=== PATIENT | female | born 1955 | race Caucasian/White ===

== ENCOUNTER 2024-12-19 18:36 | Emergency (ER) | payer MEDICARE, SELFPAY ==
--- NOTE | ~2024-12-19 | XR_ITS ---
CLINICAL HISTORY: pain Right elbow three views Comparison: None Findings: No acute fracture or dislocation noted. No significant joint effusion identified. No soft tissue foreign body. Impression: No acute bony abnormality This document has been electronically signed by: Huan Cano MD on 12/19/2024 20:13:53
--- NOTE | ~2024-12-19 | XR_ITS ---
CLINICAL HISTORY: pain s p fall Right wrist four views Comparison: None Findings: Nondisplaced comminuted distal radius fracture. Nondisplaced ulnar styloid fracture. Diffuse decreased bone density. No radiopaque foreign body. Impression: Nondisplaced distal radial and ulnar styloid fractures This document has been electronically signed by: Huan Cano MD on 12/19/2024 20:15:31
[2024-12-19 19:00] VITALS: BP 156/56; PULSE 78; RESP 20; TEMP 36.9; O2SAT 99; BMI 30.7
--- NOTE | 2024-12-19 19:02 | ED_ITS ---
HPI - Fall General Chief Complaint: Fall Stated Complaint: ?R arm fx/ sent from Time Seen by Provider: 12/20/24 00:17 Source: patient Mode of arrival: ambulatory Limitations: no limitations History of Present Illness ED Provider: kiley maloney NP HPI Narrative: Patient is a 69-year-old female with past medical history of hypertension, hyperlipidemia, CKD stage 3 who presents emergency department with her son for evaluation. Reports a mechanical slip and fall on the ice today landing onto her right arm. Endorsing pain to the right wrist with swelling and deformity, and pain at the elbow as well. Denies numbness tingling or cold sensation to the hand. She denies associated head strike or loss of consciousness. No use of anticoagulants. Related Data Allergies Allergy/AdvReac Type Severity Reaction Status Date / Time No Known Allergies Allergy Verified 12/19/24 19:03 [No Known Allergies*] Review of Systems Review of Systems: Yes all other systems are reviewed and are negative PMFSH Past Medical History Attestation statement: The following information was validated with the patient. Source: old records reviewed Social History Social History Do you have a plan to hurt others: No Plan Physical Exam 2 Vital Signs: Vital Signs: Last Vital Signs Temp 98.4 F 12/19/24 19:00 Pulse 78 12/19/24 19:00 Resp 20 12/19/24 19:00 BP 156/56 H 12/19/24 19:00 Pulse Ox 99 12/19/24 19:00 O2 Del Method Room Air 12/19/24 19:00 BMI result Body Mass Index 30.7 Appearance: Alert.?Oriented to person, place and time. No acute distress.?Normal affect. Head: Normocephalic, atraumatic Eyes: Pupils equal, round and reactive to light.? ENT: Pharynx normal.?? Neck: Normal inspection.? Neck supple.?? CVS: Heart sounds normal. Normal heart rate and rhythm.? Pulses normal.?? Respiratory: No respiratory distress.? Lung sounds clear to auscultation bilaterally?? Abdomen: Soft and non-tender. Normoactive bowel sounds. Skin: Skin warm and dry.? Normal skin color.? Extremities: Bony deformity to the right wrist with localized swelling localized ecchymosis over the dorsal wrist, tenderness upon palpation. 2+ radial pulse. Full range of motion to the digits. Full range of motion to the elbow without ecchymosis or swelling. Mild tenderness along the olecranon Neuro: Moves all extremities spontaneously. Sensation intact bilaterally. CN II- XII intact. No focal neuro deficits. Ambulates with normal steady gait. Course Course Course Narrative: This is an RME: Additional HPI, ROS, PE not included below will be deferred to primary provider. RME assessment and note performed by: Yajaira Betts PA-C This is a 69-year-old female, with a history of hypertension, hyperlipidemia, and CKD stage III, who presents emergency department with concerns for right wrist pain status post mechanical fall which occurred today. Patient with bony deformity noted to the right wrist. He also has tenderness palpation along the olecranon. Plan: X-ray right wrist, right elbow Procedures Orthopedic Splinting/Casting Injury #1: Side: right Upper Extremity Injury Location: wrist Upper Extremity Immobilizer: sugar tong splint Medical Decision Making Medical Decision Making MDM Narrative: Patient is a 69-year-old female with past medical history of hypertension, hyperlipidemia, CKD stage 3 who presents emergency department for evaluation after mechanical slip and fall with a resultant pain to the right wrist and elbow as per HPI. Exam most concerning for osseous deformity to the right wrist, XR of the wrist and elbow was obtained, revealing nondisplaced comminuted distal radius fracture, and ulnar styloid fracture. Extremities neurovascularly intact distally. No acute fracture in the elbow. She was placed in a sugar- tong splint, and remained neurovascularly intact distally after application. Discussed outpatient follow-up with Orthopedics, conservative treatment over the next few days worrisome signs and symptoms that would warrant re-evaluation in the emergency department. She denies any head strike or loss of consciousness no use of anticoagulants she has no focal neurological deficits on evaluation. At this time feel that she is stable for discharge home outpatient follow-up with her primary care doctor/Orthopedics. All questions answered Differential Diagnosis Differential Diagnoses: The differential diagnosis associated with the presentation includes (See narrative above) Independent Interpretation I performed an independent interpretation of an: Plain X-Ray (See narrative above) Radiology Impression Discussion of test interpretation with radiology: I have reviewed the radiologist's reading. Radiologist Impression: Right wrist four views Comparison: None Findings: Nondisplaced comminuted distal radius fracture. Nondisplaced ulnar styloid fracture. Diffuse decreased bone density. No radiopaque foreign body. Impression: Nondisplaced distal radial and ulnar styloid fractures Right elbow three views Comparison: None Findings: No acute fracture or dislocation noted. No significant joint effusion identified. No soft tissue foreign body. Impression: No acute bony abnormality Independent Historian Clinical information obtained from an independent historian. History obtained from or confirmed by: Other (Son) External Record Review External record reviewed: Outpatient record Prescription Management I considered prescription management with: Pain Medication Discharge Plan Discharge Clinical Impression: Distal radius fracture, right, Fracture of right ulnar styloid Patient Disposition: Home, Self-Care Instructions: Wrist Fracture in Adults (ED), R.I.C.E. Treatment (ED) Additional Instructions: Be sure to rest over the next few days, leave the splint in place until seen by Orthopedics. The splint can not get wet. If you feel as though you are having severe increasing pain, sensation of swelling or as if the splint is too tight, numbness or tingling to the fingers or inability to move the fingers, the tips of the fingers turning abnormal color you should seek re-evaluation. You can take Tylenol 500 mg, 2 tablets (1,000mg) every 4-6 hours as needed for pain, but not to exceed 3 doses daily (3,000mg).? You will need to contact the orthopedic office tomorrow to arrange for a follow- up appointment. They will not contact you directly. Referrals: [facility] [Provider Group] Physician,Unknown J [Primary Care Provider] - Print Language: Ukrainian
[2024-12-20] MEDS: Acetaminophen 325 MG TABLET 975 MG PO (01:20)
[2024-12-20 01:57] VITALS: BP 139/75; PULSE 79; RESP 18; TEMP 36.8; O2SAT 97
== END 2024-12-20 01:57 | disposition home or self-care (01) ==
PROVIDERS: Emergency Provider Emergency Medicine; PCP Hospitalist
DX: S52.501A Unspecified fracture of the lower end of right radius, initial encounter for closed fracture (principal); S52.614A Nondisplaced fracture of right ulna styloid process, initial encounter for closed fracture; W00.0XXA Fall on same level due to ice and snow, initial encounter; M79.601 Pain in right arm; Y93.9 Activity, unspecified; Y92.9 Unspecified place or not applicable; Y99.9 Unspecified external cause status
CPT/HCPCS: 29125; 73080; 73110; 99283; 99284

== ENCOUNTER → 2024-12-19 19:05 | Outpatient (BNV) | payer MEDICARE, MEDICAID, SELFPAY | PROVIDERS: Visit Provider Radiology Diagnostic Radiology | DX: S52.351A Displaced comminuted fracture of shaft of radius, right arm, initial encounter for closed fracture (principal); M25.521 Pain in right elbow; W00.0XXA Fall on same level due to ice and snow, initial encounter | CPT/HCPCS: 73080; 73110 ==

== ENCOUNTER 2024-12-26 08:43 | Outpatient (REF) | payer MEDICARE, SELFPAY ==
--- NOTE | ~2024-12-26 | XR_ITS ---
EXAMINATION: XR WRIST 3 OR MORE VIEWS RIGHT HISTORY: M25.531 - Pain in right wrist COMPARISON: Comparison is made with a prior examination dated 12/19/2024. FINDINGS: Three views of the right wrist are submitted. The bones are osteopenic. Again seen is a comminuted intra-articular fracture of the distal radius. The fracture line remains visible. An ulnar styloid fracture is also noted. The joint spaces are preserved. There is diffuse soft tissue swelling. XR/XR wrist RT min 3V IMPRESSION: Osteopenia. Comminuted intra-articular fracture of the distal radius with an associated ulnar styloid fracture, without significant change. Electronically signed by: Carlos Manuel Vega MD 12/27/2024 07:40 AM MARIA ANTONIA
--- OUTSIDE RECORDS SUMMARY | 2024-12-27 09:26 | XMS_ITS ---
Author Organization [facility] Address [address] [place] [id number] Care Team Providers Care Fitness Plan Coordinator Name Role Phone KATHARINA ANGEL Primary Care Provider [phone] REASON FOR VISIT referral to Dr. Moy Encounters Encounter Location Date Provider Diagnosis [facility] [address] [address] 12/22/2024 KATHARINA ANGEL Plan Of Treatment Next Appt Details Provider Name:KATHARINA ANGEL , 06/14/2025 09:45:00 AM, [address] [place] [address] [address], [place], [address], Progress Notes * Ailyn BOSWELL: (69 yo F)Acc No.[id number]:12/22/2024 Patient:?Ben BOSWELL :1955???Age:69 Y???Sex:Female Address:[address], [place] [address] * * Date:?
--- OUTSIDE RECORDS SUMMARY | 2024-12-27 09:26 | XMS_ITS ---
Author Organization [facility] Address [address] [facility] [address] [place] [address] Care Team Providers Care Procurement Engineer Name Role Phone KATHARINA ANGEL Primary Care Provider Allergies No Known Allergies Reason For Referral Reason EUN- Dr Moy Diagnosis 1 Anxiety disorder, un specified (F41.9) Referral Organization [facility] Referring Provider First Name [...] days Active Vitamin D (Ergocalciferol) 1.25 MG (59722 UT) TAKE 1 CAPSULE BY MOUTH ONE [...] Problem Chronic kidney disease stage 3B (disorder) (904783562) Chronic kidney disease, stage 3b (N18.32) Active confirmed Problem Obesity due to excess calories (780038021) Other obesity due to excess calories (E66.09) Active confirmed Vital Signs Temperature 97.3 degrees Fahrenheit 12/13/19 25 Oximetry 98 % 12/13/2024 Heart Rate 80 /min 12/13/2024 Blood pressure systolic 130 mm Hg 12/13/19 25 Blood pressure diastolic 80 mm Hg 025 Weight 175.2 lbs 12/13/2024 BMI 33.1 kg/m2 12/13/2024 Height 61 in 12/13/2024 Encounters Encounter Location Date Provider Diagnosis [facility] [address] [address] 12/13/2024 KATHARINA ANGEL Encounter for genera l [...] (ICD-10 - Z00.00) is 69 years old Armenian speaking lady is accompanied by her daughter [...] lisinopril, atorvastatin and Zetia. 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 Foot care [...] Dr. Camarillo. Multiple joint osteoarthritis. She takes orvc-otu-qzidjfw Tylenol and also takes tizanidine 2 mg [...] (ICD-10 - E11.8) is 69 years old Armenian speaking lady is accompanied by her daughter [...] lisinopril, atorvastatin and Zetia. 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 Foot care [...] Dr. Camarillo. Multiple joint osteoarthritis. She takes krgj-dns-ncsbiea Tylenol and also takes tizanidine 2 mg [...] (ICD-10 - I10) is 69 years old Armenian speaking lady is accompanied by her daughter [...] lisinopril, atorvastatin and Zetia. 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 Foot care [...] Dr. Camarillo. Multiple joint osteoarthritis. She takes guij-mml-znrmath Tylenol and also takes tizanidine 2 mg [...] (ICD-10 - E78.2) is 69 years old Armenian speaking lady is accompanied by her daughter [...] lisinopril, atorvastatin and Zetia. 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 Foot care [...] Dr. Camarillo. Multiple joint osteoarthritis. She takes dnmn-zow-mohnrwe Tylenol and also takes tizanidine 2 mg [...] (ICD-10 - N18.32) is 69 years old Armenian speaking lady is accompanied by her daughter [...] lisinopril, atorvastatin and Zetia. 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 Foot care [...] Dr. Camarillo. Multiple joint osteoarthritis. She takes ywjg-zby-eprljvz Tylenol and also takes tizanidine 2 mg [...] (ICD-10 - M81.0) is 69 years old Armenian speaking lady is accompanied by her daughter [...] lisinopril, atorvastatin and Zetia. 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 Foot care [...] Dr. Camarillo. Multiple joint osteoarthritis. She takes ypve-vot-mfhcwcb Tylenol and also takes tizanidine 2 mg [...] (ICD-10 - E66.09) is 69 years old Armenian speaking lady is accompanied by her daughter [...] lisinopril, atorvastatin and Zetia. 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 Foot care [...] Dr. Camarillo. Multiple joint osteoarthritis. She takes rujt-ugz-yvprmhb Tylenol and also takes tizanidine 2 mg [...] (ICD-10 - Z71.3) is 69 years old Armenian speaking lady is accompanied by her daughter [...] lisinopril, atorvastatin and Zetia. 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 Foot care [...] Dr. Camarillo. Multiple joint osteoarthritis. She takes icoa-jvq-jnrizlr Tylenol and also takes tizanidine 2 mg [...] Future Test Test Name Order Date Hemoglobin [id number] 12/13/2024 Referrals Referral Date Details 12/13/2024 12/13/2024, EUN- Dr Moy Next Appt Details Follow Up: 6 Months, Reason: Provider Name:POSADAS A GUL , 06/14/2025 09:45:00 AM, [address] [address], [place], [address], Progress Notes * Amado BOSWELLaDOB: [birth year] (69 yo F)Acc No.[id number]:12/13/2024 Progress Note Patient:?Ben BOSWELL Provider:?KATHARINA ANGEL MD :1955???Age:69 Y???Sex:Female D ate:12/13/2024 Address:[address] [place], [place] [id number] Subjective: * Chief Complaints: * ???Medicare Wellness [...] a day Vitamin D (Ergocalciferol) 1.25 MG (57772 UT) Capsule TAKE 1 CAPSULE BY MOUTH [...] day Taking Vitamin D (Ergocalciferol) 1.25 MG (62043 UT) Capsule TAKE 1 CAPSULE BY MOUTH [...] Ht: 61 in. * ???Past Orders: ???Lab:Hemoglobin [id number] (Order Date - 06/12/2024) (Collection Date & Time - 12/11/2024 10:57 AM) ? Value Reference Range ?Hemoglobin A1c/ Hemoglobin total 8.0 H 4.8-5.6 - % ???Lab:Albumin/Creatinine Ra oumar,[id number] (Order Date - 06/12/2024) (Collection Date & Time - 12/11/2024 10:57 AM) ? Value Reference Range ?Creatinine, Urine 113.6 No t Estab. - mg/dL ?Albumin, Urine 218.3 Not E stab. - ug/mL ?Alb/Creat Ratio 192 H 0-29 - mg/g creat ???Lab:Comp. Metabolic Panel [id number] (Order Date - 06/12/2024) (Collection Date & [...] 37 L >59 - mL/min/1. 73 ???Lab:Lipid [id number] (O rder Date - 06/12/2024) (Collection Date [...] surveillance - Z71.3??? is 69 years old Armenian speaking lady is accompanied by her daughter [...] lisinopril, atorvastatin and Zetia.? She is seen modular home crew member in the past 1 year.? Foot care [...] Dr. Camarillo. Multiple joint osteoarthritis.? She takes dobm-nnh-mhekgfr Tylenol and also takes tizanidine 2 mg [...] day, 30 days, 5, Refills 6.?LAB: Hemoglobin [id number] (Ordered for 12/13/2024) 3.?Age-related osteoporosis without current pathological fracture?Imaging: Bone Density 4.?Others? Referral To:Psychiatry ?Reason:EUN- Dr Moy * Procedure Codes:?G0439 ANNUA L WELLNESS VST; PPS SUBSQT [id number] ELECTROCARDIOGRAM, [id number] HG A1C LEVEL LT 7.0%1123F ACP DISCUSS/DSCN MKR [id number] Scrn patricia perf rslts [id number] COLORECTAL CA SCREEN DOC REV, Modifiers: 8P G8417 BMI >=30 CALCUATE W/CMRQDPRXU2511 NEG SCR D PT NOT ELIG F/U/PLN [id number] ELDER MALTX SCR DOC NEG NO F/U [id number] Pt scrn tbco id as non [id number] MOST RECENT SYSTOLIC BP < 140MM [id number] MOST RECENT DIASTOLIC BP < 90MM [id number] NORMAL BP READING DOC F/U NOT RQR * Preventive Medicine:?COVID (2) 2020 DECLINES FLU PCV 13 12/2016 TDAP 09/2022 BMD NO COLONOSCOPY DECLINES? EYE EXAM 2024 E[facility] L[facility]IK C[facility]? BUSINESS INTELLIGENCE ARCHITECT [facility]? MAMMOGRAM [facility] 12/2022. * Follow Up:?6 Months * * Sign off status: Completed true * Provider:?KATHARINA ANGEL MD Date:?12/13 Generated for Nelly castro/Abhay/Christen on:?12/27/2024 09:26 AM EST History and Physical Notes * HPI [...] Poor appetite or overeating: More than h halfway the days Feeling bad about yourself o [...] Visit Type of Visit -: Subsequent Annual [facility] Visit Language or Communication barrier addressed -: Y es Health Risk Assessment DEMOGRAPHICS: - - How old are you?: [age] - How would you best describe your [facility] city?: __ - How would you [...]
--- OUTSIDE RECORDS SUMMARY | 2024-12-27 09:26 | XMS_ITS | Clinical Summary ---
Author Organization [facility] Address [address] [place] [address] Care Team Providers Care Director Career Services Name Role Phone Vandana Goode NP Primary Care Provider Source Comments PLEASE NOTE, if this patient [...] complication, without long-term current use of insulin ([facility]) 1 Strip as needed for high blood sugar Dx.: E11.9 Use tid as directed for dm 100 Each 11 09/19/20 18 Active blood-glucose meter (FREESTYLE LITE METER) monitoring kitIndications:T ype 2 diabetes mellitus without complication, without long-term current use of insulin ([facility]) as needed for blood glucose monitoring 1 Each 09/19/20 18 Active lancetsIndicatio ns:Type 2 diabetes mellitus without complication, without long-term current use of insulin ([facility]) Freestyle lite lancets Dx.: E11.9 Use tid [...] complication, without long-term current use of insulin ([facility]),Essent ial hypertension TAKE 1 TABLET BY MOUTH EVERY DAY 30 Tablet 11 12/02/19 21 Active DULoxetine (CYMBALTA) [address] capsuleIndicatio ns:Current severe episode of major depressive disorder without psychotic features without prior episode ([facility]) Take 1 Capsule by mouth once [...] complication, without long-term current use of insulin ([facility]) TAKE 1 TABLET BY MOUTH ONCE [...] complication, without long-term current use of insulin ([facility]) TAKE 1 TABLET BY MOUTH ONCE DAILY WITH BREAKFAST 30 Tablet 2 10/12/20 22 Active Active Problems Problem Noted Date Diagnosed Date Class 1 obesity due to exces s calories with serious comorbidity and body mass index (BMI) of 31.0 to 31.9 in adult 03/25/2021 Current severe episode of ma alis depressive disorder without psychotic features without prior episode ([facility]) 02/27/2021 Endometrial polyp 08/20/2020 Overview (08/20/2020): 07/22/[address] Bolton Post-menopausal bleeding 08/24/2019 Overview (08/24/2019): 08/19/19 - seen at [facility] ED c/o vaginal bleeding. Pelvis U/S: [...] kidney disease) stage 3, GFR 30-59 ml/min ([facility]) 01/16/2018 Overview (11/06/2024): 11/06/24 f/u Dr [...] episode 12/21/17 01/11/2018 Overview (01/11/2018): 12/21-12/22/17 [place] [facility] [place] of syncope/ unreponsivenss following an emotional conversation with son who is in [place]. She had NIH score of 3 initially for being nonverbal but otherwise normal. CT and CTA h/n of head neg, tele monitoring without any cardiac arrthymias. Discharged next day. Outpatient ECHO and Holter monitor recommended Pap smear of cervix declined 12/30/2016 Colonoscopy refused 12/30/2016 Non-Surinamese speaking patient 10/13/2016 Non compliance with medical [...] c3-4 foramen. 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 ([facility]) 09/05/2015 Left shoulder pain 09/04/2015 Overview [...] complication, without long-term current use of insulin ([facility]) 06/01/2013 Resolved Problems Problem Noted Date [...] 06/02/2022, 08/0 12/2021, 12/15/2021, Additional history exists [id number] ( season) 2024 021, 12/28/2020 Imm-Influenza (#1) [...] complication, without long-term current use of insulin ([facility]) LIPID PANEL Routine 01/14/2021 12:00 PM EDT Type 2 diabetes mellitus without complication, without long-term current use of insulin ([facility]) HEMOGLOBIN GLYCOSYLATED A1C Routine 01/14/2021 12:00 PM EDT Type 2 diabetes mellitus without complication, without long-term current use of insulin ([facility]) MICROALBUMIN/CREATININ E RATIO, URINE, RANDOM Routine 01/14/2021 11:54 AM EDT Type 2 diabetes mellitus without complication, without long-term current use of insulin ([facility]) MAMMOGRAM, ABSTRACTED DISCRETE Routine 06/23/2019 8:55 AM EDT DILATED RETINAL EXAM W/EVIDENCE OF RETINOPATHY Routine 07/21/2018 8:36 AM EDT HEPATITIS A,B,C PANEL Routine 01/14/2018 10:53 AM EDT Encounter to establish care from Last 3 Months or Most Recently Relevant to Health Maintenance Results * (ABNORMAL) HEMOGLOBIN, GLYCOSYLATED (A1C) (01/14/2021 12:00 PM EDT) GLYCATED HEMOGLOBIN A1C 8.4(H) <6.5 % [facility] EST[facility]ER[facility] GLUCOSE 194 mg/dL [facility] Blood Blood / Unknown 01/14/2021 1 2:00 PM EDT 01/14/2021 4:23 PM EDT Randy French [facility] - 01/14/2021 8:07 PM EDT [employer], [place] [address] Business Advisor - Leandra Anderson MD PT ID [id number] ORD# [id number] Melissa Reyes [facility] - BLOOD DRAW Final Re sult Performing Organization Address City/[facility]/ZIP Co de Phone Number [address] [address], [place] [phone] * (ABNORMAL) LIPID PANEL (01/14/2021 12:00 PM EDT) CHOLESTEROL 168 0 - 200 mg/dL [facility] TRIGLYCERIDES 198(H) 0 - 150 mg/dL [facility] HDL CHOLESTEROL 62 >40 mg/dL [facility] LDL CALCULATED 67 0 - 100 mg/dL [facility] TC-HDLC RATIO 2.7 0 - 4.4 mg/dL [facility] Blood Blood / Unknown 01/14/2021 1 2:00 PM EDT 01/14/2021 4:23 PM EDT Narrative [facility] - 01/14/2021 5:10 PM EDT [facility] [employer], [place] [address] Business Advisor - Leandra Anderson MD PT ID [id number] ORD# [id number] Melissa Reyes [facility] - BLOOD DRAW Final Re sult Performing Organization Address [facility]/ZIP Co de Phone Number [address] [address], * (ABNORMAL) COMPRE METAB PANEL (01/14/2021 12:00 PM EDT) GLUCOSE 260(H) 70 - 100 mg/dL [facility] Comment:Reference range appl icable to fasting specimens only BUN 54(H) 5 - 25 mg/dL [facility] CREAT 1.49(H) 0.5 - 1.1 mg/dL [facility] GLOMERULAR FILTRATION RATE 35 [facility] Comment: If patient is -[place], multiply result by 1.21 Chronic Kidney Disease: < 60 ml/min/1.73 square meters Kidney Failure: < 15 ml/min/1.73 square meters SODIUM 137 135 - 145 mEq/L [facility] POTASSIUM 4.1 3.5 - 5.5 mmol/L [facility] CHLORIDE 104 96 - 110 mmol/L [facility] CO2 24 21 - 32 mmol/L [facility] ANION GAP 9 3 - 11 [facility] CALCIUM 10.0 8.5 - 10.5 mg/dL [facility] TOTAL PROTEIN 7.6 6.0 - 8.0 G/dL [facility] ALBUMIN 4.0 3.2 - 5.0 G/dL [facility] BILI, TOTAL 0.5 0.0 - 1.4 mg/dL [facility] SGOT 12 10 - 42 U/L [facility] SGPT 28 10 - 60 U/L [facility] ALK PHOS 137(H) 42 - 121 U/L [facility] Blood Blood / Unknown 01/14/2021 1 2:00 PM EDT 01/14/2021 4:23 PM EDT Narrative [facility] - 01/14/2021 5:10 PM EDT [facility], [place] [address] Business Advisor - Leandra Anderson MD PT ID [id number] ORD# [id number] Melissa Reyes [facility] - BLOOD [place]RAW [place] [address], * MICROALBUMIN/CREATININE RATIO, URINE, RANDOM (01/14/2021 11:54 AM EDT) CREATININE, RANDOM URINE 113 mg/dL [facility] MICROALBUMIN, RANDOM 15.7 0.0 - 29.0 mg/L [facility] MICROALB/CRE RATIO RANDOM 13.8 0.0 - 30.0 mg/G [facility] Urine Urine specimen / Unknown 01/14/2021 11:54 AM EDT 01/14/2021 4:23 PM EDT Narrative [facility] - 01/14/2021 5:24 PM EDT [facility] [employer], a member of [address] [address] Business Advisor - Leandra Anderson MD PT ID [id number] ORD# [id number] Melissa Reyes [facility] - NO BLOOD DRAW Edite d Result - Final [address] [address], * MAMMOGRAM, ABSTRACTED (06/23/2019 8:55 AM EDT) MAMMOGRAM NEGATIVE NEGATIVE Anatomical Region Laterality Modality Other Impressions 06/23/2019 8:55 AM EDT No mammogramic evidence of malignancy BIRADS - 1 negative repeat 1 year Provider [facility] Final Result * DILATED RETINAL EYE EXAM WITH INTERPRETATION BY AN COUNTER CUTTER OR SPECIAL PROJECTS MANAGER DOCUMENTED AND REVIEWED (DM)4 (07/21/2018 8:36 AM EDT) Impressions Danielle Neumann MA - 07/21/2018 8:36 AM EDT DM diabetes with mild, non-proliferative diabetic retinopathy noted- both eyes Repeat 1 year Provider [facility] OTHER Final Result * (ABNORMAL) HEPATITIS A,B,C PANEL (01/14/2018 10:53 AM EDT) HEPATITIS B SURFACE ANTIBODY NEGATIVE NEGATIVE [facility] HEPATITIS B SURFACE ANTIGEN NEGATIVE NEGATIVE [facility] Comment: Over the counter supplements containing high doses of biotin may interfere with this assay. ??If interference is suspected, patients shoud be retested after refraining from biotin supplements for 72 hours. HEPATITIS C VIRUS DIAGNOSTIC NEGATIVE NEGATIVE [facility] HEPATITIS A ANTIBODY TOTAL POSITIVE(A) NEGATIVE [facility] Comment: Over the counter supplements containing high doses of biotin may interfere with this assay. ??If interference is suspected, patients shoud be retested after refraining from biotin supplements for 72 hours. HEPATITIS B CORE ANTIBODY NEGATIVE NEGATIVE [facility] Blood specimen (specimen) Blood / Unknown 01/14/2018 10:53 AM EDT 01/14/2018 10:56 AM EDT Narrative [facility] - 01/14/2018 12:46 PM EDT [facility] [employer] [address] [place] [address] PT ID [id number] ORD# [id number] us Sujey Alfaro PA-C LAB - BLOOD DRAW Edited R esult - Final [facility] [address] [place] [address], from Last 3 Months or Most Recently Relevant to Health Maintenance Insurance [facility] MEDICAID MEDICARE - [place] Care Teams Director Career Services Relationship Specialty Start Date End Date Vandana Goode NP [address] [place] [phone] PCP - General Family Medicine, REVENUE AGENT 08/28/24
--- OUTSIDE RECORDS SUMMARY | 2024-12-27 09:26 | XMS_ITS | Encounter Summary ---
Author Organization [facility] Address [address] [place] [address] Care Team Providers Care Operating Engineer Name Role Phone Vandana Goode FENDER MECHANIC APPRENTICE Primary Care Provider [phone] Encounter Details Date Type Department Care Team (Late st Contact Info) Description 10/21/2015 Interim Notes [facility] [address] [place] [phone] Kerrie Wooten, COUNSELOR [address] [place] [address] Social History Tobacco Use Types Packs/Day Years [...] documented as of this encounter Care Teams Operating Engineer Relationship Specialty Start Date End Date Vandana Goode NP [address] [place] [address] PCP - General Family Medicine, FENDER MECHANIC APPRENTICE 08/28/24 documented as of this encounter
--- OUTSIDE RECORDS SUMMARY | 2024-12-27 09:26 | XMS_ITS ---
Author Organization [facility] Address [address] [place] [phone] Care Team Providers Care Civil Design Technician Name Role Phone KATHARINA ANGEL Primary Care Provider REASON FOR VISIT Test Strips Refills Medications Medication SIG (Take, Route, Fr equency, Duration) Notes Start Date End Date Status FreeStyle Lite Test - 1 strip once a day Dx: E11.8 for 90 days Active Encounters Encounter Location Date Provider Diagnosis [facility] [address] [address] 12/13/2024 KATHARINA ANGEL Plan Of Treatment Medication Medication Name Sig Start Date Stop Date Notes FreeStyle Lite Test - 1 strip once a day Dx: E11.8 for 90 days Next Appt Details Provider Name:KATHARINA ANGEL , 06/14/2025 09:45:00 AM, [address] [place] [address], [place], [address], Progress Notes * Amado BOSWELLaDOB: (69 yo F)Acc No.[id number]:12/13/2024 Patient:?ELBERT, Fabianka :1955???Age:69 Y???Sex:Female [facility] [place] [address] * Refills? Refill FreeStyle Lite Test Strip, -, 90, 1 strip once a day Dx: E11.8, 90 days, Refills=11 * true * Date:? Generated for Nelly castro/Abhay/eTransmitting on:?12/27/2024 09:25 AM EST
--- OUTSIDE RECORDS SUMMARY | 2024-12-27 09:27 | XMS_ITS | Clinical Summary ---
Author Organization [facility] Address [address] [place] [phone] Phone Care Team Providers Care Strategy Specialist Name Role Phone Yang Fernando MD Primary Care Provider [phone] Allergies No known active allergies Medications Trulicity [...] MG tablet 2 Active ergocalciferol 1.25 MG (38625 UT) capsule Take 50,000 Units by mouth [...] 08/24/2019 Overview (11/24/2021): 08/19/19 - [facility] ED c/o vaginal bleeding. Pelvis U/S: [...] Near syncope 01/11/2018 Overview (11/24/2021): [place] [facility] [place] of [place]ope/ unreponsivenss following [...] Office Visit [facility] [address] [address] Taqueria Cordero MD Stage 3 chronic kidney disease, not otherwise specified (HCC) (Primary Dx); Hypertensive chronic kidney disease; Type 2 diabetes mellitus with diabetic chronic kidney disease (HCC); Other proteinuria 10/01/2024 Orders Only [facility] [address] [address] Mark Ford MD Stage 3a chronic kidney [...] Office Visit [facility] [address] [address] Taqueria Cordero MD [address] [phone] Health Maintenance Due Date Last Done Comments [...] Creatinine, Ur 113.6 Not Estab. mg/dL [facility] Albumin, Urine 225.2 Not Estab. ug/mL [facility] Albumin/Creatin ine Ratio 198(H) 0 - 29 mg/g creat [facility] Comment: ? Normal: ?0 - ??29 ? Moderately increased: 30 - 300 ? Severely increased: ? >300 Urine (Urine, Clean Catch) 12/11/2024 10:35 AM EST 12/11/2024 Taqueria Cordero MD LAB URINE ORDERABLES Final Resul t Performing Organization Address City/[facility]/ZIP Co de Phone Number [facility] [address] [place] [address] * (ABNORMAL) Vit D 25 hydroxy (12/11/2024 10:35 AM EST) Vitamin D, 25-OH, Total 24.0(L) 30.0 - 100.0 ng/mL [facility] Comment: Vitamin D deficiency has been defined by the [place] of Medicine and an Endocrine Society practice guideline as a level of serum 25-OH vitamin D less than 20 ng/mL (1,2). The Endocrine Society went on to further define vitamin D insufficiency as a level between 21 and 29 ng/mL (2). 1. IOM ([place] of Medicine). 2010. Dietary reference ?? intakes for calcium and D. [place]: The ?? National needmade Press. 2. Shari MF, Lillian NC, Nathan FERRELL, et al. ?? Evaluation, treatment, and prevention of vitamin D ?? deficiency: an Endocrine Society clinical practice ?? guideline. JCEM. 2010; 96(7):1911-30. Blood (Blood, Venous) 12/11/2024 10:35 AM EST 12/11/2024 us Taqueria Cordero MD LAB BLOOD ORDERABLES Final Resul t Performing Organization Address City/[facility]/ZIP Co de Phone Number [facility] [address] [place] [address] * (ABNORMAL) PTH, intact (12/11/2024 10:35 AM EST) PTH 96(H) 15 - 65 pg/mL [facility] Blood (Blood, Venous) 12/11/2024 10:35 AM EST 12/11/2024 us Taqueria Cordero MD LAB BLOOD ORDERABLES Final Resul t LABCOHIGH [facility] [address] [place] [address] * (ABNORMAL) Renal funtion panel (12/11/2024 10:35 AM EST) Glucose 190(H) 70 - 99 mg/dL [facility] BUN 35(H) 8 - 27 mg/dL [facility] Creatinine 1.57(H) 0.57 - 1.00 mg/dL [facility] eGFR CKD-EPI CR 2020 35(L) >59 mL/min/1.7 3 [facility] BUN/Creatinine Ratio 22 12 - 28 [facility] Sodium 139 134 - 144 mmol/L [facility] Potassium 4.8 3.5 - 5.2 mmol/L [facility] Chloride 104 96 - 106 mmol/L [facility] Bicarbonate (CO2) 19(L) 20 - 29 mmol/L [facility] Calcium 9.8 8.7 - 10.3 mg/dL [facility] Albumin 4.4 3.9 - 4.9 g/dL [facility] Phosphorus 3.6 3.0 - 4.3 mg/dL [facility] Blood (Blood, Venous) 12/11/2024 10:35 AM EST 12/11/2024 us Taqueria Cordreo MD LAB BLOOD ORDERABLES Final Resul t [facility] [address] [place] [address] * (ABNORMAL) Hemoglobin A1c (06/02/2022 2:46 PM EDT) Hemoglobin A1C 7.5(H) (4.0-5.6) % [facility] Comment: MONITORING: In known diabetic patients, hemoglobin A1c targets should be discussed with health care provider. DIAGNOSTIC USE: ??The [place] Diabetes Association (ADA) and the World Health [...] Supplement 1 Testing performed or reported by [facility], a Service of [facility], [address] [place] [address] Khanh Lopez MD, Research Manufacturing Operator [facility]# [id number] Blood (Blood, Venous) 06/02/2022 2:46 PM EDT 06/02/2022 2:49 PM EDT us Kartik Ureña MD LAB BLOOD ORDERABLES Final Re sult [facility] from Last 3 Months or Most Recently Relevant to Health Maintenance Insurance [place] Care Teams Strategy Specialist Relationship Specialty Start Date End Date Yang Fernando MD [address] [place] [address] PCP - General Internal Medicine 12/02/21
== END 2024-12-26 08:44 | disposition home or self-care (01) ==
LOC: HO.HOSX 08:43
PROVIDERS: Visit Provider Orthopaedic Surgery
DX: M25.531 Pain in right wrist (principal); S52.571D Other intraarticular fracture of lower end of right radius, subsequent encounter for closed fracture with routine healing; S52.611D Displaced fracture of right ulna styloid process, subsequent encounter for closed fracture with routine healing
CPT/HCPCS: 25600; 73110; 99202

== ENCOUNTER 2024-12-26 10:35 | Outpatient (AMB) | payer MEDICARE, MEDICAID, SELFPAY ==
[2024-12-26 10:51] VITALS: BMI 31.6
--- NOTE | 2024-12-26 10:51 | A.OFFVIS_ITS ---
Vital Signs 12/26/24 10:51 Height 5 ft 2 in Weight 173 lb BMI 31.6 Intake Visit Reasons: FC- RT distal radial and ulnar styloid fx, 12/20/24 Intake Note: Ben is a 69 year old right hand dominant female who presents today with her son for an ER follow up of RT distal and ulnar styloid fracture, DOI 12/20/24. Patient reports that she slipped and fell on ice landing on her right arm. Patient presented to [facility] [place] [facility] ER where x-rays were taken, she was placed in a splint and referred to orthopedic. Currently she has intermittent pain that increases at night time. Finds little relief with Tylenol. She had 1 episode of numbness in her thumb however she believes this was caused from the splint being too tight. Belt Buckle Maker Required: Yes Belt Buckle Maker Services: Belt Buckle Maker Present Belt Buckle Maker Name: Verónica ID#[id number] Allergies No Known Allergies [No Known Allergies*] Allergy (Verified 12/26/24 10:57) HPI HPI FC- RT distal radial and ulnar styloid fx, 12/20/24: Details: Ben is a 69 year old right hand dominant Malay speaking woman who presents for a right wrist fracture, S/P fall, DOI: 12/19/24. She was seen in the ED and placed in a Sugar-tong splint. She is seen today with her son who is getting on . She complains of pain in her wrist, worse at night. She is managing this with Tylenol. She reports occasional numbness in her fingers, that has improved since after her fall. She denies any elbow pain. She complains that her elbow is very itchy under her splint. [facility] Surgical History (Updated 12/26/24 @ 11:01 by ROMIE Valle) Hx of removal of cyst Social History (Updated 12/26/24 @ 11:01 by ROMIE Valle) Alcohol intake: never Review of Systems Const All systems reviewed & are unremarkable except as noted in HPI and below Physical Exam Vital Signs: BMI result Body Mass Index 31.6 Const General: cooperative, healthy appearing and no acute distress Orientation/consciousness: patient oriented x3 HEENT Head: Yes normocephalic and Yes atraumatic Eyes EOM: EOMs intact bilaterally Resp Effort & Inspection: normal respiratory effort and able to speak in complete sentences Cardio Jugular venous distension: no JVD Skin General skin exam: turgor normal Rashes: no rashes Neuro General: patient oriented x3 Extrem Other: Evaluation of Right Upper Extremity: The patient is alert, oriented, and in no acute distress Neuro: Median, Ulnar, Radial nerves motor and sensory intact and sensation is normal to the tips of all digits Vascular: Cap refill brisk ROM: With encouragement She can bring her fingers closed to a weak fist and back into full extension She could actively fully extend and flex her elbow Skin: No lacerations or abrasions or evidence of open fracture General: No Erythema or evidence of infection. Resolving swelling & ecchymosis Not particularly tender about the elbow, she had some soreness in the soft tissues and a little redness in the skin from scratching today in clinic Radiographs: 3 views of the right wrist were taken and viewed by me today in clinic. They show a distal radius fracture, comminuted, intra-articular, minimally displaced. There is a transverse component to the fracture, and an intra-articular split at the scapholunate interval, with ~5 degrees apex volar angulation. and an ulnar styloid base fracture. Psych Appearance: grossly normal Affect: normal affect Attitude: cooperative Office Procedures AMB Fracture Care Details: Fracture care [id number] distal radius fracture Fracture Billing Code: Fracture Billing Code Assessment & Plan Assessment & Plan (1) Distal radius fracture, right: Code(s): S52.501A - Unspecified fracture of the lower end of right radius, initial encounter for closed fracture Category: Medical (2) Fracture of right ulnar styloid: Code(s): S52.611A - Displaced fracture of right ulna styloid process, initial encounter for closed fracture Category: Medical Plan Assessment & Plan: 1. Right distal radius fracture, comminuted, intra-articular, minimally displaced From a fall, DOI: 12/19/24 2. Right ulnar styloid base fracture From a fall, DOI: 12/19/24 I educated her and her son about this condition I discussed operative and non-operative treatment options I recommend we manage this conservatively, and she is in agreement She was placed in a short arm cast, to be worn for the next 3 weeks I discussed activity modifications, she is to lift nothing heavier than a cellphone for the next 4 weeks She will perform gentle finger ROM exercises at home She will follow up in 3 weeks, with X-rays, 3V R wrist, OOP Scribed for Addie Riley MD by Cliff Ryan, medical officer psychiatry, on 12/26/24 at 11:00 AM, EST. Orders: Orders XR wrist RT min 3V Today M25.531 - Pain in right wrist Coding Level of Care Code New Pt Level 4 (81144) Diagnoses Distal radius fracture, right S52.501A Fracture of right ulnar styloid S52.611A CPT Codes Fracture Care - Fracture Billing Code: Fracture Billing Code ([id number])
--- OUTSIDE RECORDS SUMMARY | 2024-12-26 12:37 | XMS_ITS ---
Author Organization [facility] Address [address] [place] [id number] Care Team Providers Care Railway Signal Electrician Name Role Phone KATHARINA ANGEL Primary Care Provider REASON FOR VISIT Test Strips Refills Medications Medication SIG (Take, Route, Fr equency, Duration) Notes Start Date End Date Status FreeStyle Lite Test - 1 strip once a day Dx: E11.8 for 90 days Active Encounters Encounter Location Date Provider Diagnosis [facility] [address] [phone] 12/13/2024 KATHARINA ANGEL Plan Of Treatment Medication Medication Name Sig Start Date Stop Date Notes FreeStyle Lite Test - 1 strip once a day Dx: E11.8 for 90 days Next Appt Details Provider Name:KATHARINA ANGEL , 06/14/2025 09:45:00 AM, [address] [place] [address], [place], [phone], Progress Notes * Aamdo BOSWELLaDOB: (69 yo F)Acc No.[id number]:12/13/2024 Patient:?ELBERT, Fabianka :1955???Age:69 Y???Sex:Female Address:[facility] [place] [address] * Refills? Refill FreeStyle Lite Test Strip, -, 90, 1 strip once a day Dx: E11.8, 90 days, Refills=11 * true * Date:? Generated for Nelly castro/Abhay/eTransmitting on:?12/26/2024 12:36 PM EST
--- OUTSIDE RECORDS SUMMARY | 2024-12-26 12:37 | XMS_ITS | Encounter Summary ---
Author Organization [facility] Address [address] [place] [address] Care Team Providers Care Supervisor Brake Repair Name Role Phone Vandana Goode SOLAR PHOTOVOLTAIC SYSTEMS ENGINEER Primary Care Provider [phone] Encounter Details Date Type Department Care Team (Late st Contact Info) Description 10/21/2015 Interim Notes [facility] [address] [place] [phone] Kerrie Wooten, COUNSELOR [address] [place] [address] Social History Tobacco Use Types Packs/Day Years Used Date Smoking Tobacco: Never Smokeless Tobacco: Never Alcohol Use Standard Drinks/Week Comments No 0 (1 standard drink = 0.6 oz pur e alcohol) Comments No Sex and Gender Information Value Date Recorded Sex Assigned at Female 08/26/2017 12:11 PM PDT Legal Sex Female 10:04 AM PDT Gender Identity Female 08/26/2017 12:11 PM PDT Sexual Orientation Straight 08/26/2017 12 :11 PM PDT documented as of this encounter Plan of Treatment Not on file documented as of this encounter Visit Diagnoses Not on filedocumented in this encounter Additional Health Concerns Assessment Noted Time PHQ-9 Depression Total Score: 20 015 9:00 AM PST documented as of this encounter Care Teams Supervisor Brake Repair Relationship Specialty Start Date End Date Vandana Goode NP [address] [place] [address] PCP - General Family Medicine, SOLAR PHOTOVOLTAIC SYSTEMS ENGINEER 08/28/24 documented as of this encounter
--- OUTSIDE RECORDS SUMMARY | 2024-12-26 12:37 | XMS_ITS | Clinical Summary ---
Author Organization [facility] Address [address] [place] [address] Care Team Providers Care Fast Food Shift Supervisor Name Role Phone Vandana Goode NP Primary Care Provider [phone] Source Comments PLEASE NOTE, if this patient is a minor, it may be UNLAWFUL to discuss sensitive information that is contained in these records (such as FAMILY PLANNING, MENTAL HEALTH or SUBSTANCE ABUSE) with the minor patient's parent or other person without the patient's specific authorization.[facility] Allergies Active Allergy Reactions Criticality Noted Date Comments Perfumes Cough 09/04/2015 Medications blood pressure monitorIndicatio ns:Essential hypertension Uncontrolled blood pressure - 1 Kit 1 07/22/20 15 Active compression stockingIndicati ons:Lower leg edema Use daily. Dx: lower leg edema. 15-20 mm hg, 2 pairs 2 Each 0 02/17/20 17 Active Miscellaneous Medical Supply miscIndications: Lower leg edema by miscellaneous route once daily Knee high compression stockings Large, 2 pairs. 15-20 mm hg 2 Each 0 02/17/20 17 Active alcohol swabs Blood sugar check daily and prn 100 Each 11 04/29/20 17 Active diclofenac sodium (VOLTAREN) 1 % gelIndications:C hronic bilateral low back pain with right-sided sciatica Apply 4 g right lower back tid 100 g 2 01/25/20 18 Active blood sugar diagnostic (FREESTYLE LITE STRIPS) stripsIndication s:Type 2 diabetes mellitus without complication, without long-term current use of insulin ([facility]) 1 Strip as needed for high blood sugar Dx.: E11.9 Use tid as directed for dm 100 Each 11 09/19/20 18 Active blood-glucose meter (FREESTYLE LITE METER) monitoring kitIndications:T ype 2 diabetes mellitus without complication, without long-term current use of insulin ([facility]) as needed for blood glucose monitoring 1 Each 09/19/20 18 Active lancetsIndicatio ns:Type 2 diabetes mellitus without complication, without long-term current use of insulin ([facility]) Freestyle lite lancets Dx.: E11.9 Use tid as directed for dm 100 Each 11 09/19/20 18 Active melatonin 3 mg tabletIndication s:Transient insomnia Take 1 Tab by mouth nightly at bedtime as needed for sleep 30 Tab 5 12/07/19 Active acetaminophen (TYLENOL 8 HOUR) 650 mg CR tabletIndication s:Chronic bilateral low back pain with right-sided sciatica Take 1 Tab by mouth 2 (two) times daily 60 Tab 1 08/01/20 Active miscellaneous medical supply miscIndications: Dizziness,Limite d mobility,At risk for falls,Chronic bilateral low back pain with right-sided sciatica by miscellaneous route once daily TRANSFER BENCH. Dx: M54.41, Z91.81, Z74.09, R42. 1 Each 11/02/19 Active miscellaneous medical supply miscIndications: Urinary incontinence, unspecified type,Dizziness,L imited mobility,At risk for falls,Chronic bilateral low back pain with right-sided sciatica by miscellaneous route once daily COMMODE. Dx: M54.41, Z91.81, Z74.09, R42, R32. 1 Each 11/02/19 Active norethindrone acetate (AYGESTIN) 5 mg tablet TAKE 2 TABLETS BY MOUTH ONCE PER DAY UNTIL BLEEDING STOPS THEN ONE TABLET DAILY. 04/12/20 Active omeprazole (PRILOSEC) [address] capsule Take 1 Cap by mouth every morning before breakfast Do not crush or chew. 90 Cap 04/25/20 Active compress.stockin g,knee,reg,medIn dications:Bilate ral leg edema 2 PAIRS COMPRESSION STOCKINGS. 25-30 mmHg Wear daily. Dx: R60.0 Wt: 192 lb, height: 5' 4 2 Each 04/25/20 Active clotrimazole (LOTRIMIN) 1 % creamIndications :Tinea cruris APPLY TO AFFECTED AREA TWICE A DAY 45 g 2 12/02/19 [address] tabletIndication s:Type 2 diabetes mellitus without complication, without long-term current use of insulin ([facility]),Essent ial hypertension TAKE 1 TABLET BY MOUTH EVERY DAY 30 Tablet 11 12/02/19 21 Active DULoxetine (CYMBALTA) [address] capsuleIndicatio ns:Current severe episode of major depressive disorder without psychotic features without prior episode ([facility]) Take 1 Capsule by mouth once daily 90 Capsule 02/28/20 21 Active metoprolol tartrate (LOPRESSOR) 50 mg tabletIndication s:Essential hypertension TAKE 1 TABLET BY MOUTH 2 (TWO) TIMES DAILY 180 Tablet 07/14/20 21 Active hydroCHLOROthiaz lona (HYDRODIURIL) 25 mg tabletIndication s:Essential hypertension TAKE 1 TABLET BY MOUTH EVERY DAY 90 Tablet 10/13/20 21 Active TRADJENTA 5 mg tabIndications:T ype 2 diabetes mellitus without complication, without long-term current use of insulin ([facility]) TAKE 1 TABLET BY MOUTH ONCE DAILY APPT WITH PCP REQUIRED FOR FURTHER REFILLS. 30 Tablet 1 03/02/20 22 Active atorvastatin (LIPITOR) 20 mg tabletIndication s:Essential hypertension,Mix ed dyslipidemia TAKE 1 TABLET BY MOUTH ONCE DAILY FURTHER REFILLS REQUIRES APPT WITH PCP 90 Tablet 05/15/20 22 Active lisinopriL 40 mg tabletIndication s:Essential hypertension TAKE 1 TABLET BY MOUTH ONCE DAILY FURTHER REFILLS REQUIRES APPT WITH PCP 90 Tablet 05/15/20 22 Active amLODIPine (NORVASC) 10 mg tabletIndication s:Essential hypertension TAKE 1 TABLET BY MOUTH ONCE DAILY FURTHER REFILLS REQUIRES APPT WITH PCP 90 Tablet 08/14/20 22 Active glimepiride (AMARYL) 4 mg tabletIndication s:Type 2 diabetes mellitus without complication, without long-term current use of insulin ([facility]) TAKE 1 TABLET BY MOUTH ONCE DAILY WITH BREAKFAST 30 Tablet 2 10/12/20 22 Active Active Problems Problem Noted Date Diagnosed Date Class 1 obesity due to exces s calories with serious comorbidity and body mass index (BMI) of 31.0 to 31.9 in adult 03/25/2021 Current severe episode of ma alis depressive disorder without psychotic features without prior episode ([facility]) 02/27/2021 Endometrial polyp 08/20/2020 Overview (08/20/2020): 07/22/[address] Bolton Post-menopausal bleeding 08/24/2019 Overview (08/24/2019): 08/19/19 - seen at [facility] ED c/o vaginal bleeding. Pelvis U/S: IMPRESSION: 1. Thickened endometrial lining with the differential including polyps, hyperplasia, or carcinoma. Biopsy is recommended.2. Complex solid and cystic mass within the uterine fundus that somewhat displaces the adjacent endometrium, which may represent a degenerating fibroid or an extension of the endometrial process. Further management should be determined by endometrial biopsy, however MRI with and without contrast may provide additional information.3. Heterogeneous appearance of the uterine myometrium, with the differential including adenomyosis or small fibroids. CKD (chronic kidney disease) stage 3, GFR 30-59 ml/min ([facility]) 01/16/2018 Overview (11/06/2024): 11/06/24 f/u Dr Taqueria Mi: RAASi Follow kidney function and electrolytes UPCR iPTH and vitamin d Low sodium diet Avoid NSAID Return in 6 months (on 05/06/2025). 12/02/21 F/u Dr Ureña. PLAN: Will benefit from SGLT2i Can stop glimepiride F/u 6 months 11/22/18 - Seen NEPHRO Dr. Ureña: Ca+ phosphorus, and intact PTH all at goal, c/w Lisinopril F/U 6 mos 10/18/18 - Renal U/S: IMPRESSION: 1. Unremarkable appearance of the right kidney. 2. Left upper pole mild to moderate caliectasis with no evidence of obstructing stone or mass. No dilatation of the renal pelvis is demonstrated. Clinical correlation is recommended and further assessment with abdominal CT if deemed necessary. Component Latest Ref Rng & Units 01/14/2018 07/26/2017 12/30/2016 BUN 5 - 25 mg/dL 25 41 (H) 24 CREATININE 0.5 - 1.1 mg/dL 1.06 1.51 (H) 0.90 EGFR 53 35 > 60 Component Latest Ref Rng & Units 2016 05/06/2016 09/05/2015 BUN 5 - 25 mg/dL 23 27 (H) 17 CREATININE 0.5 - 1.1 mg/dL 0.97 1.06 0.72 EGFR 58 53 > 60 Component Latest Ref Rng & Units 05/01/2015 BUN 5 - 25 mg/dL 14 CREATININE 0.5 - 1.1 mg/dL 0.76 EGFR > 60 Near syncope episode 12/21/17 01/11/2018 Overview (01/11/2018): 12/21-12/22/17 - [facility] for episode of syncope/ unreponsivenss following an emotional conversation with son who is in [place]. She had NIH score of 3 initially for being nonverbal but otherwise normal. CT and CTA h/n of head neg, tele monitoring without any cardiac arrthymias. Discharged next day. Outpatient ECHO and Holter monitor recommended Pap smear of cervix declined 12/30/2016 Colonoscopy refused 12/30/2016 Non-Indian speaking patient 10/13/2016 Non compliance with medical treatment 10/13/2016 Overview (10/13/2016): Poor medication compliance due to depression Obesity (BMI 30.0-34.9) 05/06/2016 Umbilical hernia without obstruction and without gangrene 12/19/2015 Overview (05/06/2016): Small fat containing periumbilical hernia 2.3 x 1.8 cm - retroperitoneal lipoma On the left involving left renal pelvis ,left upper lobe caliectasis . Chronic bilateral low back pain with right-sided sciatica 09/10/2015 Overview (12/14/2015): Seen by [facility] for lumbar degenerative disease.vinnie robles/rosey -xray- mild lumbar spine degenerative disease-11/30/15, 11/21/15- no acute findings - degenerative disc disease at L4/5 and L5/s1 level. Left elbow pain 09/10/2015 Bilateral neck pain 09/10/2015 Overview (11/24/2015): Degenerative disc disease at c4/5, c5/6,c6/7 levels. Moderate bone narrowing at rt c3-4 foramen. 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 On meloxicam,tramadol. Transient insomnia 09/04/2015 Gastritis 09/04/2015 Mixed dyslipidemia 05/06/2015 Overview (11/07/2015): ldl-84 Post traumatic stress disorder (PTSD) 05/06/2015 Anxiety and depression 05/06/2015 Overview (12/19/2015): Severe- . HTN (hypertension) 06/01/2013 Vision decreased 06/01/2013 Type 2 diabetes mellitus wit hout complication, without long-term current use of insulin ([facility]) 06/01/2013 Resolved Problems Problem Noted Date Diagnosed Date Resolved Date Intractable vomiting with nausea 10/15/2015 03/07/2016 Overview (12/07/2015): 11/30/15- u/s of gall bladder- fatty liver. - no cholelithiasis or Cholecystitis. Neck pain 09/04/2015 10/22/2015 Musculoskeletal chest pain 09/04/2015 0 07/07/2018 Immunizations Name Administration Dates Next Due Flu, Multi Dose 0.5 ML 07/09/2015 Flu, Preservative Free 08/26/2017 INFLUENZA, SEASONAL, INJECTABLE 12/19/2015 Moderna COVID-19 Vaccine, re d cap blue label, 12+ Primary Series 01/25/2021,12/28/2020 PNEUMOCOCCAL CONJUGATE PCV 13 12/30/2016 PNEUMOCOCCAL POLYSACCHARIDE PPV23 06/01/2013 PPD 12/30/2016,08/23/2015 TDAP 06/01/2013 Td (adult), 5 Lf tetanus toxoid, preservative fr ee 12/19/2015 Family History Medical History Relation Name Comments Heart Problems Brother 2 heart attack Stroke Brother 3 of stroke Cancer Brother 4 Diabetes Father Hypertension Mother Diabetes Sister 2 2 sisters with diabetes Relation Name Status Comments Brother 1 Brother 2 Brother 3 Brother 4 Father Mother Sister 1 Sister 2 Social History Tobacco Use Types Packs/Day Years Used Date Smoking Tobacco: Never Smokeless Tobacco: Never Tobacco Cessation:Counseling Given: Not Answered Alcohol Use Standard Drinks/Week Comments No 0 (1 standard drink = 0.6 oz pur e alcohol) Social Connections Answer Date Recorded Connectedness 0 07/28/2024 Financial Resource Strain Answer Date R ecorded Financial Resource Strain 0 2018 Stress Answer Date Recorded Stress 0 06/20/2019 Physical Activity Answer Date Recorded Physical Activity 0 06/20/2019 Food Insecurity Answer Date Recorded Food 0 07/27/2024 Transportation Needs Answer Date Record ed Transportation 0 06/20/2019 Housing Stability Answer Date Recorded Housing 0 06/20/2019 Safety and Environment Answer Date Spike rded Safety 0 06/20/2019 Utilities Answer Date Recorded Utilities 0 06/20/2019 Employment Answer Date Recorded Stress 0 07/28/2024 Comments No Sex and Gender Information Value Date Recorded Sex Assigned at Female 08/26/2017 12:11 PM PDT Legal Sex Female 10:04 AM PDT Gender Identity Female 08/26/2017 12:11 PM PDT Sexual Orientation Straight 08/26/2017 12 :11 PM PDT Occupation Industry Job Start Date Job End Date unemployed Not on file Not on file Not on file Last Filed Vital Signs Vital Sign Reading Time Taken Comments Blood Pressure 113/76 06/17/2024 10:28 AM EDT Pulse 65 06/17/2024 10:28 AM EDT Temperature 36.3 ??C (97.3 ??F) 06/17/2024 10:28 AM E DT Respiratory Rate 16 06/17/2024 10:28 AM EDT Oxygen Saturation 99% 02/27/2021 9:01 AM EDT Inhaled Oxygen Concentration - - Weight 77.1 kg (170 lb) 06/17/2024 10:28 AM EDT Height 162.6 cm (5' 4 ) 02/27/2021 9:01 AM EDT Body Mass Index 29.18 02/27/2021 9:01 AM EDT Plan of Treatment Health Maintenance Due Date Last Done Comments Dental Examination 1955 Diabetes Foot Exam 1955 CT Colonography 2000 Colonoscopy 2000 Colorectal Cancer Screening 2000 FIT/gFOBT 2000 Fecal DNA 2000 Flexible Sigmoidoscopy 2000 Imm-Zoster, Recombinant (1 of 2) 2005 Retinopathy Screening 07/21/2019 07/21/2018 Breast Cancer Screening (Mammogram) 06/23/2020 06/23/2019, 06/19/2019, 08/16/2017 (Managed by Outside Provider), Additional history exists Bone Density Screening 2020 Falls Prevention 2020 Depression Monitoring 05/29/2021 02/27/2021 , 01/17/2018, 12/19/2015, Additional history exists Imm-Pneumococcal 65+ (3 of 3 - PCV20 or PCV21) 12/30/2021 12/30/2016, 06/01/2013 Diabetes Microalbumin (w/Creatinine) 01/14/2022 01/14/2021, 12/07/2018, 05/01/2015 Lipid Screening 01/14/2022 01/14/2021, 12/30, 12/30/2016, Additional history exists Serum Creatinine 01/14/2022 01/14/2021, , 08/01/2019, Additional history exists Medicare Annual Wellness Visit 02/27/2022 0 02/27/2021, 12/07/2018, 12/30/2016, Additional history exists Diabetes HbA1c 12/03/2022 06/02/2022, 08/0 12/2021, 12/15/2021, Additional history exists [id number] ( season) 2024 021, 12/28/2020 Imm-Influenza (#1) 2024 08/26/2017, 0 12/19/2015, 07/09/2015 Alcohol and Drug Screen 11/01/2024 02/28/20 21, 12/07/2018, 07/07/2018, Additional history exists Tobacco Screening 06/17/2025 06/17/2024 Imm-DTaP/Tdap/Td (4 - Td or Tdap) 09/17/2032 09/17/2022, 12/19/2015, 06/01/2013 Hepatitis B Screening Completed 01/14/2018 Hepatitis C Screening Completed 01/14/2018 Procedures Procedure Name Priority Date/Time Associated Diagnosis Comments COMPREHENSIVE METABOLIC PANEL Routine 01/14/2021 12:00 PM EDT Type 2 diabetes mellitus without complication, without long-term current use of insulin ([facility]) LIPID PANEL Routine 01/14/2021 12:00 PM EDT Type 2 diabetes mellitus without complication, without long-term current use of insulin ([facility]) HEMOGLOBIN GLYCOSYLATED A1C Routine 01/14/2021 12:00 PM EDT Type 2 diabetes mellitus without complication, without long-term current use of insulin ([facility]) MICROALBUMIN/CREATININ E RATIO, URINE, RANDOM Routine 01/14/2021 11:54 AM EDT Type 2 diabetes mellitus without complication, without long-term current use of insulin ([facility]) MAMMOGRAM, ABSTRACTED DISCRETE Routine 06/23/2019 8:55 AM EDT DILATED RETINAL EXAM W/EVIDENCE OF RETINOPATHY Routine 07/21/2018 8:36 AM EDT HEPATITIS A,B,C PANEL Routine 01/14/2018 10:53 AM EDT Encounter to establish care from Last 3 Months or Most Recently Relevant to Health Maintenance Results * (ABNORMAL) HEMOGLOBIN, GLYCOSYLATED (A1C) (01/14/2021 12:00 PM EDT) GLYCATED HEMOGLOBIN A1C 8.4(H) <6.5 % [facility] ESTIM[facility] AVERAGE GLUCOSE 194 mg/dL [facility] Blood Blood / Unknown 01/14/2021 1 2:00 PM EDT 01/14/2021 4:23 PM EDT [facility] - 01/14/2021 8:07 PM EDT [employer], [place] [address] Driver Wheelchair - Leandra Anderson MD PT ID [id number] ORD# [id number] Melissa Reyes [facility] - BLOOD DRAW Final Re sult Performing Organization Address City/[facility]/ZIP Co de Phone Number [address] [address], [place] [phone] * (ABNORMAL) LIPID PANEL (01/14/2021 12:00 PM EDT) CHOLESTEROL 168 0 - 200 mg/dL [facility] TRIGLYCERIDES 198(H) 0 - 150 mg/dL [facility] HDL CHOLESTEROL 62 >40 mg/dL [facility] LDL CALCULATED 67 0 - 100 mg/dL [facility] TC-HDLC RATIO 2.7 0 - 4.4 mg/dL [facility] Blood Blood / Unknown 01/14/2021 1 2:00 PM EDT 01/14/2021 4:23 PM EDT Narrative [facility] - 01/14/2021 5:10 PM EDT [facility] [employer], [place] [address] Driver Wheelchair - Leandra Anderson MD PT ID [id number] ORD# [id number] Melissa Reyes [facility] - BLOOD DRAW Final Re sult Performing Organization Address [facility]/ZIP Co de Phone Number [address] [address], * (ABNORMAL) COMPRE METAB PANEL (01/14/2021 12:00 PM EDT) GLUCOSE 260(H) 70 - 100 mg/dL [facility] Comment:Reference range appl icable to fasting specimens only BUN 54(H) 5 - 25 mg/dL [facility] CREAT 1.49(H) 0.5 - 1.1 mg/dL [facility] GLOMERULAR FILTRATION RATE 35 [facility] Comment: If patient is -Malian, multiply result by 1.21 Chronic Kidney Disease: < 60 ml/min/1.73 square meters Kidney Failure: < 15 ml/min/1.73 square meters SODIUM 137 135 - 145 mEq/L [facility] POTASSIUM 4.1 3.5 - 5.5 mmol/L [facility] CHLORIDE 104 96 - 110 mmol/L [facility] CO2 24 21 - 32 mmol/L [facility] ANION GAP 9 3 - 11 [facility] CALCIUM 10.0 8.5 - 10.5 mg/dL [facility] TOTAL PROTEIN 7.6 6.0 - 8.0 G/dL [facility] ALBUMIN 4.0 3.2 - 5.0 G/dL [facility] BILI, TOTAL 0.5 0.0 - 1.4 mg/dL [facility] SGOT 12 10 - 42 U/L [facility] SGPT 28 10 - 60 U/L [facility] ALK PHOS 137(H) 42 - 121 U/L [facility] Blood Blood / Unknown 01/14/2021 1 2:00 PM EDT 01/14/2021 4:23 PM EDT Narrative [facility] - 01/14/2021 5:10 PM EDT [facility], [place] [address] Driver Wheelchair - Leandra Anderson MD PT ID [id number] ORD# [id number] Melissa Reyes EDUCATION COORDINATOR LAB - BLOOD DRAW [place] [address], * MICROALBUMIN/CREATININE RATIO, URINE, RANDOM (01/14/2021 11:54 AM EDT) CREATININE, RANDOM URINE 113 mg/dL [facility] MICROALBUMIN, RANDOM 15.7 0.0 - 29.0 mg/L [facility] MICROALB/CRE RATIO RANDOM 13.8 0.0 - 30.0 mg/G [facility] Urine Urine specimen / Unknown 01/14/2021 11:54 AM EDT 01/14/2021 4:23 PM EDT Narrative [facility] - 01/14/2021 5:24 PM EDT [facility] [employer], a member of [address] [address] Driver Wheelchair - Leandra Anderson MD PT ID [id number] ORD# [id number] Melissa Reyes EDUCATION COORDINATOR LAB - NO BLOOD DRAW Edite d Result - Final [address] [address], * MAMMOGRAM, ABSTRACTED (06/23/2019 8:55 AM EDT) MAMMOGRAM NEGATIVE NEGATIVE Anatomical Region Laterality Modality Other Impressions 06/23/2019 8:55 AM EDT No mammogramic evidence of malignancy BIRADS - 1 negative repeat 1 year Provider [facility] Final Result * DILATED RETINAL EYE EXAM WITH INTERPRETATION BY AN MEDICAL EDITOR OR CEMETERY MANAGER DOCUMENTED AND REVIEWED (DM)4 (07/21/2018 8:36 AM EDT) Impressions Danielle Neumann MA - 07/21/2018 8:36 AM EDT DM diabetes with mild, non-proliferative diabetic retinopathy noted- both eyes Repeat 1 year Provider [facility] OTHER Final Result * (ABNORMAL) HEPATITIS A,B,C PANEL (01/14/2018 10:53 AM EDT) HEPATITIS B SURFACE ANTIBODY NEGATIVE NEGATIVE [facility] HEPATITIS B SURFACE ANTIGEN NEGATIVE NEGATIVE [facility] Comment: Over the counter supplements containing high doses of biotin may interfere with this assay. ??If interference is suspected, patients shoud be retested after refraining from biotin supplements for 72 hours. HEPATITIS C VIRUS DIAGNOSTIC NEGATIVE NEGATIVE [facility] HEPATITIS A ANTIBODY TOTAL POSITIVE(A) NEGATIVE [facility] Comment: Over the counter supplements containing high doses of biotin may interfere with this assay. ??If interference is suspected, patients shoud be retested after refraining from biotin supplements for 72 hours. HEPATITIS B CORE ANTIBODY NEGATIVE NEGATIVE [facility] Blood specimen (specimen) Blood / Unknown 01/14/2018 10:53 AM EDT 01/14/2018 10:56 AM EDT Narrative [facility] - 01/14/2018 12:46 PM EDT [facility] [employer] [address] [place] [address] PT ID [id number] ORD# [id number] us Sujey Alfaro PA-C LAB - BLOOD DRAW Edited R esult - Final [facility] [address] [place] [address], from Last 3 Months or Most Recently Relevant to Health Maintenance Insurance [facility] MEDICAID MEDICARE - [place] Care Teams Fast Food Shift Supervisor Relationship Specialty Start Date End Date Vandana Goode NP [address] [place] [id number] PCP - General Family Medicine, SET UP OPERATOR TOOL 08/28/24
--- OUTSIDE RECORDS SUMMARY | 2024-12-26 12:37 | XMS_ITS ---
Author Organization [facility] Address [address] [place] [id number] Care Team Providers Care Gluer Name Role Phone KATHARINA ANGEL Primary Care Provider REASON FOR VISIT referral to Dr. Moy Encounters Encounter Location Date Provider Diagnosis [facility] [address] [address] 12/22/2024 KATHARINA ANGEL Plan Of Treatment Next Appt Details Provider Name:KATHARINA ANGEL , 06/14/2025 09:45:00 AM, [address] [place] [address] [address], [place], [id number], Progress Notes * Ailyn BOSWELL: (69 yo F)Acc No.[id number]:12/22/2024 Patient:?Ben BOSWELL :1955???Age:69 Y???Sex:Female Address:[address], [place] [address] * * Date:?
--- OUTSIDE RECORDS SUMMARY | 2024-12-26 12:37 | XMS_ITS | Patient Health Record ---
Author Organization [facility] Address [address] [place] [address] Care Team Providers Care Ski Base Trimmer Name Role Phone KATHARINA ANGEL Primary Care Provider [phone] Allergies No Known Allergies Results Component Value Reference Range Notes Lipid Panel-[id number] Reviewed date:12/13/2024 07:45:56 AM Interpretation: Performing Lab:[facility], [address] [facility], Phone - [phone], Director - MDJodry Notes/Report: Cholesterol, Total 157 100-199 mg/dL Triglycerides 165 0-149 mg/dL HDL Cholesterol 57 >39 mg/dL VLDL Cholesterol Deric 28 5-40 mg/dL LDL Chol Calc (NIH) 72 0-99 mg/dL Comp. Metabolic Panel ([id number] Reviewed date:12/13/2024 07:46:01 AM Interpretation: Performing Lab:[facility], [address] [facility], Phone - [phone], Director - MDJodry Notes/Report: Glucose 189 70-99 mg/dL BUN 35 8-27 mg/dL Creatinine 1.52 0.57-1.00 mg/dL eGFR 37 >59 mL/min/1.73 BUN/Creatinine Ratio 23 12-28 Sodium 140 134-144 mmol/L Potassium 5.1 3.5-5.2 mmol/L Chloride 104 96-106 mmol/L Carbon Dioxide, Total 21 20-29 mmol/L Calcium 9.9 8.7-10.3 mg/dL Protein, Total 7.1 6.0-8.5 g/dL Albumin 4.3 3.9-4.9 g/dL Globulin, Total 2.8 1.5-4.5 g/dL Bilirubin, Total 0.4 0.0-1.2 mg/dL Alkaline Phosphatase 128 44-121 IU/L AST (SGOT) 17 0-40 IU/L ALT (SGPT) 19 0-32 IU/L Albumin/Creatinine Ratio,Uri [id number] Reviewed date:12/13/2024 07:46:09 AM Interpretation: Performing Lab:[facility] [place], [address] [facility], [place], Phone - [phone], Director - MDJodry Notes/Report: Creatinine, Urine 113.6 Not Estab. mg/dL Albumin, Urine 218.3 Not Estab. ug/mL Alb/Creat Ratio 192 0-29 mg/g creat Normal: 0 - 29 Moderately increased: 30 - 300 Severely increased: >300 Hemoglobin [id number] Reviewed date:12/13/2024 07:46:17 AM Interpretation: Performing Lab:[facility] [place], [address] [facility], [place], Phone - [phone], Director - MDJodry Notes/Report: Hemoglobin A1c 8.0 4.8-5.6 % . Prediabetes: 5.7 - 6.4 Diabetes: >6.4 Glycemic control for adults with diabetes: <7.0 Reason For Referral Reason bleeding issues Diagnosis 1 Abnormal uterine and vaginal bleeding, unspecified (N93.9) Referral Organization [facility] Referring Provider First Name [facility] Referring Provider Last Name [facility] Referring Provider [facility] Referred Provider Specialty OB - Gynecol ogy General Notes Please contact the p atient for scheduling Referral Priority Routine Reason EUN- Dr Moy Diagnosis 1 Anxiety disorder, un specified (F41.9) Referral Organization [facility] Referring Provider First Name [facility] Referring Provider Last Name [facility] Referring Provider Speciality Internal [facility] Referred Provider Specialty Psychiatry General Notes Referral faxed to Dr Moy Psychiatry . Please call patient to schedule.Pedro Christy 12/22/2024 03:08:17 PM > Referral Priority Routine Medications Medication SIG (Take, Route, Frequency, Duration) Notes Start Date End Date Status Lantus SoloStar 100 UNIT/ML 10 units Subcutaneous once a day for 30 days 12/13/2024 Active FreeStyle Lite Test - 1 strip once a day Dx: E11.8 for 90 days Active Clotrimazole 1 % 1 application Externally Twice a day for 14 days 12/13/2023 Not-Taking Trulicity 3 MG/0.5ML as directed pre filled suryng Subcutaneous once a week for 90 days 07/18/2021 Active amLODIPine Besylate 5 MG 1 tablet Orally Once a day for 90 days Active Aspirin 81 MG 1 tablet Orally Once a day Active Ezetimibe 10 MG 1 tablet Orally Once a day for 90 days Active Metoprolol Tartrate 50 MG 1 tablet with food Orally Twice a day for 30 days Active Diclofenac Sodium 1 % as directed Externally daily for 30 days Active hydroCHLOROthiazide 25 MG 1 tablet in th e morning Orally Once a day for 30 days Active Tradjenta 5 MG TAKE 1 TABLET BY MOUTH EVERY DAY for 90 Active Vitamin D (Ergocalciferol) 1.25 MG (03653 UT) TAKE 1 CAPSULE BY MOUTH ONE TIME PER WEEK for 28 Active Sertraline HCl 100 MG TAKE 1 TABLET BY MOUTH EVERY DAY FOR 30 DAYS for 30 Active tiZANidine HCl 2 MG 1 tablet as needed Orally Three times a day for 10 days 12/10/2022 Active Vitamin D3 25 MCG (1000 UT) TAKE 1 TABLE T BY MOUTH EVERY DAY FOR 90 DAYS for 90 Active Fluticasone Propionate 50 MCG/ACT USE 1 SPRAY INTO EACH NOSTRIL EVERY DAY FOR 30 DAYS for 60 Active Atorvastatin Calcium 20 MG TAKE 1 TABLET BY MOUTH EVERY DAY FOR 30 DAYS for 90 Active Lisinopril 40 MG TAKE 1 TABLET BY MOUTH EVERY DAY FOR 30 DAYS for 90 Active Sertraline HCl 25 MG TAKE 1 TABLET BY MOUTH EVERY DAY for 30 Active Immunizations Vaccine Route Administration Date Status Comme nts COVID Moderna Unknown 12/28/2020 Administered COVID Moderna Unknown 01/25/2021 Administered Pneumococcal conjugate PCV 13 Unknown 12/30/2016 Admini stered Pneumococcal polysaccharide PPV23 Unknown 06/01/2013 Ad ministered Td (adult) preservative free Unknown 12/19/2015 Adminis tered Tdap Unknown 09/17/2022 Administered TDAP Unknown 06/01/2013 Administered Social History Tobacco Use: Social History Observation Description Date Details (start date - stop date) Never Smoker NA - NA Tobacco Use/Smoking Question Answer Notes Are you a nonsmoker Alcohol Screen (Audit-C) Question Answer Notes Did you have a drink containing alcohol in the p ast year? No Points 0 Interpretation Negative Section Notes: non-smoker Not drink alcohol Problems Problem Type SNOMED Code ICD Code Onset Dates Problem Status W/U Status Risk Notes Problem Disorder due to type 2 diabetes mellitus (506807148) Type 2 diabetes mellitus with unspecified complications (E11.8) Active confirmed Problem Vitamin D deficiency (92308636) Vitamin D deficiency, unspecified (E55.9) Active confirmed Problem Obesity due to excess calories (828480424) Other obesity due to excess calories (E66.09) Active confirmed Problem Mixed hyperlipidemia (705254057) Mixed hyperlipidemia (E78.2) Active confirmed Problem Mild recurrent major depression (45535861) Major depressive disorder, recurrent, mild (F33.0) Active confirmed Problem Anxiety disorder (526642215) Anxiety disorder, unspecified (F41.9) Active confirmed Problem Essential hypertension (53221029) Essential (primary) hypertension (I10) Active confirmed Problem Constipation (44973853) Constipation, unspecified (K59.00) Active confirmed Problem Polyarthritis (016169914) 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) Active confirmed Problem Degeneration of thoracolumbar intervertebral disc (84613736) Other intervertebral disc degeneration, 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) Active confirmed Problem Age-related osteoporosis (266143533) Age-related osteoporosis without current pathological fracture (M81.0) Active confirmed Problem Chronic kidney disease stage 3 (disorder) (536268980) Chronic kidney disease, stage 3 (moderate) (N18.3) Active confirmed Problem Abnormal uterine bleeding (75719173710812) Abnormal uterine and vaginal bleeding, unspecified (N93.9) Active confirmed Problem Abnormal gait (45204587) Other abnormalities of gait and mobility (R26.89) Active confirmed Problem Chronic kidney disease stage 3B (disorder) (465338954) Chronic kidney disease, stage 3b (N18.32) Active confirmed Problem History of disease caused by Severe acute respiratory syndrome coronavirus 2 (situation) (5426829161485034 05) Personal history of COVID-19 (Z86.16) Active confirmed Problem Anxiety state (863671341) Anxiety state, unspecified (F41.1) Active confirmed Problem Abnormal gait (16409072) Gait instability (R26.81) Active confirmed Vital Signs Heart Rate 80 /min 12/13/2024 Temperature 97.3 degrees Fahrenheit 12/13/2024 Oximetry 98 % 12/13/2024 Blood pressure diastolic 80 mm Hg 12/13/2024 Height 61 in 12/13/2024 Blood pressure systolic 130 mm Hg 12/13/2024 Weight 175.2 lbs 12/13/2024 BMI 33.1 kg/m2 12/13/2024 Encounters Encounter Location Date Provider Diagnosis [address] [place] [address] 02/23/2024 KATHARINA ANGEL Type 2 diabetes bo itus with unspecified complications E11.8 ; Abnormal uterine and vaginal bleeding, unspecified N93.9 ; Essential (primary) hypertension I10 and Chronic kidney disease, stage 3 (moderate) N18.[address] [place] [address] 06/12/2024 KATHARINA ANGEL Type 2 diabetes bo itus with unspecified complications E11.8 ; Essential (primary) hypertension I10 ; Mixed hyperlipidemia E78.2 and Chronic kidney disease, stage 3 (moderate) N18.[address] [place] [address] 12/13/2024 KATHARINA ANGEL Encounter for genera l adult medical examination without abnormal findings Z00.00 ; Type 2 diabetes mellitus with unspecified complications E11.8 ; Essential (primary) hypertension I10 ; Mixed hyperlipidemia E78.2 ; Chronic kidney disease, stage 3b N18.32 ; Age-related osteoporosis without current pathological fracture M81.0 ; Other obesity due to excess calories E66.09 and Dietary counseling and surveillance Z71.[address] [place] [address] 12/22/[address] [place] [address] 04/25/[address] [place] [address] 06/13/[address] [place] [address] 12/13/2024 KATHARINA ANGEL Assessments Encounter Date Diagnosis (ICD Code) Assessment Notes Treatment Notes Treatment Clinical Notes Section Notes 02/23/2024 Type 2 diabetes mellitus with unspecified complications (ICD-10 - E11.8) Mrs. Boswell is a 68-year-old lady with hypertension, hyperlipidemia, CKD stage 3, diabetes mellitus type 2, anxiety/depression and polyosteoarthritis and she follows up with [facility] here complaining of heavy bleeding which has been going on for a week now and it is painful. Plan is as follows: AUB. Discussed she may need to have transvaginal ultrasound done. Referred to OBGYN. Blood work ordered to check for CBC. Type II diabetes mellitus. She checks his blood sugar at home and denies hypoglycemic and hyperglycemic episodes. She is on right medications. She has seen her glueline worker in the past 1 year. Foot care discussed. Check A1c. Hypertension with kidney disease. Blood pressure well controlled on current regimen. Advised appropriate hydration. Check basic panel. Chronic kidney disease stage 3. She does not appear to be in volume overload. Advised appropriate hydration. Avoid NSAIDs.She follows up with base ply hand General health concerns discussed with patient. Scribe services used to formulate this note under HIPAA compliance and under [place] law mandated for scribe services. Patient aware of service. Verbal consent and written consent taken from the patient. Patient understands and verbalizes understanding of the scribes services and all questions answered regarding scribes services. Patient agrees to use of scribes services. 02/23/2024 Abnormal uterine and vaginal bleeding, unspecified (ICD-10 - N93.9) Mrs. Boswell is a 68-year-old lady with hypertension, hyperlipidemia, CKD stage 3, diabetes mellitus type 2, anxiety/depression and polyosteoarthritis and she follows up with [facility] here complaining of heavy bleeding which has been going on for a week now and it is painful. Plan is as follows: AUB. Discussed she may need to have transvaginal ultrasound done. Referred to OBGYN. Blood work ordered to check for CBC. Type II diabetes mellitus. She checks his blood sugar at home and denies hypoglycemic and hyperglycemic episodes. She is on right medications. She has seen her glueline worker in the past 1 year. Foot care discussed. Check A1c. Hypertension with kidney disease. Blood pressure well controlled on current regimen. Advised appropriate hydration. Check basic panel. Chronic kidney disease stage 3. She does not appear to be in volume overload. Advised appropriate hydration. Avoid NSAIDs.She follows up with base ply hand General health concerns discussed with patient. Scribe services used to formulate this note under HIPAA compliance and under [place] law mandated for scribe services. Patient aware of service. Verbal consent and written consent taken from the patient. Patient understands and verbalizes understanding of the scribes services and all questions answered regarding scribes services. Patient agrees to use of scribes services. 06/12/2024 Type 2 diabetes mellitus with unspecified complications (ICD-10 - E11.8) Mrs. Boswell is a 68-year-old lady with hypertension, hyperlipidemia, CKD stage 3, diabetes mellitus type 2, anxiety/depression and polyosteoarthritis and she follows up with [facility] here for follow up. Plan is as follows: Type II diabetes mellitus. Last A1c 6.6. She checks his blood sugar at home and denies hypoglycemic and hyperglycemic episodes. She is on right medications. She has seen her glueline worker in the past 1 year. Foot care discussed. Check A1c. Hypertension with kidney disease. Blood pressure well controlled on current regimen. Advised appropriate hydration. Check basic panel. Hyperlipidemia. Last lipid panel within reasonable limits. Continue current regimen. Major depressive disorder. Continue Sertraline to 100 MG daily. She may benefit from therapy. DDD. She uses a cane to walk all the time. She will benefit from physical therapy. She has seen Dr. Hanna in the past. Chronic kidney disease stage 3. She does not appear to be in volume overload. Advised appropriate hydration. Avoid NSAIDs.She follows up with base ply hand Class 1 obesity. Advised dietary restrictions and regimental exercise. Goal is to lose 5-6 lbs a month. Generalized weakness and deconditioning. Patient encouraged to walk as much as possible. She is given prescription for a walker and referral for physical therapy She needs help with activities of daily living. She needs help with transferring, toileting, dressing, transportation Screening blood work before next appointment. General health concerns discussed with patient. Scribe services used to formulate this note under HIPAA compliance and under [place] law mandated for scribe services. Patient aware of service. Verbal consent and written consent taken from the patient. Patient understands and verbalizes understanding of the scribes services and all questions answered regarding scribes services. Patient agrees to use of scribes services. 12/13/2024 Type 2 diabetes mellitus with unspecified complications (ICD-10 - E11.8) is 69 years old [place] speaking lady is accompanied by her daughter who is interpreting for her. She has DM type II, hypertension, hyperlipidemia, chronic kidney disease stage IIIb, generalized anxiety disorder/depression is here for annual physical. She also have significant arthritis in multiple joints. Plan is as follows DM type II. Last A1c is 8 and her goal hemoglobin A1c is preferably under 7. She is currently on Trulicity 3 mg every weekly and Tradjenta 5 mg daily. Because of chronic kidney disease she cannot be on any other medications. We started her on Lantus 10 units daily at bedtime and increase by 2 units every 3 days for a goal blood sugars of 130 in the morning and postprandial less than 180. She is on lisinopril, atorvastatin and Zetia. She is seen glueline worker in the past 1 year. Foot care discussed with the patient. EKG is normal sinus rhythm at [address] with [address] acute [address] or T wave changes, no bundle-branch blocks, normal intervals. Hyperlipidemia/hyper tension. Blood pressure well controlled and last lipid panel was within reasonable limits on current regimen of lisinopril 40 mg daily,hydrochlorothi azide 25 mg daily amlodipine 5 mg daily,metoprolol tartrate 50 mg along with atorvastatin 20 and Zetia 10 mg. Generalized anxiety disorder/major depression. Continue on Zoloft 100 mg daily and she is given referral to Dr. Camarillo. Multiple joint osteoarthritis. She takes [id number] Tylenol and also takes tizanidine 2 mg 1 tablet as needed. She uses a cane to walk. She needs help with activities of daily living as mentioned above. Chronic kidney disease stage IIIb. She is stable at this point. Avoid NSAIDs and she does not appear to be in volume overload. Obesity. Complications of obesity discussed with the patient and advised to decrease high calorie foods and try to lose a pound and a half week. Unfortunately she cannot do much exercise. Consider physical therapy. We will do referral for mammogram and bone density study. We will do Cologuard for her. She declines vaccination. She is full code and her daughter Chas is her healthcare proxy and MOLST form discussed with the patient. 12/13/2024 Encounter for general adult medical examination without abnormal findings (ICD-10 - Z00.00) is 69 years old [place] speaking lady is accompanied by her daughter who is interpreting for her. She has DM type II, hypertension, hyperlipidemia, chronic kidney disease stage IIIb, generalized anxiety disorder/depression is here for annual physical. She also have significant arthritis in multiple joints. Plan is as follows DM type II. Last A1c is 8 and her goal hemoglobin A1c is preferably under 7. She is currently on Trulicity 3 mg every weekly and Tradjenta 5 mg daily. Because of chronic kidney disease she cannot be on any other medications. We started her on Lantus 10 units daily at bedtime and increase by 2 units every 3 days for a goal blood sugars of 130 in the morning and postprandial less than 180. She is on lisinopril, atorvastatin and Zetia. She is seen glueline worker in the past 1 year. Foot care discussed with the patient. EKG is normal sinus rhythm at 71 bpm with no acute ST or T wave changes, no bundle-branch blocks, normal intervals. Hyperlipidemia/hyper tension. Blood pressure well controlled and last lipid panel was within reasonable limits on current regimen of lisinopril 40 mg daily,hydrochlorothi azide 25 mg daily amlodipine 5 mg daily,metoprolol tartrate 50 mg along with atorvastatin 20 and Zetia 10 mg. Generalized anxiety disorder/major depression. Continue on Zoloft 100 mg daily and she is given referral to Dr. Camarillo. Multiple joint osteoarthritis. She takes [id number] Tylenol and also takes tizanidine 2 mg 1 tablet as needed. She uses a cane to walk. She needs help with activities of daily living as mentioned above. Chronic kidney disease stage IIIb. She is stable at this point. Avoid NSAIDs and she does not appear to be in volume overload. Obesity. Complications of obesity discussed with the patient and advised to decrease high calorie foods and try to lose a pound and a half week. Unfortunately she cannot do much exercise. Consider physical therapy. We will do referral for mammogram and bone density study. We will do Cologuard for her. She declines vaccination. She is full code and her daughter Chas is her healthcare proxy and MOLST form discussed with the patient. 12/13/2024 Essential (primary) hypertension (ICD-10 - I10) is 69 years old [place] speaking lady is accompanied by her daughter who is interpreting for her. She has DM type II, hypertension, hyperlipidemia, chronic kidney disease stage IIIb, generalized anxiety disorder/depression is here for annual physical. She also have significant arthritis in multiple joints. Plan is as follows DM type II. Last A1c is 8 and her goal hemoglobin A1c is preferably under 7. She is currently on Trulicity 3 mg every weekly and Tradjenta 5 mg daily. Because of chronic kidney disease she cannot be on any other medications. We started her on Lantus 10 units daily at bedtime and increase by 2 units every 3 days for a goal blood sugars of 130 in the morning and postprandial less than 180. She is on lisinopril, atorvastatin and Zetia. She is seen glueline worker in the past 1 year. Foot care discussed with the patient. EKG is normal sinus rhythm at 71 bpm with no acute ST or T wave changes, no bundle-branch blocks, normal intervals. Hyperlipidemia/hyper tension. Blood pressure well controlled and last lipid panel was within reasonable limits on current regimen of lisinopril 40 mg daily,hydrochlorothi azide 25 mg daily amlodipine 5 mg daily,metoprolol tartrate 50 mg along with atorvastatin 20 and Zetia 10 mg. Generalized anxiety disorder/major depression. Continue on Zoloft 100 mg daily and she is given referral to Dr. Camarillo. Multiple joint osteoarthritis. She takes [id number] Tylenol and also takes tizanidine 2 mg 1 tablet as needed. She uses a cane to walk. She needs help with activities of daily living as mentioned above. Chronic kidney disease stage IIIb. She is stable at this point. Avoid NSAIDs and she does not appear to be in volume overload. Obesity. Complications of obesity discussed with the patient and advised to decrease high calorie foods and try to lose a pound and a half week. Unfortunately she cannot do much exercise. Consider physical therapy. We will do referral for mammogram and bone density study. We will do Cologuard for her. She declines vaccination. She is full code and her daughter Chas is her healthcare proxy and MOLST form discussed with the patient. 06/12/2024 Essential (primary) hypertension (ICD-10 - I10) Mrs. Boswell is a 68-year-old lady with hypertension, hyperlipidemia, CKD stage 3, diabetes mellitus type 2, anxiety/depression and polyosteoarthritis and she follows up with [facility] here for follow up. Plan is as follows: Type II diabetes mellitus. Last A1c 6.6. She checks his blood sugar at home and denies hypoglycemic and hyperglycemic episodes. She is on right medications. She has seen her glueline worker in the past 1 year. Foot care discussed. Check A1c. Hypertension with kidney disease. Blood pressure well controlled on current regimen. Advised appropriate hydration. Check basic panel. Hyperlipidemia. Last lipid panel within reasonable limits. Continue current regimen. Major depressive disorder. Continue Sertraline to 100 MG daily. She may benefit from therapy. DDD. She uses a cane to walk all the time. She will benefit from physical therapy. She has seen Dr. Hanna in the past. Chronic kidney disease stage 3. She does not appear to be in volume overload. Advised appropriate hydration. Avoid NSAIDs.She follows up with base ply hand Class 1 obesity. Advised dietary restrictions and regimental exercise. Goal is to lose 5-6 lbs a month. Generalized weakness and deconditioning. Patient encouraged to walk as much as possible. She is given prescription for a walker and referral for physical therapy She needs help with activities of daily living. She needs help with transferring, toileting, dressing, transportation Screening blood work before next appointment. General health concerns discussed with patient. Scribe services used to formulate this note under HIPAA compliance and under [place] law mandated for scribe services. Patient aware of service. Verbal consent and written consent taken from the patient. Patient understands and verbalizes understanding of the scribes services and all questions answered regarding scribes services. Patient agrees to use of scribes services. 02/23/2024 Essential (primary) hypertension (ICD-10 - I10) Mrs. Boswell is a 68-year-old lady with hypertension, hyperlipidemia, CKD stage 3, diabetes mellitus type 2, anxiety/depression and polyosteoarthritis and she follows up with [facility] here complaining of heavy bleeding which has been going on for a week now and it is painful. Plan is as follows: AUB. Discussed she may need to have transvaginal ultrasound done. Referred to OBGYN. Blood work ordered to check for CBC. Type II diabetes mellitus. She checks his blood sugar at home and denies hypoglycemic and hyperglycemic episodes. She is on right medications. She has seen her glueline worker in the past 1 year. Foot care discussed. Check A1c. Hypertension with kidney disease. Blood pressure well controlled on current regimen. Advised appropriate hydration. Check basic panel. Chronic kidney disease stage 3. She does not appear to be in volume overload. Advised appropriate hydration. Avoid NSAIDs.She follows up with base ply hand General health concerns discussed with patient. Scribe services used to formulate this note under HIPAA compliance and under [place] law mandated for scribe services. Patient aware of service. Verbal consent and written consent taken from the patient. Patient understands and verbalizes understanding of the scribes services and all questions answered regarding scribes services. Patient agrees to use of scribes services. 02/23/2024 Chronic kidney disease, stage 3 (moderate) (ICD-10 - N18.3) Mrs. Boswell is a 68-year-old lady with hypertension, hyperlipidemia, CKD stage 3, diabetes mellitus type 2, anxiety/depression and polyosteoarthritis and she follows up with [facility] here complaining of heavy bleeding which has been going on for a week now and it is painful. Plan is as follows: AUB. Discussed she may need to have transvaginal ultrasound done. Referred to OBGYN. Blood work ordered to check for CBC. Type II diabetes mellitus. She checks his blood sugar at home and denies hypoglycemic and hyperglycemic episodes. She is on right medications. She has seen her glueline worker in the past 1 year. Foot care discussed. Check A1c. Hypertension with kidney disease. Blood pressure well controlled on current regimen. Advised appropriate hydration. Check basic panel. Chronic kidney disease stage 3. She does not appear to be in volume overload. Advised appropriate hydration. Avoid NSAIDs.She follows up with [facility] General health concerns discussed with patient. Scribe services used to formulate this note under HIPAA compliance and under [place] law mandated for scribe services. Patient aware of service. Verbal consent and written consent taken from the patient. Patient understands and verbalizes understanding of the scribes services and all questions answered regarding scribes services. Patient agrees to use of scribes services. 06/12/2024 Mixed hyperlipidemia (ICD-10 - E78.2) Mrs. Boswell is a 68-year-old lady with hypertension, hyperlipidemia, CKD stage 3, diabetes mellitus type 2, anxiety/depression and polyosteoarthritis and she follows up with [facility] here for follow up. Plan is as follows: Type II diabetes mellitus. Last A1c 6.6. She checks his blood sugar at home and denies hypoglycemic and hyperglycemic episodes. She is on right medications. She has seen her glueline worker in the past 1 year. Foot care discussed. Check A1c. Hypertension with kidney disease. Blood pressure well controlled on current regimen. Advised appropriate hydration. Check basic panel. Hyperlipidemia. Last lipid panel within reasonable limits. Continue current regimen. Major depressive disorder. Continue Sertraline to 100 MG daily. She may benefit from therapy. DDD. She uses a cane to walk all the time. She will benefit from physical therapy. She has seen Dr. Hanna in the past. Chronic kidney disease stage 3. She does not appear to be in volume overload. Advised appropriate hydration. Avoid NSAIDs.She follows up with [facility] Class 1 obesity. Advised dietary restrictions and regimental exercise. Goal is to lose 5-6 lbs a month. Generalized weakness and deconditioning. Patient encouraged to walk as much as possible. She is given prescription for a walker and referral for physical therapy She needs help with activities of daily living. She needs help with transferring, toileting, dressing, transportation Screening blood work before next appointment. General health concerns discussed with patient. Scribe services used to formulate this note under HIPAA compliance and under [place] law mandated for scribe services. Patient aware of service. Verbal consent and written consent taken from the patient. Patient understands and verbalizes understanding of the scribes services and all questions answered regarding scribes services. Patient agrees to use of scribes services. 12/13/2024 Mixed hyperlipidemia (ICD-10 - E78.2) is 69 years old [place] speaking lady is accompanied by her daughter who is interpreting for her. She has DM type II, hypertension, hyperlipidemia, chronic kidney disease stage IIIb, generalized anxiety disorder/depression is here for annual physical. She also have significant arthritis in multiple joints. Plan is as follows DM type II. Last A1c is 8 and her goal hemoglobin A1c is preferably under 7. She is currently on Trulicity 3 mg every weekly and Tradjenta 5 mg daily. Because of chronic kidney disease she cannot be on any other medications. We started her on Lantus 10 units daily at bedtime and increase by 2 units every 3 days for a goal blood sugars of 130 in the morning and postprandial less than 180. She is on lisinopril, atorvastatin and Zetia. She is seen glueline worker in the past 1 year. Foot care discussed with the patient. EKG is normal sinus rhythm at 71 [address]pm with no acute ST or T wave changes, no bundle-branch blocks, normal intervals. Hyperlipidemia/hyper tension. Blood pressure well controlled and last lipid panel was within reasonable limits on current regimen of lisinopril 40 mg daily,hydrochlorothi azide 25 mg daily amlodipine 5 mg daily,metoprolol tartrate 50 mg along with atorvastatin 20 and Zetia 10 mg. Generalized anxiety disorder/major depression. Continue on Zoloft 100 mg daily and she is given referral to Dr. Camarillo. Multiple joint osteoarthritis. She takes [id number] Tylenol and also takes tizanidine 2 mg 1 tablet as needed. She uses a cane to walk. She needs help with activities of daily living as mentioned above. Chronic kidney disease stage IIIb. She is stable at this point. Avoid NSAIDs and she does not appear to be in volume overload. Obesity. Complications of obesity discussed with the patient and advised to decrease high calorie foods and try to lose a pound and a half week. Unfortunately she cannot do much exercise. Consider physical therapy. We will do referral for mammogram and bone density study. We will do Cologuard for her. She declines vaccination. She is full code and her daughter Chas is her healthcare proxy and MOLST form discussed with the patient. 12/13/2024 Chronic kidney disease, stage 3b (ICD-10 - N18.32) is 69 years old [place] speaking lady is accompanied by her daughter who is interpreting for her. She has DM type II, hypertension, hyperlipidemia, chronic kidney disease stage IIIb, generalized anxiety disorder/depression is here for annual physical. She also have significant arthritis in multiple joints. Plan is as follows DM type II. Last A1c is 8 and her goal hemoglobin A1c is preferably under 7. She is currently on Trulicity 3 mg every weekly and Tradjenta 5 mg daily. Because of chronic kidney disease she cannot be on any other medications. We started her on Lantus 10 units daily at bedtime and increase by 2 units every 3 days for a goal blood sugars of 130 in the morning and postprandial less than 180. She is on lisinopril, atorvastatin and Zetia. She is seen glueline worker in the past 1 year. Foot care discussed with the patient. EKG is normal sinus rhythm at 71 bpm with no acute ST or T wave changes, no bundle-branch blocks, normal intervals. Hyperlipidemia/hyper tension. Blood pressure well controlled and last lipid panel was within reasonable limits on current regimen of lisinopril 40 mg daily,hydrochlorothi azide 25 mg daily amlodipine 5 mg daily,metoprolol tartrate 50 mg along with atorvastatin 20 and Zetia 10 mg. Generalized anxiety disorder/major depression. Continue on Zoloft 100 mg daily and she is given referral to Dr. Camarillo. Multiple joint osteoarthritis. She takes [id number]-[id number] Tylenol and also takes tizanidine 2 mg 1 tablet as needed. She uses a cane to walk. She needs help with activities of daily living as mentioned above. Chronic kidney disease stage IIIb. She is stable at this point. Avoid NSAIDs and she does not appear to be in volume overload. Obesity. Complications of obesity discussed with the patient and advised to decrease high calorie foods and try to lose a pound and a half week. Unfortunately she cannot do much exercise. Consider physical therapy. We will do referral for mammogram and bone density study. We will do Cologuard for her. She declines vaccination. She is full code and her daughter Chas is her healthcare proxy and MOLST form discussed with the patient. 06/12/2024 Chronic kidney disease, stage 3 (moderate) (ICD-10 - N18.3) Mrs. Boswell is a 68-year-old lady with hypertension, hyperlipidemia, CKD stage 3, diabetes mellitus type 2, anxiety/depression and polyosteoarthritis and she follows up with [facility] here for follow up. Plan is as follows: Type II diabetes mellitus. Last A1c 6.6. She checks his blood sugar at home and denies hypoglycemic and hyperglycemic episodes. She is on right medications. She has seen her glueline worker in the past 1 year. Foot care discussed. Check A1c. Hypertension with kidney disease. Blood pressure well controlled on current regimen. Advised appropriate hydration. Check basic panel. Hyperlipidemia. Last lipid panel within reasonable limits. Continue current regimen. Major depressive disorder. Continue Sertraline to 100 MG daily. She may benefit from therapy. DDD. She uses a cane to walk all the time. She will benefit from physical therapy. She has seen Dr. Hanna in the past. Chronic kidney disease stage 3. She does not appear to be in volume overload. Advised appropriate hydration. Avoid NSAIDs.She follows up with [facility] hand Class 1 obesity. Advised dietary restrictions and regimental exercise. Goal is to lose 5-6 lbs a month. Generalized weakness and deconditioning. Patient encouraged to walk as much as possible. She is given prescription for a walker and referral for physical therapy She needs help with activities of daily living. She needs help with transferring, toileting, dressing, transportation Screening blood work before next appointment. General health concerns discussed with patient. Scribe services used to formulate this note under HIPAA compliance and under [place] law mandated for scribe services. Patient aware of service. Verbal consent and written consent taken from the patient. Patient understands and verbalizes understanding of the scribes services and all questions answered regarding scribes services. Patient agrees to use of scribes services. 12/13/2024 Age-related osteoporosis without current pathological fracture (ICD-10 - M81.0) is 69 years old [place] speaking lady is accompanied by her daughter who is interpreting for her. She has DM type II, hypertension, hyperlipidemia, chronic kidney disease stage IIIb, generalized anxiety disorder/depression is here for annual physical. She also have significant arthritis in multiple joints. Plan is as follows DM type II. Last A1c is 8 and her goal hemoglobin A1c is preferably under 7. She is currently on Trulicity 3 mg every weekly and Tradjenta 5 mg daily. Because of chronic kidney disease she cannot be on any other medications. We started her on Lantus 10 units daily at bedtime and increase by 2 units every 3 days for a goal blood sugars of 130 in the morning and postprandial less than 180. She is on lisinopril, atorvastatin and Zetia. She is seen glueline worker in the past 1 year. Foot care discussed with the patient. EKG is normal sinus rhythm at 71 bpm with no acute ST or T wave changes, no bundle-branch blocks, normal intervals. Hyperlipidemia/hyper tension. Blood pressure well controlled and last lipid panel was within reasonable limits on current regimen of lisinopril 40 mg daily,hydrochlorothi azide 25 mg daily amlodipine 5 mg daily,metoprolol tartrate 50 mg along with atorvastatin 20 and Zetia 10 mg. Generalized anxiety disorder/major depression. Continue on Zoloft 100 mg daily and she is given referral to Dr. Camarillo. Multiple joint osteoarthritis. She takes bpfd-iur-bxelyxq Tylenol and also takes tizanidine 2 mg 1 tablet as needed. She uses a cane to walk. She needs help with activities of daily living as mentioned above. Chronic kidney disease stage IIIb. She is stable at this point. Avoid NSAIDs and she does not appear to be in volume overload. Obesity. Complications of obesity discussed with the patient and advised to decrease high calorie foods and try to lose a pound and a half week. Unfortunately she cannot do much exercise. Consider physical therapy. We will do referral for mammogram and bone density study. We will do Cologuard for her. She declines vaccination. She is full code and her daughter Chas is her healthcare proxy and MOLST form discussed with the patient. 12/13/2024 Other obesity due to excess calories (ICD-10 - E66.09) is 69 years old [place] speaking lady is accompanied by her daughter who is interpreting for her. She has DM type II, hypertension, hyperlipidemia, chronic kidney disease stage IIIb, generalized anxiety disorder/depression is here for annual physical. She also have significant arthritis in multiple joints. Plan is as follows DM type II. Last A1c is 8 and her goal hemoglobin A1c is preferably under 7. She is currently on Trulicity 3 mg every weekly and Tradjenta 5 mg daily. Because of chronic kidney disease she cannot be on any other medications. We started her on Lantus 10 units daily at bedtime and increase by 2 units every 3 days for a goal blood sugars of 130 in the morning and postprandial less than 180. She is on lisinopril, atorvastatin and Zetia. She is seen glueline worker in the past 1 year. Foot care discussed with the patient. EKG is normal sinus rhythm at 71 bpm with no acute ST or T wave changes, no bundle-branch blocks, normal intervals. Hyperlipidemia/hyper tension. Blood pressure well controlled and last lipid panel was within reasonable limits on current regimen of lisinopril 40 mg daily,hydrochlorothi azide 25 mg daily amlodipine 5 mg daily,metoprolol tartrate 50 mg along with atorvastatin 20 and Zetia 10 mg. Generalized anxiety disorder/major depression. Continue on Zoloft 100 mg daily and she is given referral to Dr. Camarillo. Multiple joint osteoarthritis. She takes wibb-vrp-ulhuhzj Tylenol and also takes tizanidine 2 mg 1 tablet as needed. She uses a cane to walk. She needs help with activities of daily living as mentioned above. Chronic kidney disease stage IIIb. She is stable at this point. Avoid NSAIDs and she does not appear to be in volume overload. Obesity. Complications of obesity discussed with the patient and advised to decrease high calorie foods and try to lose a pound and a half week. Unfortunately she cannot do much exercise. Consider physical therapy. We will do referral for mammogram and bone density study. We will do Cologuard for her. She declines vaccination. She is full code and her daughter Chas is her healthcare proxy and MOLST form discussed with the patient. 12/13/2024 Dietary counseling and surveillance (ICD-10 - Z71.3) is 69 years old [place] speaking lady is accompanied by her daughter who is interpreting for her. She has DM type II, hypertension, hyperlipidemia, chronic kidney disease stage IIIb, generalized anxiety disorder/depression is here for annual physical. She also have significant arthritis in multiple joints. Plan is as follows DM type II. Last A1c is 8 and her goal hemoglobin A1c is preferably under 7. She is currently on Trulicity 3 mg every weekly and Tradjenta 5 mg daily. Because of chronic kidney disease she cannot be on any other medications. We started her on Lantus 10 units daily at bedtime and increase by 2 units every 3 days for a goal blood sugars of 130 in the morning and postprandial less than 180. She is on lisinopril, atorvastatin and Zetia. She is seen glueline worker in the past 1 year. Foot care discussed with the patient. EKG is normal sinus rhythm at 71 bpm with no acute ST or T wave changes, no bundle-branch blocks, normal intervals. Hyperlipidemia/hyper tension. Blood pressure well controlled and last lipid panel was within reasonable limits on current regimen of lisinopril 40 mg daily,hydrochlorothi azide 25 mg daily amlodipine 5 mg daily,metoprolol tartrate 50 mg along with atorvastatin 20 and Zetia 10 mg. Generalized anxiety disorder/major depression. Continue on Zoloft 100 mg daily and she is given referral to Dr. Camarillo. Multiple joint osteoarthritis. She takes sixj-hua-uafrjgh Tylenol and also takes tizanidine 2 mg 1 tablet as needed. She uses a cane to walk. She needs help with activities of daily living as mentioned above. Chronic kidney disease stage IIIb. She is stable at this point. Avoid NSAIDs and she does not appear to be in volume overload. Obesity. Complications of obesity discussed with the patient and advised to decrease high calorie foods and try to lose a pound and a half week. Unfortunately she cannot do much exercise. Consider physical therapy. We will do referral for mammogram and bone density study. We will do Cologuard for her. She declines vaccination. She is full code and her daughter Chas is her healthcare proxy and MOLST form discussed with the patient. Plan Of Treatment Pending Test Test Name Order Date MAMMOGRAM, SCREENING 12/13/2024 Bone Density 12/13/2024 LIPID PANEL 08/12/2022 RESPIRATORY PATHOGEN PANEL, PCR 09/29/20 US Transvaginal 02/23/2024 Future Test Test Name Order Date Hemoglobin [id number] 12/13/2024 Next Appt Details Provider Name:KATHARINA ANGEL , 06/14/2025 09:45:00 AM, [address] [place] [address], [id number], Insurance Providers Payer Name Payer Address Payer Phone Subscriber Number Group Number Insured Name Patient Relationship to Insured Coverage Start Date Coverage End Date Medicare [address] [place] [id number] Ben Boswell Self - patient is the insured 1 [place] [employer] [address] [place] [address] [id number] Ben Boswell Self - patient is the insured [employer] Supplement [address] [place] [address] [id number] Ben Boswell Self - patient is the insured Medical (General) History Medical History History ICD Code hypertension hyperlipidemia CKD stage 3 see Renal diabetes mellitus type 2 anxiety/depression and see Therapist Personal history of COVID-19 10/[address] Hanna Surgical History Surgery Date(Month/Year) hysterectomy
--- OUTSIDE RECORDS SUMMARY | 2024-12-26 12:37 | XMS_ITS | Clinical Summary ---
Author Organization [facility] Address [address] [place] [phone] Phone Care Team Providers Care Glueline Worker Name Role Phone Yang Fernando MD Primary Care Provider [phone] Allergies No known active allergies Medications Trulicity 3 MG/0.5ML solution pen-injector 1 Active Tradjenta 5 MG tablet 2 Active metoprolol tartrate (LOPRESSOR) 50 MG tablet 1 Active sertraline (ZOLOFT) 25 MG tablet 1 Active glimepiride (AMARYL) 4 MG tablet Take 1 tablet by mouth 1 (one) time each day 2 Active amLODIPine (NORVASC) 5 MG tablet 5 mg 2 Active atorvastatin (LIPITOR) 20 MG tablet 2 Active lisinopril 40 MG tablet 2 Active ergocalciferol 1.25 MG (27052 UT) capsule Take 50,000 Units by mouth 1 (one) time per week Active Meclizine HCl 25 MG chewable tablet Chew Active Diclofenac Sodium 1 % cream Apply topically Active hydroCHLOROthia zide 25 MG tablet Take 25 mg by mouth 1 (one) time each day Active Active Problems Problem Noted Date Diagnosed Date Hypertensive chronic kidney disease 07/10/2024 Polyarthritis 06/02/2022 Vitamin D deficiency 06/02/2022 Mixed hyperlipidemia 06/02/2022 Disorder due to type 2 diabetes mellitus 022 Essential hypertension 11/24/2021 Severe major depression, sin gle episode, without psychotic features 02/27/2021 Polyp of corpus uteri 08/20/2020 Overview (11/24/2021): 07/22/[address] Bolton Postmenopausal bleeding 08/24/2019 Overview (11/24/2021): 08/19/19 - seen at [facility] ED c/o vaginal bleeding. Pelvis U/S: [...] the differential including adenomyosis or small fibroids. Stage 3a chronic kidney disease 01/16/2018 Overview (11/24/2021): Component Latest Ref Rng & Units 01/14/2018 [...] - 1.1 mg/dL 0.76 EGFR > 60 10/18/18 - Renal U/S: IMPRESSION: 1. Unremarkable appearance of the right kidney. 2. Left upper pole mild to moderate caliectasis with no evidence of obstructing stone or mass. No dilatation of the renal pelvis is demonstrated. Clinical correlation is recommended and further assessment with abdominal CT if deemed necessary. 11/22/18 - Seen NEPHRO Dr. Ureña: Ca+ phosphorus, and intact PTH all at goal, c/w Lisinopril F/U 6 mos Near syncope 01/11/2018 Overview (11/24/2021): 12/21-12/22/17 - [facility] [place] [facility] [place] episode of syncope/ unreponsivenss following an emotional conversation with son who is in [place]. She had NIH score of 3 initially for being nonverbal but otherwise normal. CT and CTA h/n of head neg, tele monitoring without any cardiac arrthymias. Discharged next day. Outpatient ECHO and Holter monitor recommended Colonoscopy declined 12/30/2016 Procedure not carried out because of patient's d ecision 12/30/2016 Language spoken - finding 10/13/2016 Noncompliance with treatment 10/13/2016 Overview (11/24/2021): Poor medication compliance due to depression Obese class I 05/06/2016 Umbilical hernia 12/19/2015 Overview (11/24/2021): Small fat containing periumbilical hernia 2.3 x 1.8 cm - retroperitoneal lipoma On the left involving left renal pelvis ,left upper lobe caliectasis . Chronic low back pain 09/10/2015 Overview (11/24/2021): Seen by [facility] for lumbar degenerative disease.vinnie robles/rosey -xray- mild lumbar spine degenerative disease-11/30/15, 11/21/15- no acute findings - degenerative disc disease at L4/5 and L5/s1 level. Neck pain 09/10/2015 Overview (11/24/2021): Degenerative disc disease at c4/5, c5/6,c6/7 levels. Moderate bone narrowing at rt c3-4 foramen. Pain in elbow 09/10/2015 Coronary arteriosclerosis 09/05/2015 Gastritis 09/04/2015 Shoulder pain 09/04/2015 Overview (11/24/2021): Left shoulder pain x 3 years On shoulder sling -seen by [facility]- adhesive capsulitis In diabetic left shoulder. On meloxicam,tramadol. Transient insomnia 09/04/2015 Dyslipidemia 05/06/2015 Overview (11/24/2021): ldl-84 Mixed anxiety and depressive disorder 05/06/2015 Overview (11/24/2021): Severe- . Posttraumatic stress disorder 05/06/2015 Hypertensive disorder 06/01/2013 Type 2 diabetes mellitus without complication Visual impairment 06/01/2013 Encounters Date Type Department Care Team Description 11/06/2024 2:45 PM EST Office Visit [facility] [address] [phone] Taqueria Cordero MD Stage 3 chronic kidney disease, not otherwise specified (HCC) (Primary Dx); Hypertensive chronic kidney disease; Type 2 diabetes mellitus with diabetic chronic kidney disease (HCC); Other proteinuria 10/01/2024 Orders Only [facility] [address] [phone] Mark Ford MD Stage 3a chronic kidney disease (HCC); Hypertensive chronic kidney disease; Type 2 diabetes mellitus with diabetic chronic kidney disease (HCC); Mixed hyperlipidemia; Transient insomnia from Last 3 Months Immunizations Name Administration Dates Next Due Influenza TIV (IM) 12/19/2015 Influenza, Quadrivalent, Preservative Free 08/26 Influenza, Quadrivalent, With Preservative 07/09 Moderna SARS-COV-2 01/25/2021,12/28/2020 PPD Test 12/30/2016,08/23/2015 Pneumococcal Conjugate 13-Valent 12/30/2016 Pneumococcal Polysaccharide 06/01/2013 TD Preservative Free 12/19/2015 Tdap 06/01/2013 Social History Tobacco Use Types Packs/Day Years Used Date Smoking Tobacco: Never Smokeless Tobacco: Never Tobacco Cessation:Counseling Given: Not Answered Alcohol Use Standard Drinks/Week Comments No 0 (1 standard drink = 0.6 oz pur e alcohol) Comments Unknown Sex and Gender Information Value Date Recorded Sex Assigned at Not on file Legal Sex Female 4:53 PM EDT Gender Identity Not on file Sexual Orientation Not on file Last Filed Vital Signs Vital Sign Reading Time Taken Comments Blood Pressure 120/60 11/06/2024 3:02 PM EST Pulse 75 11/06/2024 3:02 PM EST Temperature - - Respiratory Rate - - Oxygen Saturation 98% 07/14/2023 1:03 PM EDT Inhaled Oxygen Concentration - - Weight 78.9 kg (174 lb) 11/06/2024 3:02 PM EST Height 160 cm (5' 3 ) 06/02/2022 2:21 PM EDT Body Mass Index 30.82 06/02/2022 2:21 PM EDT Plan of Treatment Upcoming Encounters Date Type Department Care Team (Late st Contact Info) Description 05/14/2025 2:45 PM EDT Office Visit [facility] [address] [phone] Taqueria Cordero MD [address] [phone] Health Maintenance Due Date Last Done Comments Breast Cancer Screening 1955 Colorectal Cancer Screening: Annual FOBT 2004 Colorectal Cancer Screening: Colonoscopy 2004 Colorectal Cancer Screening: Sigmoidoscopy 2004 Pneumococcal Vaccine: 65+ Years (3 of 3 - PPSV23 or PCV20) 06/01/2018 12/30/2016, 06/01/2013 Diabetes: Ophthalmology Exam 03/21/2021 Diabetes: Pedal Pulse Checked 03/21/2021 Diabetes: Sensory Foot Exam 03/21/2021 Diabetes: Visual Foot Exam 03/21/2021 Diabetes: Hemoglobin A1C 09/02/2022 022, 12/15/2021, 01/14/2021 Influenza Vaccine (#1) 2024 7, 12/19/2015, 07/09/2015 Hepatitis B Vaccine Aged Out No longe r eligible based on patient's age to complete this topic Procedures Procedure Name Priority Date/Time Associated Diagnosis Comments VITAMIN D 25 HYDROXY Routine 12/11/2024 10:35 AM EST Stage 3 chronic kidney disease, not otherwise specified (HCC) URINE ALBUMIN / CREATININE RATIO Routine 12/11/2024 10:35 AM EST Stage 3 chronic kidney disease, not otherwise specified (HCC) PTH, INTACT Routine 12/11/2024 10:35 AM EST Stage 3 chronic kidney disease, not otherwise specified (HCC) RENAL FUNCTION PANEL Routine 12/11/2024 10:35 AM EST Stage 3 chronic kidney disease, not otherwise specified (HCC) HEMOGLOBIN A1C Routine 06/02/2022 2:46 PM EDT Chronic kidney disease stage 3 (HCC) Type 2 diabetes mellitus without complication (HCC) from Last 3 Months or Most Recently Relevant to Health Maintenance Results * (ABNORMAL) urine albumin / creatinine ratio (12/11/2024 10:35 AM EST) Creatinine, Ur 113.6 Not Estab. mg/dL [facility] Albumin, Urine 225.2 Not Estab. ug/mL [facility] Albumin/Creatin ine Ratio 198(H) 0 - 29 mg/g creat [facility] Comment: ? Normal: ?0 - ??29 ? Moderately increased: 30 - 300 ? Severely increased: ? >300 Urine (Urine, Clean Catch) 12/11/2024 10:35 AM EST 12/11/2024 Taqueria Cordero MD LAB URINE ORDERABLES Final Resul t Performing Organization Address City/[facility]/ZIP Co de Phone Number [facility] [address] [place] [phone] * (ABNORMAL) Vit D 25 hydroxy (12/11/2024 10:35 AM EST) Vitamin D, 25-OH, Total 24.0(L) 30.0 - 100.0 ng/mL [facility] Comment: Vitamin D deficiency has been defined by the [place] of Medicine and an Endocrine Society practice guideline as a level of serum 25-OH vitamin D less than 20 ng/mL (1,2). The Endocrine Society went on to further define vitamin D insufficiency as a level between 21 and 29 ng/mL (2). 1. IOM ([place] of Medicine). 2010. Dietary reference ?? intakes for calcium and D. [place]: The ?? National [employer]. 2. Shari MF, Lillian NC, Nathan FERRELL, et al. ?? Evaluation, treatment, and prevention of vitamin D ?? deficiency: an Endocrine Society clinical practice ?? guideline. JCEM. 2010; 96(7):1911-30. Blood (Blood, Venous) 12/11/2024 10:35 AM EST 12/11/2024 us Taqueria Cordero MD LAB BLOOD ORDERABLES Final Resul t Performing Organization Address City/[facility]/ZIP Co de Phone Number [facility] [address] [place] [address] * (ABNORMAL) PTH, intact (12/11/2024 10:35 AM EST) PTH 96(H) 15 - 65 pg/mL [facility] Blood (Blood, Venous) 12/11/2024 10:35 AM EST 12/11/2024 us Taqueria Cordero MD LAB BLOOD ORDERABLES Final Resul t [email or web address] [address] [place] [phone] * (ABNORMAL) Renal funtion panel (12/11/2024 10:35 AM EST) Glucose 190(H) 70 - 99 mg/dL [facility] BUN 35(H) 8 - 27 mg/dL [facility] Creatinine 1.57(H) 0.57 - 1.00 mg/dL [facility] eGFR CKD-EPI CR 2020 35(L) >59 mL/min/1.7 3 [facility] BUN/Creatinine Ratio 22 12 - 28 [facility] Sodium 139 134 - 144 mmol/L [facility] Potassium 4.8 3.5 - 5.2 mmol/L [facility] Chloride 104 96 - 106 mmol/L [facility] Bicarbonate (CO2) 19(L) 20 - 29 mmol/L [facility] Calcium 9.8 8.7 - 10.3 mg/dL [facility] Albumin 4.4 3.9 - 4.9 g/dL [facility] Phosphorus 3.6 3.0 - 4.3 mg/dL [facility] Blood (Blood, Venous) 12/11/2024 10:35 AM EST 12/11/2024 us Taqueria Cordero MD LAB BLOOD ORDERABLES Final Resul t [facility] [address] [place] [phone] * (ABNORMAL) Hemoglobin A1c (06/02/2022 2:46 PM EDT) Hemoglobin A1C 7.5(H) (4.0-5.6) % [facility] Comment: MONITORING: In known diabetic patients, hemoglobin A1c targets should be discussed with health care provider. DIAGNOSTIC USE: ??The [place] Diabetes Association (ADA) and the World Health Organization (WHO) recommend the use of HbA1c to diagnose diabetes using a threshold of 6.5%. Patients who have an HbA1c between 5.7% and 6.4% are considered at increased risk for developing diabetes in the future. CAUTION: Falsely low HbA1c results may be observed in patients with hemolytic anemia, homozygous forms of abnormal hemoglobin (e.g. SS, CC, SC), , recent blood loss or hemoglobin F greater than 7%. Fructosamine may be used as an alternate test in these cases. REFERENCE: ADA: Standards of Medical Care in Diabetes 2020, The Journal of Clinical and Applied Research and Education Volume 43, Supplement 1 Testing performed or reported by [facility], a Service of [facility], [address] [place] [address] Khanh Lopez MD, Sanitary Inspector [facility]# [id number] Blood (Blood, Venous) 06/02/2022 2:46 PM EDT 06/02/2022 2:49 PM EDT us Kartik Ureña MD LAB BLOOD ORDERABLES Final Re sult [facility] from Last 3 Months or Most Recently Relevant to Health Maintenance Insurance [place] Care Teams Glueline Worker Relationship Specialty Start Date End Date Yang Fernando MD [address] [place] [address] PCP - General Internal Medicine 12/02/21
--- OUTSIDE RECORDS SUMMARY | 2024-12-26 12:37 | XMS_ITS ---
Author Organization [facility] Address [address] [place] [address] Care Team Providers Care Head Of Loss Prevention Name Role Phone KATHARINA ANGEL Primary Care Provider Allergies No Known Allergies Reason For Referral Reason EUN- Dr Moy Diagnosis 1 Anxiety disorder, un specified (F41.9) Referral Organization [facility] Referring Provider First Name KATHARINA Referring Provider Last Name STANLEY Referring Provider Speciality Internal M edicine Referred Provider Specialty Psychiatry General Notes Referral faxed to Dr Moy Psychiatry . Please call patient to schedule.Pedro Christy 12/22/2024 03:08:17 PM > Referral Priority Routine REASON FOR VISIT Medicare Wellness Medications Medication SIG (Take, Route, Frequency, Duration) Notes Start Date End Date Status Lisinopril 40 MG TAKE 1 TABLET BY MOUTH EVERY DAY FOR 30 DAYS for 90 Active Clotrimazole 1 % 1 application Externally Twice a day for 14 days 12/13/2023 Not-Taking Sertraline HCl 100 MG TAKE 1 TABLET BY MOUTH EVERY DAY FOR 30 DAYS for 30 Active Vitamin D3 25 MCG (1000 UT) TAKE 1 TABLE T BY MOUTH EVERY DAY FOR 90 DAYS for 90 Active Atorvastatin Calcium 20 MG TAKE 1 TABLET BY MOUTH EVERY DAY FOR 30 DAYS for 90 Active Trulicity 3 MG/0.5ML as directed pre filled suryng Subcutaneous once a week for 90 days 07/18/2021 Active amLODIPine Besylate 5 MG 1 tablet Orally Once a day for 90 days Active Ezetimibe 10 MG 1 tablet Orally Once a day for 90 days Active Diclofenac Sodium 1 % as directed Externally daily for 30 days Active Tradjenta 5 MG TAKE 1 TABLET BY MOUTH EVERY DAY for 90 Active Lantus SoloStar 100 UNIT/ML 10 units Subcutaneous once a day for 30 days 12/13/2024 Active FreeStyle Lite Test - 1 strip once a day Dx: E11.8 for 90 days Active Sertraline HCl 25 MG TAKE 1 TABLET BY MOUTH EVERY DAY for 30 Active Fluticasone Propionate 50 MCG/ACT USE 1 SPRAY INTO EACH NOSTRIL EVERY DAY FOR 30 DAYS for 60 Active Aspirin 81 MG 1 tablet Orally Once a day Active Metoprolol Tartrate 50 MG 1 tablet with food Orally Twice a day for 30 days Active hydroCHLOROthiazide 25 MG 1 tablet in th e morning Orally Once a day for 30 days Active Vitamin D (Ergocalciferol) 1.25 MG (28328 UT) TAKE 1 CAPSULE BY MOUTH ONE TIME PER WEEK for 28 Active tiZANidine HCl 2 MG 1 tablet as needed Orally Three times a day for 10 days 12/10/2022 Active Social History Tobacco Use: Social History Observation [...] Problem Status W/U Status Risk Notes Problem Chronic kidney disease stage 3B (disorder) (984904580) Chronic kidney disease, stage 3b (N18.32) Active confirmed Problem Obesity due to excess calories (635798986) Other obesity due to excess calories (E66.09) Active confirmed Vital Signs Temperature 97.3 degrees Fahrenheit 12/13/19 25 Oximetry 98 % 12/13/2024 Heart Rate 80 /min 12/13/2024 Blood pressure systolic 130 mm Hg 12/13/19 25 Blood pressure diastolic 80 mm Hg 025 Weight 175.2 lbs 12/13/2024 BMI 33.1 kg/m2 12/13/2024 Height 61 in 12/13/2024 Encounters Encounter Location Date Provider Diagnosis [facility] [address] [address] 12/13/2024 KATHARINA ANGEL Encounter for genera l adult medical examination without abnormal findings Z00.00 ; Type 2 diabetes mellitus with unspecified complications E11.8 ; Essential (primary) hypertension I10 ; Mixed hyperlipidemia E78.2 ; Chronic kidney disease, stage 3b N18.32 ; Age-related osteoporosis without current pathological fracture M81.0 ; Other obesity due to excess calories E66.09 and Dietary counseling and surveillance Z71.3 Assessments Encounter Date Diagnosis (ICD Code) Assessment Notes Treatment Notes Treatment Clinical Notes Section Notes 12/13/2024 Encounter for general adult medical examination without abnormal findings (ICD-10 - Z00.00) is 69 years old Turkish speaking lady is accompanied by her daughter who is interpreting for her. She has DM type II, hypertension, hyperlipidemia, chronic kidney disease stage IIIb, generalized anxiety disorder/depressio n is here for annual physical. She also [...] lisinopril, atorvastatin and Zetia. 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 Foot care discussed with the patient. EKG is normal sinus rhythm at 71 bpm with no acute ST or T wave changes, no bundle-branch blocks, normal intervals. Hyperlipidemia/hyp ertension. Blood pressure well controlled and last lipid panel was within reasonable limits on current regimen of lisinopril 40 mg daily,hydrochlorot hiazide 25 mg daily amlodipine 5 mg daily,metoprolol tartrate 50 mg along with atorvastatin 20 and Zetia 10 mg. Generalized anxiety disorder/major depression. Continue on Zoloft 100 mg daily and she is given referral to Dr. Camarillo. Multiple joint osteoarthritis. She takes mwpx-nyd-bdommbd Tylenol and also takes tizanidine 2 mg [...] MOLST form discussed with the patient. 12/13/2024 Type 2 diabetes mellitus with unspecified complications (ICD-10 - E11.8) is 69 years old Turkish speaking lady is accompanied by her daughter who is interpreting for her. She has DM type II, hypertension, hyperlipidemia, chronic kidney disease stage IIIb, generalized anxiety disorder/depressio n is here for annual physical. She also [...] lisinopril, atorvastatin and Zetia. 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 Foot care discussed with the patient. EKG is normal sinus rhythm at 71 bpm with no acute ST or T wave changes, no bundle-branch blocks, normal intervals. Hyperlipidemia/hyp ertension. Blood pressure well controlled and last lipid panel was within reasonable limits on current regimen of lisinopril 40 mg daily,hydrochlorot hiazide 25 mg daily amlodipine 5 mg daily,metoprolol tartrate 50 mg along with atorvastatin 20 and Zetia 10 mg. Generalized anxiety disorder/major depression. Continue on Zoloft 100 mg daily and she is given referral to Dr. Camarillo. Multiple joint osteoarthritis. She takes rvtp-dhb-sebvanh Tylenol and also takes tizanidine 2 mg [...] (ICD-10 - I10) is 69 years old Turkish speaking lady is accompanied by her daughter who is interpreting for her. She has DM type II, hypertension, hyperlipidemia, chronic kidney disease stage IIIb, generalized anxiety disorder/depressio n is here for annual physical. She also [...] lisinopril, atorvastatin and Zetia. 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 Foot care discussed with the patient. EKG is normal sinus rhythm at 71 bpm with no acute ST or T wave changes, no bundle-branch blocks, normal intervals. Hyperlipidemia/hyp ertension. Blood pressure well controlled and last lipid panel was within reasonable limits on current regimen of lisinopril 40 mg daily,hydrochlorot hiazide 25 mg daily amlodipine 5 mg daily,metoprolol tartrate 50 mg along with atorvastatin 20 and Zetia 10 mg. Generalized anxiety disorder/major depression. Continue on Zoloft 100 mg daily and she is given referral to Dr. Camarillo. Multiple joint osteoarthritis. She takes krjg-igr-psvdndo Tylenol and also takes tizanidine 2 mg [...] MOLST form discussed with the patient. 12/13/2024 Mixed hyperlipidemia (ICD-10 - E78.2) is 69 years old Turkish speaking lady is accompanied by her daughter who is interpreting for her. She has DM type II, hypertension, hyperlipidemia, chronic kidney disease stage IIIb, generalized anxiety disorder/depressio n is here for annual physical. She also [...] lisinopril, atorvastatin and Zetia. 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 Foot care discussed with the patient. EKG is normal sinus rhythm at 71 bpm with no acute ST or T wave changes, no bundle-branch blocks, normal intervals. Hyperlipidemia/hyp ertension. Blood pressure well controlled and last lipid panel was within reasonable limits on current regimen of lisinopril 40 mg daily,hydrochlorot hiazide 25 mg daily amlodipine 5 mg daily,metoprolol tartrate 50 mg along with atorvastatin 20 and Zetia 10 mg. Generalized anxiety disorder/major depression. Continue on Zoloft 100 mg daily and she is given referral to Dr. Camarillo. Multiple joint osteoarthritis. She takes fkhk-czw-plcmnio Tylenol and also takes tizanidine 2 mg [...] (ICD-10 - N18.32) is 69 years old Turkish speaking lady is accompanied by her daughter who is interpreting for her. She has DM type II, hypertension, hyperlipidemia, chronic kidney disease stage IIIb, generalized anxiety disorder/depressio n is here for annual physical. She also [...] lisinopril, atorvastatin and Zetia. 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 Foot care discussed with the patient. EKG is normal sinus rhythm at 71 bpm with no acute ST or T wave changes, no bundle-branch blocks, normal intervals. Hyperlipidemia/hyp ertension. Blood pressure well controlled and last lipid panel was within reasonable limits on current regimen of lisinopril 40 mg daily,hydrochlorot hiazide 25 mg daily amlodipine 5 mg daily,metoprolol tartrate 50 mg along with atorvastatin 20 and Zetia 10 mg. Generalized anxiety disorder/major depression. Continue on Zoloft 100 mg daily and she is given referral to Dr. Camarillo. Multiple joint osteoarthritis. She takes otvx-uis-tmaqlxl Tylenol and also takes tizanidine 2 mg [...] MOLST form discussed with the patient. 12/13/2024 Age-related osteoporosis without current pathological fracture (ICD-10 - M81.0) is 69 years old Turkish speaking lady is accompanied by her daughter who is interpreting for her. She has DM type II, hypertension, hyperlipidemia, chronic kidney disease stage IIIb, generalized anxiety disorder/depressio n is here for annual physical. She also [...] lisinopril, atorvastatin and Zetia. 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 Foot care discussed with the patient. EKG is normal sinus rhythm at 71 bpm with no acute ST or T wave changes, no bundle-branch blocks, normal intervals. Hyperlipidemia/hyp ertension. Blood pressure well controlled and last lipid panel was within reasonable limits on current regimen of lisinopril 40 mg daily,hydrochlorot hiazide 25 mg daily amlodipine 5 mg daily,metoprolol tartrate 50 mg along with atorvastatin 20 and Zetia 10 mg. Generalized anxiety disorder/major depression. Continue on Zoloft 100 mg daily and she is given referral to Dr. Camarillo. Multiple joint osteoarthritis. She takes knlz-oxe-yzikqpa Tylenol and also takes tizanidine 2 mg [...] (ICD-10 - E66.09) is 69 years old Turkish speaking lady is accompanied by her daughter who is interpreting for her. She has DM type II, hypertension, hyperlipidemia, chronic kidney disease stage IIIb, generalized anxiety disorder/depressio n is here for annual physical. She also [...] lisinopril, atorvastatin and Zetia. 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 Foot care discussed with the patient. EKG is normal sinus rhythm at 71 bpm with no acute ST or T wave changes, no bundle-branch blocks, normal intervals. Hyperlipidemia/hyp ertension. Blood pressure well controlled and last lipid panel was within reasonable limits on current regimen of lisinopril 40 mg daily,hydrochlorot hiazide 25 mg daily amlodipine 5 mg daily,metoprolol tartrate 50 mg along with atorvastatin 20 and Zetia 10 mg. Generalized anxiety disorder/major depression. Continue on Zoloft 100 mg daily and she is given referral to Dr. Camarillo. Multiple joint osteoarthritis. She takes sgpb-xpk-igclhio Tylenol and also takes tizanidine 2 mg [...] (ICD-10 - Z71.3) is 69 years old Turkish speaking lady is accompanied by her daughter who is interpreting for her. She has DM type II, hypertension, hyperlipidemia, chronic kidney disease stage IIIb, generalized anxiety disorder/depressio n is here for annual physical. She also [...] lisinopril, atorvastatin and Zetia. 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 Foot care discussed with the patient. EKG is normal sinus rhythm at 71 bpm with no acute ST or T wave changes, no bundle-branch blocks, normal intervals. Hyperlipidemia/hyp ertension. Blood pressure well controlled and last lipid panel was within reasonable limits on current regimen of lisinopril 40 mg daily,hydrochlorot hiazide 25 mg daily amlodipine 5 mg daily,metoprolol tartrate 50 mg along with atorvastatin 20 and Zetia 10 mg. Generalized anxiety disorder/major depression. Continue on Zoloft 100 mg daily and she is given referral to Dr. Camarillo. Multiple joint osteoarthritis. She takes nhra-ymp-bizjysk Tylenol and also takes tizanidine 2 mg [...] discussed with the patient. Plan Of Treatment Medication Medication Name Sig Start Date Stop Date Notes Lantus SoloStar 100 UNIT/ML 10 units Sub cutaneous once a day for 30 days 12/13/2024 Pending Test Test Name Order Date MAMMOGRAM, SCREENING 12/13/2024 Bone Density 12/13/2024 Future Test Test Name Order Date Hemoglobin [id number] 12/13/2024 Referrals Referral Date Details 12/13/2024 12/13/2024, EUN- Dr Moy Next Appt Details Follow Up: 6 Months, Reason: Provider Name:POSADAS A GUL , 06/14/2025 09:45:00 AM, [address] [address], [place], [address], Progress Notes * Amado BOSWELLaDOB: [birth year] (69 yo F)Acc No.[id number]:12/13/2024 Progress Note Patient:?Ben BOSWELL Provider:?KATHARINA ANGEL MD :[id number]???Age:69 Y???Sex:Female D ate:12/13/2024 Address:[address] [place], [place] [id number] Subjective: * Chief Complaints: * ???Medicare Wellness * HPI: ???Internal Medicine:?Mrs. Boswell is a 68-year-old lady with hypertension, hyperlipidemia, CKD stage 3, diabetes mellitus type 2, anxiety/depression and polyosteoarthritis and she follows up with [facility] here for [facility]. She checks her blood sugar at home and they are usually running high.? She tries to be compliant with low calorie diet.? Her A1c is 8. She has reported difficulties on walking and she uses a cane to walk all the time. She does not prepare her meals and she needs help on dressing, showering and going to the toilet. She is depressed mostly everyday. She has difficulty sleeping, appetite is good. No symptoms. She has constipation off and on. She denies any other active issues or concerns. ???Depression Screening:?PHQ-9?Little interest or pleasure in doing things?More than half the days ?Feeling down, depressed, or hopeless?More than half the days ?Trouble falling or staying asleep, or sleeping too much?More than half the days ?Feeling tired or having little energy?More than half the days ?Poor appetite or overeating?More than half the days ?Feeling bad about yourself or that you are a failure, or have let yourself or your family down?More than half the days ?Trouble concentrating on things, such as reading the newspaper or watching television?More than half the days ?Moving or speaking so slowly that other people could have noticed; or the opposite, being so fidgety or restless that you have been moving around a lot more than usual?More than half the days ?Thoughts that you would be better off or of hurting yourself in some way?Not at all ?Total Score?16 ?Interpretation?Moderately Severe Depression ???Patient Care Team:?-?No Providers on Record.?Medicare Annual Visit:?Type of Visit?-?Subsequent Annual Wellness Visit ?Language or Communication barrier addressed?-?Yes ?Health Risk Assessment?DEMOGRAPHICS?- ?- How old are [age]??[age] ?- How would you best describe your ethnicity??__ ?- How would you describe your marital status?- How would you describe your employment status??Retired ?- How many children do you have??five ?RISK ASSESSMENT?- ?- Do you currently use tobacco products??No ?- Have you ever used tobacco products??No ?- What type of tobacco do you use or have you used??__ ?- (If cigarette smoker) How long have you smoked??__ ?- (If cigarette smoker) How many cigarettes do you smoke per day??__ ?- How many alcoholic beverages (i.e. 1oz hard liquor, one glass of wine, one bottle of beer) do you drink daily, on average??None ?- Have you ever felt the need to cut down on drinking??No ?- Have people annoyed you with criticism of your drinking??No ?- Do you or have you felt guilty for drinking??No ?- Have you ever felt the need to drink first thing in the morning to steady your nerves or to get rid of a hangover??No ?- How often do you exercise??Never ?- How vigorously can you exercise??Not at all ?- How often do you use seatbelts??Always ?- In the past month, how often have you had sex??__ ?- Do you have any significant difficulties or dysfunction during sex??No, never ?- How many partners do you have??__ ?- How often do you experience pain with sex??Never ?- How often do you use condoms during sex??Always ?MENTAL HEALTH ASSESSMENT?- ?- In the past two weeks, how often have you felt depressed, down or hopeless??Never ?- In the past month, how often have you felt anxious or stressed??Never ?- What is your average level of daily stress??None ?- In the past two weeks, how often have you felt a lack of pleasure or interest in doing things??Never ?- In the past two weeks, how often have you had difficulty falling asleep or episodes of sleeping too long??Never ?- In the past two weeks, how often have you had a lack of energy??Never ?- In the past two weeks, how often have you had feelings of being better off or thoughts of harming yourself??Never ?- Have you ever attempted to harm yourself??No ?GENERAL HEALTH/PAIN ASSESSMENT?- ?- In the past month, how often did you experience pain??Daily ?- In the past month, how much has pain affected your ability to work??A little ?- In the past month, how much has pain affected your ability to walk??to a moderate degree ?- In the past month, how much has pain affected your relationship with other people??Not at all ?- On a scale of 1-10, how bad would you rate your average daily pain??5 ?- How would you describe the ease with which you can prepare your own food??Very difficult ?- How would you describe the ease with which you can bathe or clean yourself??Very difficult ?- How would you describe the ease with which you can dress yourself??Very difficult ?- How hard is it to use the toilet by yourself??Somewhat hard ?- How would you describe the ease with which you can do your own shopping??I can't do my own shopping ?- How would you describe the ease with which you can get around your house??A little difficult ?- How would you describe your ability to pay your bills??Very poor ?- How would you describe your ability to plan your daily and monthly budgets??Very poor ?- How would you describe your ability to do routine housework??Poor ?HOME SAFETY/ASSISTANCE?- ?- Do you feel like you are safe in your current home??Yes ?- How many times have you fallen in your home??Never ?- How much would you need to change your living circumstances to feel safe??A significant amount ?- Do you feel that living somewhere else would be good for you??No ?- How much help do you feel you need at home??Daily assistance ?- How much does your family help with daily or routine chores??A significant amount ?Immunization Status addressed?-?Yes ?Depression Screening?-?PHQ9 done ?Vision Screening?-?Not done ?Hearing Screening?-?Not done ?Fall Risk and Home Safety?-?Negative, no falls in the past year, no difficulty walking, or getting out of bed or chair ?Medication evaluation and reconcilliation performed?Yes ?Vision screening recommended?Yes ?Literature offered to the patient?Yes ?Referrals?physical therapy offered for gait balance and mobility evaluation, fall prevention home evauation offered, DEXA screening offered ?Get Up and Go Evaluation?under 20 seconds ?Psychosocial Risks?-?No overt psychosocial risks shown, observed, or mentioned ?Behavioral Risks?-?Patient seems very well adjusted and no behavorial issues noted ?Activities of daily living?-?Not impaired ?Cognitive Screening?-?No overt cognitive deficiency is apparent by direct observation * ROS:?General/Constitutional:?Overall health?Good.?Change in appetite?denies.?Chills?denies.?Fever?denies.?Night sweats?denies.?Sleep disturbance?denies.?Weight gain?denies.?Weight loss?denies.?Neurologic:?Difficulty speaking?denies.?Dizziness?denies.?Gait abnormality?denies.?Headache?denies.?Loss of strength?denies.?Memory loss?denies.?Seizures?denies.?Tingling/Numbness?denies .?Ophthalmologic:?Blurred vision?denies.?Discharge?denies.?Dry eye?denies.?Red eye?denies.?ENT:?Change in Voice?Denies.?Cold Symptoms?Denies.?Cough?Denies.?Dizziness?Denies.?Nasal Congestion?Denies.?Otalgia?Denies.?postnasal drip?Denies.?Blocked ear?denies.?Nosebleed?denies.?Snoring?denies.?Cardiovascular:?Diaphoresis?Denies.?Pedal Edema?Denies.?PND (Paroxsymal nocturnal dyspnea)?Denies.?Chest pain?denies.?Difficulty laying flat?denies.?Dyspnea on exertion?denies.?Heart murmur?denies.?Orthopnea?denies.?Respiratory:?Snoring?denies.?Asthma?denies.?Cough?denies.?Shortness of breath with exertion?denies.?Sputum production?denies.?Wheezing?denies.?Gastrointestinal:?Change in bowel habits?denies.?Constipation?denies.?Decreased appetite?denies.?Diarrhea?denies.?Heartburn?denies.?Nausea?denies.?Vomiting?tan es.?Musculoskeletal:?tingling/numbness?Denies.?myalgias?Denies.?Joint Swelling?Denies.?extremeties?normal.?Arthritis?,admits.?Back problems?,admits.?Carpal tunnel?denies.?Joint stiffness?denies.?Muscle aches?denies.?Endocrine:?Bowel Changes?Denies.?Breast Discharge?Denies.?poor libido?Denies.?Cold intolerance?denies.?Excessive sweating?denies.?Excessive thirst?denies.?Frequent urination?denies.?Thyroid problems?denies.?Skin:?Bruising?Denies.?Eczema?denies.?Hair changes?denies.?Rash?denies.?Skin lesion(s)?denies.?Psychiatric:?Anxiety?denies.?Depressed mood?denies.?Difficulty sleeping?denies.?Nervous breakdown?denies.?Substance abuse?denies.?Urology:?abnormal menstrual bleeding?denies.?blood in urine?denies.?burning on urination?denies.?difficulty urinating?denies.?discharge?denies.?dysuria?denies.? * Medical History:? * Surgical History:?hysterecto my * Hospitalization/Major Diagno stic Procedure:? * Family History:?Father: diag nosed with Diabetes.?Mother: diagnosed with Hypertension, Heart Disease.?Siblings: diagnosed with Diabetes, Hypertension.? father - CKD, brothers - DM2, hypertension. * Social History:?Tobacco Use:?Tobacco Use/Smoking?Are you a?nonsmoker ???Drugs/Alcohol:?Alcohol Screen (Audit-C)?Did you have a drink containing alcohol in the past year??No ?Points?0 ?Interpretation?Negative ???Miscellaneous:?Living with: family. ?Occupation: Retired, Teacher. ???non-smoker Not drink alcohol. * Medications:?TakingAspirin 8 1 MG Tablet Chewable 1 tablet Orally Once a day Metoprolol Tartrate 50 MG Tablet 1 tablet with food Orally Twice a day hydroCHLOROthiazide 25 MG Tablet 1 tablet in the morning Orally Once a day Vitamin D (Ergocalciferol) 1.25 MG (12079 UT) Capsule TAKE 1 CAPSULE BY MOUTH ONE TIME PER WEEK tiZANidine HCl 2 MG Tablet 1 tablet as needed Orally Three times a day Fluticasone Propionate 50 MCG/ACT Suspension USE 1 SPRAY INTO EACH NOSTRIL EVERY DAY FOR 30 DAYS FreeStyle Lite Test - Strip 1 strip once a day Dx: E11.8 Sertraline HCl 25 MG Tablet TAKE 1 TABLET BY MOUTH EVERY DAY Trulicity 3 MG/0.5ML Solution Pen-injector as directed pre filled suryng Subcutaneous once a week amLODIPine Besylate 5 MG Tablet 1 tablet Orally Once a day Ezetimibe 10 MG Tablet 1 tablet Orally Once a day Diclofenac Sodium 1 % Gel as directed Externally daily Tradjenta 5 MG Tablet TAKE 1 TABLET BY MOUTH EVERY DAY Sertraline HCl 100 MG Tablet TAKE 1 TABLET BY MOUTH EVERY DAY FOR 30 DAYS Vitamin D3 25 MCG (1000 UT) Tablet TAKE 1 TABLET BY MOUTH EVERY DAY FOR 90 DAYS Atorvastatin Calcium 20 MG Tablet TAKE 1 TABLET BY MOUTH EVERY DAY FOR 30 DAYS Lisinopril 40 MG Tablet TAKE 1 TABLET BY MOUTH EVERY DAY FOR 30 DAYS Taking Aspirin 81 MG Tablet Chewable 1 tablet Orally Once a day Taking Metoprolol Tartrate 50 MG Tablet 1 tablet with food Orally Twice a day Taking hydroCHLOROthiazide 25 MG Tablet 1 tablet in the morning Orally Once a day Taking Vitamin D (Ergocalciferol) 1.25 MG (28433 UT) Capsule TAKE 1 CAPSULE BY MOUTH ONE TIME PER WEEK Taking tiZANidine HCl 2 MG Tablet 1 tablet as needed Orally Three times a day Taking Fluticasone Propionate 50 MCG/ACT Suspension USE 1 SPRAY INTO EACH NOSTRIL EVERY DAY FOR 30 DAYS Taking FreeStyle Lite Test - Strip 1 strip once a day Dx: E11.8 Taking Sertraline HCl 25 MG Tablet TAKE 1 TABLET BY MOUTH EVERY DAY Taking Trulicity 3 MG/0.5ML Solution Pen-injector as directed pre filled suryng Subcutaneous once a week Taking amLODIPine Besylate 5 MG Tablet 1 tablet Orally Once a day Taking Ezetimibe 10 MG Tablet 1 tablet Orally Once a day Taking Diclofenac Sodium 1 % Gel as directed Externally daily Taking Tradjenta 5 MG Tablet TAKE 1 TABLET BY MOUTH EVERY DAY Taking Sertraline HCl 100 MG Tablet TAKE 1 TABLET BY MOUTH EVERY DAY FOR 30 DAYS Taking Vitamin D3 25 MCG (1000 UT) Tablet TAKE 1 TABLET BY MOUTH EVERY DAY FOR 90 DAYS Taking Atorvastatin Calcium 20 MG Tablet TAKE 1 TABLET BY MOUTH EVERY DAY FOR 30 DAYS Taking Lisinopril 40 MG Tablet TAKE 1 TABLET BY MOUTH EVERY DAY FOR 30 DAYS Not-TakingClotrimazole 1 % Cream 1 application Externally Twice a day Not-Taking Clotrimazole 1 % Cream 1 application Externally Twice a day DiscontinuedBydureon BCise 2 MG/0.85ML Auto-injector INJECT 2 MG SUBCUTANEOUS ONCE A WEEK 90 DAYS Medication List reviewed and reconciled with the patientDiscontinued Bydureon BCise 2 MG/0.85ML Auto- injector INJECT 2 MG SUBCUTANEOUS ONCE A WEEK 90 DAYS Medication List reviewed and reconciled with the patient * Allergies:?N.K.D.A.no[Allerg ies Verified] Objective: * Vitals:?Temp:97.3F, Oxygen s at %:98%, HR:80/min, BP:130/80mm Hg, Wt:175.2lbs, BMI:33.1Index, Ht: 61 in. * ???Past Orders: ???Lab:Hemoglobin [id number] (Order Date - 06/12/2024) (Collection Date & Time - 12/11/2024 10:57 AM) ? Value Reference Range ?Hemoglobin A1c/ Hemoglobin total 8.0 H 4.8-5.6 - % ???Lab:Albumin/Creatinine Ra oumar,[id number] (Order Date - 06/12/2024) (Collection Date & Time - 12/11/2024 10:57 AM) ? Value Reference Range ?Creatinine, Urine 113.6 No t Estab. - mg/dL ?Albumin, Urine 218.3 Not E stab. - ug/mL ?Alb/Creat Ratio 192 H 0-29 - mg/g creat ???Lab:Comp. Metabolic Panel [id number] (Order Date - 06/12/2024) (Collection Date & Time - 12/11/2024 10:57 AM) ? Value Reference Range ?Glucose 189 H 70-99 - mg/d L ?BUN 35 H 8-27 - mg/dL ?Creatinine 1.52 H 0.57-1.00 - mg/dL ?BUN/Creatinine Ratio 23 12-28 - ?Sodium 140 134-144 - mmo l/L ?Potassium 5.1 3.5-5.2 - mmol/L ?Chloride 104 96-106 - mm ol/L ?Carbon Dioxide, Total 21 20-29 - mmol/L ?Calcium 9.9 8.7-10.3 - m g/dL ?Protein, Total 7.1 6.0-8 .5 - g/dL ?Albumin 4.3 3.9-4.9 - g/ dL ?Globulin, Total 2.8 1.5- 4.5 - g/dL ?Bilirubin, Total 0.4 0.0 -1.2 - mg/dL ?Alkaline Phosphatase 128 H 44-121 - IU/L ?AST (SGOT) 17 0-40 - IU /L ?ALT (SGPT) 19 0-32 - IU /L ?eGFR 37 L >59 - mL/min/1. 73 ???Lab:Lipid [id number] (O rder Date - 06/12/2024) (Collection Date & Time - 12/11/2024 10:57 AM) ? Value Reference Range ?Cholesterol, Total 157 1 00-199 - mg/dL ?Triglycerides 165 H 0-149 - mg/dL ?HDL Cholesterol 57 >39 - mg/dL ?VLDL Cholesterol Deric 28 5-40 - mg/dL ?LDL Chol Calc (NIH) 72 0-99 - mg/dL ???Lab:MICROALBUMIN, URINE ( Order Date - 02/10/2023) (Collection Date & Time - 02/10/2023 09:06 AM) ? Value Reference Range ?MICRO-ALBUMIN 146.6 H (<20) - MG/L ?MALB/CREAT RATIO 245.2 H (0- 20) - MG/GM ?URINE CREAT FOR MICRO ALBUMIN 59.8 - MG/DL * Examination: ???Diabetic Foot Exam: ?Appearance?normal.?Light Touch Sensation?normal.?Sense of Vibration?normal.?Pulse: Posterior Tibial?normal.?Pulse: Dorsal Pedis?2+.?Hammer Toe?negative.?Tinea Pedis?negative.?Skin Changes?normal.? Assessment: * Assessment: 1.?Encounter for general rachel lt medical examination without abnormal findings - Z00.00 (Primary)???2.?Type 2 diabetes mellitus with unspecified complications - E11.8???3.?Essential (primary) hypertension - I10???4.?Mixed hyperlipidemia - E78.2???5.?Chronic kidney disease, stage 3b - N18.32???6.?Age-related osteoporosis without current pathological fracture - M81.0???7.?Other obesity due to excess calories - E66.09???8.?Dietary counseling and surveillance - Z71.3??? is 69 years old Turkish speaking lady is accompanied by her daughter who is interpreting for her.? She has DM type II, hypertension, hyperlipidemia, chronic kidney disease stage IIIb, generalized anxiety disorder/depression is here for annual physical.? She also have significant arthritis in multiple joints.? Plan is as follows DM type II.? Last A1c is 8 and her goal hemoglobin A1c is preferably under 7.? She is currently on Trulicity 3 mg every weekly and Tradjenta 5 mg daily.? Because of chronic kidney disease she cannot be on any other medications.? We started her on Lantus 10 units daily at bedtime and increase by 2 units every 3 days for a goal blood sugars of 130 in the morning and postprandial less than 180.? She is on lisinopril, atorvastatin and Zetia.? She is seen planer mill grader in the past 1 year.? Foot care discussed with the patient. EKG is normal sinus rhythm at 71 bpm with no acute ST or T wave changes, no bundle-branch blocks, normal intervals. Hyperlipidemia/hypertension.? Blood pressure well controlled and last lipid panel was within reasonable limits on current regimen of lisinopril 40 mg daily,hydrochlorothiazide 25 mg daily amlodipine 5 mg daily,metoprolol tartrate 50 mg along with atorvastatin 20 and Zetia 10 mg. Generalized anxiety disorder/major depression.? Continue on Zoloft 100 mg daily and she is given referral to Dr. Camarillo. Multiple joint osteoarthritis.? She takes mfrl-hdl-wzsdczx Tylenol and also takes tizanidine 2 mg 1 tablet as needed.? She uses a cane to walk.? She needs help with activities of daily living as mentioned above. Chronic kidney disease stage IIIb.? She is stable at this point.? Avoid NSAIDs and she does not appear to be in volume overload. Obesity.? Complications of obesity discussed with the patient and advised to decrease high calorie foods and try to lose a pound and a half week.? Unfortunately she cannot do much exercise.? Consider physical therapy. We will do referral for mammogram and bone density study.? We will do Cologuard for her. She declines vaccination. She is full code and her daughter Chas is her healthcare proxy and MOLST form discussed with the patient. Plan: * Treatment: 2.?Type 2 diabetes mellitus with unspecified complications? Start Lantus SoloStar Solution Pen-injector, 100 UNIT/ML, 10 units, Subcutaneous, once a day, 30 days, 5, Refills 6.?LAB: Hemoglobin [id number] (Ordered for 12/13/2024) 3.?Age-related osteoporosis without current pathological fracture?Imaging: Bone Density 4.?Others? Referral To:Psychiatry ?Reason:EUN- Dr Moy * Procedure Codes:?G0439 ANNUA L WELLNESS VST; PPS SUBSQT [id number] ELECTROCARDIOGRAM, [id number] HG A1C LEVEL LT 7.0%1123F ACP DISCUSS/DSCN MKR [id number] Scrn patricia perf rslts [id number] COLORECTAL CA SCREEN DOC REV, Modifiers: 8P G8417 BMI >=30 CALCUATE [id number] NEG SCR D PT NOT ELIG F/U/PLN [id number] ELDER MALTX SCR DOC NEG NO F/U [id number] Pt scrn tbco id as non [id number] MOST RECENT SYSTOLIC BP < 140MM [id number] MOST RECENT DIASTOLIC BP < 90MM [id number] NORMAL BP READING DOC F/U NOT RQR * Preventive Medicine:?COVID (2) 2020 DECLINES FLU PCV 13 12/2016 TDAP 09/2022 BMD NO COLONOSCOPY DECLINES? EYE EXAM [facility]? BAKERY TECHNICIAN [facility]? MAMMOGRAM [facility] 12/2022. * Follow Up:?6 Months * * Sign off status: Completed true * Provider:?KATHARINA ANGEL MD Date:?12/13 Generated for Nelly castro/Abhay/Ibethitting on:?12/26/2024 12:37 PM EST History and Physical Notes * HPI (History of Present Illness) Category Sub-Category Detail Notes Category Not es Depression Screening PHQ-9 Little inte rest or pleasure in doing things: More than half the days Feeling down, depressed, or hopeless: Mo re than half the days Trouble falling or staying a sleep, or sleeping too much: More than half the days Feeling tired or having little energy: M ore than half the days Poor appetite or overeating: More than h group home the days Feeling bad about yourself o r that you are a failure, or have let yourself or your family down: More than half the days Trouble concentrating on thi ngs, such as reading the newspaper or watching television: More than half the days Moving or speaking so slowly that other people could have noticed; or the opposite, being so fidgety or restless that you have been moving around a lot more than usual: More than half the days Thoughts that you would be b katie off or of hurting yourself in some way: Not at all Total Score: 16 Interpretation: Moderately Severe Depres donal Medicare Annual Visit Type of Visit -: Subsequent Annual [facility] Visit Language or Communication barrier addressed -: Y es Health Risk Assessment DEMOGRAPHICS: - - How old are [age]?: [age] - How would you best describe your [facility]?: __ - How would you describe your marital st atus?: - How would you describe your employment status?: Retired - How many children do you have?: five RISK ASSESSMENT: - - Do you currently use tobacco products? : No - Have you ever used tobacco products?: No - What type of tobacco do you use or hav e you used?: __ - (If cigarette smoker) How long have yo u smoked?: __ - (If cigarette smoker) How many cigaret padmini do you smoke per day?: __ - How many alcoholic beverag es (i.e. 1oz hard liquor, one glass of wine, one bottle of beer) do you drink daily, on average?: None - Have you ever felt the need to cut ray n on drinking?: No - Have people annoyed you with criticism of your drinking?: No - Do you or have you felt guilty for dri nking?: No - Have you ever felt the nee d to drink first thing in the morning to steady your nerves or to get rid of a hangover?: No - How often do you exercise?: Never - How vigorously can you exercise?: Not at all - How often do you use seatbelts?: Alway s - In the past month, how often have you had sex?: __ - Do you have any significan t difficulties or dysfunction during sex?: No, never - How many partners do you have?: __ - How often do you experience pain with sex?: Never - How often do you use condoms during se x?: Always MENTAL HEALTH ASSESSMENT: - - In the past two weeks, how often have you felt depressed, down or hopeless?: Never - In the past month, how oft en have you felt anxious or stressed?: Never - What is your average level of daily st ress?: None - In the past two weeks, how often have you felt a lack of pleasure or interest in doing things?: Never - In the past two weeks, how often have you had difficulty falling asleep or episodes of sleeping too long?: Never - In the past two weeks, how often have you had a lack of energy?: Never - In the past two weeks, how often have you had feelings of being better off or thoughts of harming yourself?: Never - Have you ever attempted to harm yourse lf?: No GENERAL HEALTH/PAIN ASSESSMENT: - - In the past month, how often did you e xperience pain?: Daily - In the past month, how muc h has pain affected your ability to work?: A little - In the past month, how muc h has pain affected your ability to walk?: to a moderate degree - In the past month, how muc h has pain affected your relationship with other people?: Not at all - On a scale of 1-10, how ba d would you rate your average daily pain?: 5 - How would you describe the ease with which you can prepare your own food?: Very difficult - How would you describe the ease with which you can bathe or clean yourself?: Very difficult - How would you describe the ease with which you can dress yourself?: Very difficult - How hard is it to use the toilet by yo urself?: Somewhat hard - How would you describe the ease with which you can do your own shopping?: I can't do my own shopping - How would you describe the ease with which you can get around your house?: A little difficult - How would you describe your ability to pay your bills?: Very poor - How would you describe you r ability to plan your daily and monthly budgets?: Very poor - How would you describe your ability to do routine housework?: Poor HOME SAFETY/ASSISTANCE: - - Do you feel like you are safe in your current home?: Yes - How many times have you fallen in your home?: Never - How much would you need to change your living circumstances to feel safe?: A significant amount - Do you feel that living somewhere else would be good for you?: No - How much help do you feel you need at home?: Daily assistance - How much does your family help with daily or routine chores?: A significant amount Immunization Status addressed -: Yes Vision Screening -: Not done Depression Screening -: PHQ9 done Hearing Screening -: Not done Fall Risk and Home Safety -: Negative, n o falls in the past year, no difficulty walking, or getting out of bed or chair Medication evaluation and reconcilliatio n performed: Yes Vision screening recommended: Yes Literature offered to the patient: Yes Referrals: physical therapy offered for gait balance and mobility evaluation, fall prevention home evauation offered, DEXA screening offered Get Up and Go Evaluation: under 20 secon ds Psychosocial Risks -: No overt psychoso cial risks shown, observed, or mentioned Behavioral Risks -: Patient seems gera y well adjusted and no behavorial issues noted Activities of daily living -: Not impaired Cognitive Screening -: No overt cognitiv e deficiency is apparent by direct observation Patient Care Team - No Providers on Record Internal Medicine Mrs. Dione bowles is a 68-year-old lady with hypertension, hyperlipidemia, CKD stage 3, diabetes mellitus type 2, anxiety/depression and polyosteoarthritis and she follows up with [facility] here for AWV. She checks her blood sugar at home and they are usually running high. She tries to be compliant with low calorie diet. Her A1c is 8. She has reported difficulties on walking and she uses a cane to walk all the time. She does not prepare her meals and she needs help on dressing, showering and going to the toilet. She is depressed mostly everyday. She has difficulty sleeping, appetite is good. No symptoms. She has constipation off and on. She denies any other active issues or concerns. Examination Category Sub-Category Detail Notes Category Not es Diabetic Foot Exam Appearance normal Light Touch Sensation normal Sense of Vibration normal Pulse: Posterior Tibial normal Pulse: Dorsal Pedis 2+ Hammer Toe negative Tinea Pedis negative Skin Changes normal Consultation Request Notes Referral Date Referring Provider Referred Provider Not es 12/13/2024 KATHARINA ANGEL GAD- Dr Gardner er
== END 2024-12-26 11:59 | disposition home or self-care (01) ==
PROVIDERS: PCP Hospitalist; Visit Provider Orthopaedic Surgery
DX: S52.501A Unspecified fracture of the lower end of right radius, initial encounter for closed fracture (principal); S52.611A Displaced fracture of right ulna styloid process, initial encounter for closed fracture; W00.0XXA Fall on same level due to ice and snow, initial encounter
CPT/HCPCS: 25600; 99204

== ENCOUNTER → 2024-12-26 10:36 | Outpatient (BNV) | payer MEDICARE, MEDICAID, SELFPAY | PROVIDERS: Visit Provider Radiology Diagnostic Radiology | DX: S52.501A Unspecified fracture of the lower end of right radius, initial encounter for closed fracture (principal); S52.611A Displaced fracture of right ulna styloid process, initial encounter for closed fracture; W00.0XXA Fall on same level due to ice and snow, initial encounter | CPT/HCPCS: 73110 ==

== ENCOUNTER 2025-01-17 11:14 | Outpatient (REF) | payer MEDICARE, MEDICAID, SELFPAY ==
--- NOTE | ~2025-01-17 | XR_ITS ---
EXAMINATION: XR WRIST, RIGHT CLINICAL INFORMATION: M25.531 - Pain in right wrist COMPARISON: December 26, 2024. TECHNIQUE: PA, lateral, and oblique views of the right wrist. FINDINGS: There is sclerosis at the ages of the transversely oriented fracture through the distal metaphysis of the radius with a vertically oriented fracture into the articular surface. No callus formation. No gross malalignment. Osteopenia versus osteoporosis. XR/XR wrist RT min 3V IMPRESSION: No gross healing in the intra-articular distal metaphysis and epiphysis fracture, right radius. Electronically signed by: Dave Vieira MD 01/18/2025 08:29 AM EDT
== END 2025-01-17 11:15 | disposition home or self-care (01) ==
LOC: HO.HOSX 11:14
PROVIDERS: Visit Provider Orthopaedic Surgery
DX: M25.531 Pain in right wrist (principal); S52.501D Unspecified fracture of the lower end of right radius, subsequent encounter for closed fracture with routine healing; S52.611D Displaced fracture of right ulna styloid process, subsequent encounter for closed fracture with routine healing; R20.0 Anesthesia of skin; R20.2 Paresthesia of skin
CPT/HCPCS: 73110; 99212

== ENCOUNTER 2025-01-17 15:00 | Outpatient (AMB) | payer MEDICARE, MEDICAID, SELFPAY ==
--- NOTE | 2025-01-17 15:02 | MHC.OFFVIS ---
Vital Signs 01/17/25 15:21 Height 5 ft 2 in Weight 173 lb BMI 31.6 Intake Visit Reasons: RT distal radial and ulnar styloid , 12/20/24-w/xr Intake Note: Ben is a 69 year old right hand dominant female who presents today for a follow up visit of her right distal radius fracture s/p fall DOI: 12/20/24. At her last visit she was placed in a short arm cast, to be worn for the next 3 weeks. Cast removed and x-rays updated. Patient reports her pain has improved however she continues to have pain located at the ulnar and dorsal aspect of wrist. Allergies No Known Allergies [No Known Allergies*] Allergy (Verified 01/17/25 15:22) HPI HPI RT distal radial and ulnar styloid , 12/20/24-w/xr: Details: Ben is a 69 year old right hand dominant Portuguese speaking woman who returns for her right distal radius & ulnar styloid fractures, S/P fall, DOI: 12/19/24. She says she is doing well overall, with some increased pain once her cast was removed today. She complains of some numbness in the small and ring fingers. She denies any elbow pain. [facility] Surgical History Hx of removal of cyst Social History Alcohol intake: never Patient Tobacco Use Status: Never used Tobacco Current occupational status: unemployed Current occupation: right hand dominant Review of Systems Const All systems reviewed & are unremarkable except as noted in HPI and below Physical Exam Vital Signs: BMI result Body Mass Index 31.6 Const General: no acute distress and alert Orientation/consciousness: patient oriented x3 Neuro General: patient oriented x3 Extrem Other: Evaluation of Right Upper Extremity: The patient is alert, oriented, and in no acute distress She has some numbness in the small finger today. She says that it is constant. She has more occasional numbness and tingling in her right thumb No intrinsic or thenar wasting ROM: With encouragement She can bring her fingers closed to a weak fist and back into full extension She had 70 degrees of pronation With encouragement I got her to about 50 degrees of supination Though she was apprehensive about me touching her fracture, Her fracture was nontender today. UJ stable Resolved swelling & ecchymosis Radiographs: 3 views of the right wrist were taken and viewed by me today in clinic. They show a distal radius fracture, intra-articular. There is a transverse component to the fracture, and an intra-articular split at the scapholunate interval, with ~5 degrees apex volar angulation. and an ulnar styloid base fracture. Satisfactory fracture alignment and good evidence of interval bony healing. Psych Appearance: grossly normal Affect: normal affect Attitude: cooperative Assessment & Plan Assessment & Plan (1) Distal radius fracture, right: Code(s): S52.501A - Unspecified fracture of the lower end of right radius, initial encounter for closed fracture Category: Medical (2) Fracture of right ulnar styloid: Code(s): S52.611A - Displaced fracture of right ulna styloid process, initial encounter for closed fracture Category: Medical (3) Numbness and tingling in right hand: Code(s): R20.0 - Anesthesia of skin; R20.2 - Paresthesia of skin Category: Medical Plan Assessment & Plan: 1. Right distal radius fracture, comminuted, intra-articular, minimally displaced From a fall, DOI: 12/19/24 2. Right ulnar styloid base fracture From a fall, DOI: 12/19/24 These fractures were managed non operatively I educated her and her son about this condition She was fitted for a velcro wrist splint, to be worn for the next 4 weeks. She will remove this when at home at rest. In 2 week she can discontinue this at home, and wear it only when out of the house with daily activities. I discussed activity modifications, she is to lift nothing heavier than a cellphone for the next 4 weeks. She should avoid any impact activities or falls. She will perform gentle ROM exercises at home, out of her splint She will follow up in 4 weeks for a ROM check, this can be done with Nii, with X-rays, 3V R wrist, OOP. Consider possible referral to OT hand therapy at her next appointment. 3. Right hand numbness In the ulnar nerve distribution Symptoms intermittent & occasional This seems to have began following her distal radius fracture We will monitor this and manage this conservatively at this time If her symptoms do not improve in the next month, we may consider ordering a NCS to assess for peripheral nerve compression Scribed for Addie Riley, MD by Cliff Ryan, medical laboratory technical officer, on 01/17/25 at 3:25 PM, EST. Orders: Orders XR wrist RT min 3V Today M25.531 - Pain in right wrist Coding Level of Care Code Global (00859) Diagnoses Distal radius fracture, right S52.501A Fracture of right ulnar styloid S52.611A Numbness and tingling in right hand R20.0; R20.2
[2025-01-17 15:21] VITALS: BMI 31.6
--- OUTSIDE RECORDS SUMMARY | 2025-01-17 17:08 | XMS_ITS | Clinical Summary ---
Author Organization [facility] Address [address] [place] [address] Care Team Providers Care Commercial Lending Vice President Name Role Phone Vandana Goode NP Primary Care Provider [phone] Source Comments PLEASE NOTE, if this patient [...] complication, without long-term current use of insulin ([facility]) 1 Strip as needed for high blood sugar Dx.: E11.9 Use tid as directed for dm 100 Each 11 09/19/20 18 Active blood-glucose meter (FREESTYLE LITE METER) monitoring kitIndications:T ype 2 diabetes mellitus without complication, without long-term current use of insulin ([facility]) as needed for blood glucose monitoring 1 Each 09/19/20 18 Active lancetsIndicatio ns:Type 2 diabetes mellitus without complication, without long-term current use of insulin ([facility]) Freestyle lite lancets Dx.: E11.9 Use tid [...] 08/24/2019 Overview (08/24/2019): 08/19/19 - seen at [facility] ED c/o vaginal bleeding. Pelvis U/S: [...] episode 12/21/17 01/11/2018 Overview (01/11/2018): 12/21-12/22/17 - [facility] for episode of syncope/ unreponsivenss following an emotional conversation with son who is in [place]. She had NIH score of 3 initially for being nonverbal but otherwise normal. CT and CTA h/n of head neg, tele monitoring without any cardiac arrthymias. Discharged next day. Outpatient ECHO and Holter monitor recommended Pap smear of cervix declined 12/30/2016 Colonoscopy refused 12/30/2016 Non-Japanese speaking patient 10/13/2016 Non compliance with medical [...] c3-4 foramen. Coronary artery disease invo lving [place] heart with angina pectoris ([facility] [place] [facility] [...] 06/02/2022, 08/0 12/2021, 12/15/2021, Additional history exists Meo-JDOFO-91 ( season) 2024 021, 12/28/2020 Imm-Influenza (#1) [...] GLYCATED HEMOGLOBIN A1C 8.4(H) <6.5 % [facility] ESTIMATED AVERAGE GLUCOSE 194 mg/dL [facility] Blood Blood / Unknown 01/14/2021 1 2:00 PM EDT 01/14/2021 4:23 PM EDT [facility] - 01/14/2021 8:07 PM EDT [employer], [place] [address] Camp Director - Leandra Anderson MD PT ID [id number] ORD# [id number] Melissa Reyes [facility] - BLOOD DRAW Final Re sult Performing Organization Address City/[facility]/ZIP Co de Phone Number [address] [address], [place] [phone] * (ABNORMAL) LIPID PANEL (01/14/2021 12:00 PM EDT) CHOLESTEROL 168 0 - 200 mg/dL [facility] TRIGLYCERIDES 198(H) 0 - 150 mg/dL [facility] HDL CHOLESTEROL 62 >40 mg/dL [facility] LDL CALCULATED 67 0 - 100 mg/dL [facility] TC-HDLC RATIO 2.7 0 - 4.4 mg/dL [facility] Blood Blood / Unknown 01/14/2021 1 2:00 PM EDT 01/14/2021 4:23 PM EDT Narrative [facility] - 01/14/2021 5:10 PM EDT [facility] [employer], [place] [address] Camp Director - Leandra Anderson MD PT ID [id number] ORD# [id number] Melissa Reyes [facility] - BLOOD DRAW Final Re sult Performing Organization Address [facility]/ZIP Co de Phone Number [address] [address], * (ABNORMAL) COMPRE METAB PANEL (01/14/2021 12:00 PM EDT) GLUCOSE 260(H) 70 - 100 mg/dL [facility] Comment:Reference range appl icable to fasting specimens only BUN 54(H) 5 - 25 mg/dL [facility] CREAT 1.49(H) 0.5 - 1.1 mg/dL [facility] GLOMERULAR FILTRATION RATE 35 [facility] Comment: If patient is -Czech, multiply result by 1.21 Chronic Kidney Disease: < 60 ml/min/1.73 square meters Kidney Failure: < 15 ml/min/1.73 square meters SODIUM 137 135 - 145 mEq/L [facility] POTASSIUM 4.1 3.5 - 5.5 mmol/L [facility] CHLORIDE 104 96 - 110 mmol/L [facility] CO2 24 21 - 32 mmol/L [facility] ANION GAP 9 3 - 11 [facility] CALCIUM 10.0 8.5 - 10.5 mg/dL [facility] TOTAL PROTEIN 7.6 6.0 - 8.0 G/dL [facility] ALBUMIN 4.0 3.2 - 5.0 G/dL [facility] BILI, TOTAL 0.5 0.0 - 1.4 mg/dL [facility] SGOT 12 10 - 42 U/L [facility] SGPT 28 10 - 60 U/L [facility] ALK PHOS 137(H) 42 - 121 U/L [facility] Blood Blood / Unknown 01/14/2021 1 2:00 PM EDT 01/14/2021 4:23 PM EDT Narrative [facility] - 01/14/2021 5:10 PM EDT [facility], [place] [address] Camp Director - Leandra Anderson MD PT ID [id number] ORD# [id number] Melissa Reyes [facility] - BLOOD [place]RAW [place] [address], * MICROALBUMIN/CREATININE RATIO, URINE, RANDOM (01/14/2021 11:54 AM EDT) CREATININE, RANDOM URINE 113 mg/dL [facility] MICROALBUMIN, RANDOM 15.7 0.0 - 29.0 mg/L [facility] MICROALB/CRE RATIO RANDOM 13.8 0.0 - 30.0 mg/G [facility] Urine Urine specimen / Unknown 01/14/2021 11:54 AM EDT 01/14/2021 4:23 PM EDT Narrative [facility] - 01/14/2021 5:24 PM EDT [facility] [employer], a member of [address] [address] Camp Director - Leandra Anderson MD PT ID [id number] ORD# [id number] Melissa Reyes [facility] - NO BLOOD DRAW Edite d Result - Final [address] [address], * MAMMOGRAM, ABSTRACTED (06/23/2019 8:55 AM EDT) MAMMOGRAM NEGATIVE NEGATIVE Anatomical Region Laterality Modality Other Impressions 06/23/2019 8:55 AM EDT No mammogramic evidence of malignancy BIRADS - 1 negative repeat 1 year Provider [facility] MAM[facility] Final Result * DILATED RETINAL EYE EXAM WITH INTERPRETATION BY AN COUNTRY PRINTER APPRENTICE OR FUSE SPOOLER DOCUMENTED AND REVIEWED (DM)4 (07/21/2018 8:36 AM [...] AM EDT 01/14/2018 10:56 AM EDT Narrative [facility] - 01/14/2018 12:46 PM EDT [facility] [employer] [address] [place] [address] PT ID [id number] ORD# [id number] us Sujey Alfaro PA-C LAB - BLOOD DRAW Edited R esult - Final [facility] [address] [place] [address], from Last 3 Months or Most Recently Relevant to Health Maintenance Insurance [facility] DENTAL [facility] DENTAL MEDICAID MEDICARE - [place] Care Teams Commercial Lending Vice President Relationship Specialty Start Date End Date Vandana Goode NP [address] [place] [address] PCP - General Family Medicine, JOURNEYMAN MACHINIST 08/28/24
--- OUTSIDE RECORDS SUMMARY | 2025-01-17 17:08 | XMS_ITS | Patient Health Record ---
Author Organization [employer] [facility] Address [address] [place] [address] Care Team Providers Care Supervisor Estimator And Drafter Name Role Phone KATHARINA ANGEL Primary Care Provider Allergies No Known Allergies Results Component Value Reference Range Notes Lipid Panel-[id number] Reviewed date:12/13/2024 07:45:56 AM Interpretation: Performing Lab:[facility], [address], Phone - [phone], Director - MDJodry Notes/Report: Cholesterol, Total 157 100-199 mg/dL Triglycerides 165 0-149 mg/dL HDL Cholesterol 57 >39 mg/dL VLDL Cholesterol Deric 28 5-40 mg/dL LDL Chol Calc (NIH) 72 0-99 mg/dL Comp. Metabolic Panel (14)-3 [id number] Reviewed date:12/13/2024 07:46:01 AM Interpretation: Performing Lab:[facility], [address], Phone - [phone], Director - MDJodry Notes/Report: Glucose 189 70-99 [...] ALT (SGPT) 19 0-32 IU/L Albumin/Creatinine Ratio,Uri ne-[id number] Reviewed date:12/13/2024 07:46:09 AM Interpretation: Performing Lab:[facility] [place], [address] [facility], [place], Phone - [phone], Director - MDJodry Notes/Report: Creatinine, Urine 113.6 Not Estab. mg/dL Albumin, Urine 218.3 Not Estab. ug/mL Alb/Creat Ratio 192 0-29 mg/g creat Normal: 0 - 29 Moderately increased: 30 - 300 Severely increased: >300 Hemoglobin [id number] Reviewed date:12/13/2024 07:46:17 AM Interpretation: Performing Lab:[facility] [place], [address] [facility], [place], Phone - [phone], Director - MDJodry Notes/Report: Hemoglobin A1c 8.0 4.8-5.6 % . Prediabetes: 5.7 - 6.4 Diabetes: >6.4 Glycemic control for adults with diabetes: <7.0 Reason For Referral Reason bleeding issues Diagnosis 1 Abnormal uterine and vaginal bleeding, unspecified (N93.9) Referral Organization [facility] Referring Provider First Name [facility] Referring Provider Last Name [facility] Ref[facility] Referred Provider Specialty OB - Gynecol ogy General Notes Please contact the p atient for scheduling Referral Priority Routine Reason EUN- Dr Moy Diagnosis 1 Anxiety disorder, un specified (F41.9) Referral Organization [facility] Referring Provider First Name [facility] Referring Provider Last Name [facility] ed[facility] Referred Provider Specialty Psychiatry General Notes Referral faxed to Dr Moy Psychiatry . Please call patient to schedule.Pedro Christy 12/22/2024 03:08:17 PM > Referral Priority Routine Medications Medication SIG (Take, Route, Frequency, Duration) Notes Start Date End Date Status Lantus SoloStar 100 UNIT/ML 10 units Sub cutaneous once a day for 30 days 12/13/2024 Active FreeStyle Lite Test - 1 strip once a day Dx: E11.8 for 90 days Active Trulicity 3 MG/0.5ML as directed pre rajinder led suryng Subcutaneous once a week for 90 [...] Active Diclofenac Sodium 1 % as directed Outreach Specialist ally daily for 30 days Active hydroCHLOROthiazide 25 MG 1 tablet in th e morning Orally Once a day for 30 days Active Tradjenta 5 MG TAKE 1 TABLET BY GALINDO TH EVERY DAY for 90 Active Vitamin D (Ergocalciferol) 1.25 MG (64506 UT) TAKE 1 CAPSULE BY MOUTH ONE TIME PER WEEK for 28 Active Sertraline HCl 100 MG TAKE 1 TABLET BY M OUTH EVERY DAY FOR 30 DAYS for 30 [...] Lisinopril 40 MG TAKE 1 TABLET BY GALINDO TH EVERY DAY FOR 30 DAYS for 90 Active Sertraline HCl 25 MG TAKE 1 TABLET BY MO UTH EVERY DAY for 30 Active Clotrimazole 1 % APPLY DAILY TO SKIN TO AFFECTED AREA TWICE A DAY FOR 2 WEEKS for 14 Active Immunizations Vaccine Route Administration Date Status [...] Disorder due to type 2 diabetes mellitus (701673357) Type 2 diabetes mellitus with unspecified complications (E11.8) Active confirmed Problem Vitamin D deficiency (34398061) Vitamin D deficiency, unspecified (E55.9) Active confirmed Problem Obesity due to excess calories (172816077) Other obesity due to excess calories (E66.09) Active confirmed Problem Mixed hyperlipidemia (687773705) Mixed hyperlipidemia (E78.2) Active confirmed Problem Mild recurrent major depression (13535767) Major depressive disorder, recurrent, mild (F33.0) Active confirmed Problem Anxiety disorder (104550914) Anxiety disorder, unspecified (F41.9) Active confirmed Problem Essential hypertension (56573847) Essential (primary) hypertension (I10) Active confirmed Problem Constipation (97531606) Constipation, unspecified (K59.00) Active confirmed Problem Polyarthritis (051220667) 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) Active confirmed Problem Degeneration of thoracolumbar intervertebral disc (54833457) Other intervertebral disc degeneration, 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) Active confirmed Problem Age-related osteoporosis (732648772) Age-related osteoporosis without current pathological fracture (M81.0) Active confirmed Problem Chronic kidney disease stage 3 (disorder) (940319041) Chronic kidney disease, stage 3 (moderate) (N18.3) Active confirmed Problem Abnormal uterine bleeding (21090727250484) Abnormal uterine and vaginal bleeding, unspecified (N93.9) Active confirmed Problem Abnormal gait (73566057) Other abnormalities of gait and mobility (R26.89) Active confirmed Problem Chronic kidney disease stage 3B (disorder) (508695282) Chronic kidney disease, stage 3b (N18.32) Active confirmed Problem History of disease caused by Severe acute respiratory syndrome coronavirus 2 (situation) (1514056553922504 05) Personal history of COVID-19 (Z86.16) Active confirmed Problem Anxiety state (033536022) Anxiety state, unspecified (F41.1) Active confirmed Problem Abnormal gait (83920673) Gait instability (R26.81) Active confirmed Vital Signs Heart Rate 80 /min 12/13/2024 Temperature 97.3 degrees Fahrenheit 12/13/2024 Oximetry 98 % 12/13/2024 Blood pressure diastolic 80 mm Hg 12/13/2024 Height 61 in 12/13/2024 Blood pressure systolic 130 mm Hg 12/13/2024 Weight 175.2 lbs 12/13/2024 BMI 33.1 kg/m2 12/13/2024 Encounters Encounter Location Date Provider Diagnosis [address] [place] [address] 02/23/2024 KATHARINA ANGEL Type 2 diabetes bo itus with unspecified complications E11.8 ; Abnormal uterine and vaginal bleeding, unspecified N93.9 ; Essential (primary) hypertension I10 and Chronic kidney disease, stage 3 (moderate) N18.[address] [place] [address] 06/12/2024 KATHARINA ANGEL Type 2 diabetes bo itus with unspecified complications E11.8 ; Essential (primary) hypertension I10 ; Mixed hyperlipidemia E78.2 and Chronic kidney disease, stage 3 (moderate) N18.[address] [place] [address] 12/13/2024 KATHARINA ANGEL Encounter for genera l adult medical examination without abnormal findings Z00.00 ; Type 2 diabetes mellitus with unspecified complications E11.8 ; Essential (primary) hypertension I10 ; Mixed hyperlipidemia E78.2 ; Chronic kidney disease, stage 3b N18.32 ; Age-related osteoporosis without current pathological fracture M81.0 ; Other obesity due to excess calories E66.09 and Dietary counseling and surveillance Z71.[address] [place] [address] 04/25/[address] [facility] [address] [place] [address] 06/13/[address] [place] [address] 12/13/[address] [place] [address] 12/22/2024 [place] [address] [place] [address] 01/04/2025 KATHARINA ANGEL Assessments Encounter Date Diagnosis (ICD [...] on right medications. She has seen her local flatbed driver in the past 1 year. Foot care discussed. Check A1c. Hypertension with kidney disease. Blood pressure well controlled on current regimen. Advised appropriate hydration. Check basic panel. Chronic kidney disease stage 3. She does not appear to be in volume overload. Advised appropriate hydration. Avoid NSAIDs.She follows up with inpatient services director General health concerns discussed with patient. Scribe services used to formulate this note under HIPAA compliance and under [place] law mandated for scribe services. Patient aware [...] on right medications. She has seen her local flatbed driver in the past 1 year. Foot care discussed. Check A1c. Hypertension with kidney disease. Blood pressure well controlled on current regimen. Advised appropriate hydration. Check basic panel. Chronic kidney disease stage 3. She does not appear to be in volume overload. Advised appropriate hydration. Avoid NSAIDs.She follows up with inpatient services director General health concerns discussed with patient. Scribe services used to formulate this note under HIPAA compliance and under [place] law mandated for scribe services. Patient aware [...] on right medications. She has seen her local flatbed driver in the past 1 year. Foot care [...] appropriate hydration. Avoid NSAIDs.She follows up with inpatient services director Class 1 obesity. Advised dietary restrictions and [...] this note under HIPAA compliance and under [place] law mandated for scribe services. Patient aware of service. Verbal consent and written consent taken from the patient. Patient understands and verbalizes understanding of the scribes services and all questions answered regarding scribes services. Patient agrees to use of scribes services. 12/13/2024 Type 2 diabetes mellitus with unspecified complications (ICD-10 - E11.8) is 69 years old Czech speaking lady is accompanied by her daughter [...] lisinopril, atorvastatin and Zetia. She is seen local flatbed driver in the past 1 year. Foot care [...] Dr. Camarillo. Multiple joint osteoarthritis. She takes cjrj-owd-kgqxugj Tylenol and also takes tizanidine 2 mg [...] (ICD-10 - Z00.00) is 69 years old Czech speaking lady is accompanied by her daughter [...] lisinopril, atorvastatin and Zetia. She is seen local flatbed driver in the past 1 year. Foot care [...] Dr. Camarillo. Multiple joint osteoarthritis. She takes pyyz-gut-bmlkrjf Tylenol and also takes tizanidine 2 mg [...] (ICD-10 - I10) is 69 years old Czech speaking lady is accompanied by her daughter [...] lisinopril, atorvastatin and Zetia. She is seen local flatbed driver in the past 1 year. Foot care [...] Dr. Camarillo. Multiple joint osteoarthritis. She takes yxbt-fac-efsraaq Tylenol and also takes tizanidine 2 mg [...] on right medications. She has seen her local flatbed driver in the past 1 year. Foot care [...] appropriate hydration. Avoid NSAIDs.She follows up with inpatient services director Class 1 obesity. Advised dietary restrictions and [...] this note under HIPAA compliance and under [place] law mandated for scribe services. Patient aware [...] on right medications. She has seen her local flatbed driver in the past 1 year. Foot care discussed. Check A1c. Hypertension with kidney disease. Blood pressure well controlled on current regimen. Advised appropriate hydration. Check basic panel. Chronic kidney disease stage 3. She does not appear to be in volume overload. Advised appropriate hydration. Avoid NSAIDs.She follows up with inpatient services director General health concerns discussed with patient. Scribe services used to formulate this note under HIPAA compliance and under [place] law mandated for scribe services. Patient aware [...] on right medications. She has seen her local flatbed driver in the past 1 year. Foot care discussed. Check A1c. Hypertension with kidney disease. Blood pressure well controlled on current regimen. Advised appropriate hydration. Check basic panel. Chronic kidney disease stage 3. She does not appear to be in volume overload. Advised appropriate hydration. Avoid NSAIDs.She follows up with inpatient services director General health concerns discussed with patient. Scribe services used to formulate this note under HIPAA compliance and under [place] law mandated for scribe services. Patient aware [...] on right medications. She has seen her local flatbed driver in the past 1 year. Foot care [...] appropriate hydration. Avoid NSAIDs.She follows up with inpatient services director Class 1 obesity. Advised dietary restrictions and [...] this note under HIPAA compliance and under [place] law mandated for scribe services. Patient aware of service. Verbal consent and written consent taken from the patient. Patient understands and verbalizes understanding of the scribes services and all questions answered regarding scribes services. Patient agrees to use of scribes services. 12/13/2024 Mixed hyperlipidemia (ICD-10 - E78.2) is 69 years old Czech speaking lady is accompanied by her daughter [...] lisinopril, atorvastatin and Zetia. She is seen local flatbed driver in the past 1 year. Foot care [...] Dr. Camarillo. Multiple joint osteoarthritis. She takes sbvk-itk-yawjkwh Tylenol and also takes tizanidine 2 mg [...] (ICD-10 - N18.32) is 69 years old Czech speaking lady is accompanied by her daughter [...] lisinopril, atorvastatin and Zetia. She is seen local flatbed driver in the past 1 year. Foot care [...] Dr. Camarillo. Multiple joint osteoarthritis. She takes eylj-odx-fnwwwmb Tylenol and also takes tizanidine 2 mg [...] on right medications. She has seen her local flatbed driver in the past 1 year. Foot care [...] appropriate hydration. Avoid NSAIDs.She follows up with inpatient services director Class 1 obesity. Advised dietary restrictions and [...] this note under HIPAA compliance and under [place] law mandated for scribe services. Patient aware of service. Verbal consent and written consent taken from the patient. Patient understands and verbalizes understanding of the scribes services and all questions answered regarding scribes services. Patient agrees to use of scribes services. 12/13/2024 Age-related osteoporosis without current pathological fracture (ICD-10 - M81.0) is 69 years old Czech speaking lady is accompanied by her daughter [...] lisinopril, atorvastatin and Zetia. She is seen local flatbed driver in the past 1 year. Foot care [...] Dr. Camarillo. Multiple joint osteoarthritis. She takes ovqo-jri-znjrsxu Tylenol and also takes tizanidine 2 mg [...] (ICD-10 - E66.09) is 69 years old Czech speaking lady is accompanied by her daughter [...] lisinopril, atorvastatin and Zetia. She is seen local flatbed driver in the past 1 year. Foot care [...] Dr. Camarillo. Multiple joint osteoarthritis. She takes qvdz-gww-lelcrjb Tylenol and also takes tizanidine 2 mg [...] (ICD-10 - Z71.3) is 69 years old Czech speaking lady is accompanied by her daughter [...] lisinopril, atorvastatin and Zetia. She is seen local flatbed driver in the past 1 year. Foot care [...] Dr. Camarillo. Multiple joint osteoarthritis. She takes ggvc-cga-ffcbxxn Tylenol and also takes tizanidine 2 mg [...] Future Test Test Name Order Date Hemoglobin [id number] 12/13/2024 Next Appt Details Provider Name:KATHARINA ANGEL , 06/14/2025 09:45:00 AM, [address] [place] [address] [address], [place], [address], Insurance Providers Payer Name Payer Address Payer Phone Subscriber Number Group Number Insured Name Patient Relationship to Insured Coverage Start Date Coverage End Date Medicare [address] [place] [id number] Ben Boswell Self - patient is the insured 1 [place] Medicaid [address] [place] [address] [id number] Ben Boswell Self - patient is the insured [employer] Supplement [address] [place] [address] [id number] Ben Boswell Self - patient is the insured Medical (General) History Medical History History ICD Code hypertension hyperlipidemia CKD stage 3 see Renal diabetes mellitus type 2 anxiety/depression and see Therapist Personal history of COVID-19 10/[address] Hanna Surgical History Surgery Date(Month/Year) hysterectomy
--- OUTSIDE RECORDS SUMMARY | 2025-01-17 17:08 | XMS_ITS ---
Author Organization [facility] Address [address] [place] [address] Care Team Providers Care Dynamic Balancer Name Role Phone KATHARINA ANGEL Primary Care Provider REASON FOR VISIT referral to Dr. Moy Encounters Encounter Location Date Provider Diagnosis [facility] [address] [address] 12/22/2024 KATHARINA ANGEL Plan Of Treatment Next Appt Details Provider Name:KATHARINA ANGEL , 06/14/2025 09:45:00 AM, [address] [place] [address] [address], [place], [address], Progress Notes * Rex BOSWELLB: (69 yo F)Acc No.[id number]:12/22/2024 Patient:?ELBERT, Fabianka :1955???Age:69 Y???Sex:Female Address:[address], [place] [address] * true * Date:? Generated for Printi gloria/Abhay/eTransmitting on:?01/17/2025 05:08 PM EDT
--- OUTSIDE RECORDS SUMMARY | 2025-01-17 17:08 | XMS_ITS | Clinical Summary ---
Author Organization [facility] Address [address] [place] [phone] Phone Care Team Providers Care Triple Air Valve Tester Name Role Phone Yang Fernando MD Primary Care Provider [phone] Allergies No known active allergies Medications Trulicity [...] MG tablet 2 Active ergocalciferol 1.25 MG (77123 UT) capsule Take 50,000 Units by mouth [...] 08/24/2019 Overview (11/24/2021): 08/19/19 - seen at [facility] ED c/o vaginal bleeding. Pelvis [...] Near syncope 01/11/2018 Overview (11/24/2021): 12/21-12/22/17 - [facility] Ed for episode of syncope/ unreponsivenss following [...] Office Visit [facility] [address] [phone] Taqueria Cordero MD Stage 3 chronic kidney disease, not otherwise specified (HCC) (Primary Dx); Hypertensive chronic kidney disease; Type 2 diabetes mellitus with diabetic chronic kidney disease (HCC); Other proteinuria from Last 3 Months Immunizations Name Administration [...] Office Visit [facility] [address] [phone] Taqueria Cordero MD [address] [phone] Health Maintenance Due Date Last Done Comments Breast Cancer Screening 1955 Colorectal Cancer Screening: Annual FOBT 2004 Colorectal Cancer Screening: Colonoscopy 2004 Colorectal Cancer Screening: Sigmoidoscopy 2004 Pneumococcal Vaccine: 65+ Years (3 of 3 - PPSV23 or PCV20) 06/01/2018 12/30/2016, 06/01/2013 Diabetes: Ophthalmology Exam 03/21/2021 Diabetes: Pedal Pulse Checked 03/21/2021 Diabetes: Sensory Foot Exam 03/21/2021 Diabetes: Visual Foot Exam 03/21/2021 Diabetes: Hemoglobin A1C 09/02/20222 022, 12/15/2021, 01/14/2021 Influenza Vaccine (#1) 2024 [...] Creatinine, Ur 113.6 Not Estab. mg/dL [facility] Albumin, Urine 225.2 Not Estab. ug/mL [facility] Albumin/Creatin ine Ratio 198(H) 0 - 29 mg/g creat [facility] Comment: ? Normal: ?0 - ??29 ? Moderately increased: 30 - 300 ? Severely increased: ? >300 Urine (Urine, Clean Catch) 12/11/2024 10:35 AM EST 12/11/2024 us Taqueria Cordero MD LAB URINE ORDERABLES Final Resul t [facility] [address] [place] [phone] * (ABNORMAL) Vit D 25 hydroxy (12/11/2024 10:35 AM EST) Vitamin D, 25-OH, Total 24.0(L) 30.0 - 100.0 ng/mL [facility] Comment: Vitamin D deficiency has been defined by the [place] of Medicine and an Endocrine Society practice guideline as a level of serum 25-OH vitamin D less than 20 ng/mL (1,2). The Endocrine Society went on to further define vitamin D insufficiency as a level between 21 and 29 ng/mL (2). 1. IOM ([place] of Medicine). 2010. Dietary reference ?? intakes for calcium and D. [place]: The ?? National [employer]. 2. Shari MF, Lillian WALLACE, Nathan FERRELL, et al. ?? Evaluation, treatment, and prevention of vitamin D ?? deficiency: an Endocrine Society clinical practice ?? guideline. JCEM. 2010; 96(7):1911-30. Blood (Blood, Venous) 12/11/2024 10:35 AM EST 12/11/2024 us Taqueria Cordero MD LAB BLOOD ORDERABLES Final Resul t [facility] [address] [place] [address] * (ABNORMAL) PTH, intact (12/11/2024 10:35 AM EST) PTH 96(H) 15 - 65 pg/mL [facility] Blood (Blood, Venous) 12/11/2024 10:35 AM EST 12/11/2024 Taqueria Cordero MD LAB BLOOD ORDERABLES Final Resul t [facility] [address] [place] [address] * (ABNORMAL) Renal funtion panel (12/11/2024 10:35 AM EST) Glucose 190(H) 70 - 99 mg/dL [facility] BUN 35(H) 8 - 27 mg/dL [facility] Creatinine 1.57(H) 0.57 - 1.00 mg/dL [facility] eGFR CKD-EPI CR 2020 35(L) >59 mL/min/1.7 3 [facility] BUN/Creatinine Ratio 22 12 - 28 [facility] Sodium 139 134 - 144 mmol/L [facility] Potassium 4.8 3.5 - 5.2 mmol/L [facility] Chloride 104 96 - 106 mmol/L [facility] Bicarbonate (CO2) 19(L) 20 - 29 mmol/L [facility] Calcium 9.8 8.7 - 10.3 mg/dL [facility] Albumin 4.4 3.9 - 4.9 g/dL [facility] Phosphorus 3.6 3.0 - 4.3 mg/dL [facility] Blood (Blood, Venous) 12/11/2024 10:35 AM EST 12/11/2024 Taqueria Cordero MD LAB BLOOD ORDERABLES Final Resul t [facility] [address] [place] [address] * (ABNORMAL) Hemoglobin A1c (06/02/2022 2:46 PM EDT) Hemoglobin A1C 7.5(H) (4.0-5.6) % [facility] Comment: MONITORING: In known diabetic patients, hemoglobin A1c targets should be discussed with health care provider. DIAGNOSTIC USE: ??The [place] Diabetes Association (ADA) and the World Health [...] Supplement 1 Testing performed or reported by [facility] Reference [employer]Me, a Service of [facility], [address] [place] [address] Khanh Lopez MD, Solar Electric Practitioner [facility]# [id number] Blood (Blood, Venous) 06/02/2022 2:46 PM EDT 06/02/2022 2:49 PM EDT Kartik Ureña MD LAB BLOOD ORDERABLES Final Re sult [facility] from Last 3 Months or Most Recently Relevant to Health Maintenance Insurance [place]ICARE [place] Care Teams Triple Air Valve Tester Relationship Specialty Start Date End Date Yang Fernando MD [address] [place] [address] PCP - General Internal Medicine 12/02/21
--- OUTSIDE RECORDS SUMMARY | 2025-01-17 17:08 | XMS_ITS ---
Author Organization [facility] Address [address] [place] [phone] Care Team Providers Care Solar Business Developer Name Role Phone KATHARINA ANGEL Primary Care Provider REASON FOR VISIT Psych referral Encounters Encounter Location Date Provider Diagnosis [address] [phone] 01/04/2025 KATHARINA ANGEL Plan Of Treatment Next Appt Details Provider Name:KATHARINA ANGEL , 06/14/2025 09:45:00 AM, [address] [place] [address], [place], [phone], Progress Notes * Rex BOSWELLB: (69 yo F)Acc No.[id number]:01/04/2025 Patient:?Susanna BOSWELLbianka :1955???Age:69 Y???Sex:Female [place] [address] * true * Date:? Generated for Constanzai gloria/Abhay/eTransmitting on:?01/17/2025 05:08 PM EDT
--- OUTSIDE RECORDS SUMMARY | 2025-01-17 17:08 | XMS_ITS | Encounter Summary ---
Author Organization [facility] Address [address] [place] [address] Care Team Providers Care Community Nutrition Educator Name Role Phone Vandana Goode MUSHROOM CULTIVATOR Primary Care Provider [phone] Encounter Details Date Type Department Care Team (Late st Contact Info) Description 10/21/2015 Interim Notes [facility] [address] [place] [phone] Kerrie Wooten, COUNSELOR [address] [place] [address] Social History Tobacco Use Types Packs/Day Years [...] documented as of this encounter Care Teams Community Nutrition Educator Relationship Specialty Start Date End Date Vandana Goode NP [address] [place] [address] PCP - General Family Medicine, MUSHROOM CULTIVATOR 08/28/24 documented as of this encounter
--- OUTSIDE RECORDS SUMMARY | 2025-01-17 17:08 | XMS_ITS ---
Author Organization [facility] Address [address] [place] [phone] Care Team Providers Care Hydrometallurgical Engineer Name Role Phone KATHARINA ANGEL Primary Care Provider [phone] REASON FOR VISIT Test Strips Refills Medications Medication SIG (Take, Route, Fr equency, Duration) Notes Start Date End Date Status FreeStyle Lite Test - 1 strip once a day Dx: E11.8 for 90 days Active Encounters Encounter Location Date Provider Diagnosis [facility] [address] [phone] 12/13/2024 KATHARINA ANGEL Plan Of Treatment Medication Medication Name Sig Start Date Stop Date Notes FreeStyle Lite Test - 1 strip once a day Dx: E11.8 for 90 days Next Appt Details Provider Name:KATHARINA ANGEL , 06/14/2025 09:45:00 AM, [address] [place] [address], [place], [phone], Progress Notes * Amado BOSWELLaDOB: (69 yo F)Acc No.[id number]:12/13/2024 Patient:?ELBERT, Fabianka :1955???Age:69 Y???Sex:Female [facility] [place] [address] * Refills? Refill FreeStyle Lite Test Strip, -, 90, 1 strip once a day Dx: E11.8, 90 days, Refills=11 * true * Date:? Generated for Nelly castro/Abhay/eTransmitting on:?01/17/2025 05:07 PM EDT
== END 2025-01-17 15:46 | disposition home or self-care (01) ==
LOC: HO.HOS 15:00
PROVIDERS: PCP Hospitalist; Visit Provider Orthopaedic Surgery
DX: S52.501A Unspecified fracture of the lower end of right radius, initial encounter for closed fracture (principal); S52.611A Displaced fracture of right ulna styloid process, initial encounter for closed fracture; R20.0 Anesthesia of skin; R20.2 Paresthesia of skin
CPT/HCPCS: 99024

== ENCOUNTER → 2025-01-17 15:01 | Outpatient (BNV) | payer MEDICARE, MEDICAID, SELFPAY | PROVIDERS: Visit Provider Radiology Diagnostic Radiology | DX: M25.531 Pain in right wrist (principal); S52.611A Displaced fracture of right ulna styloid process, initial encounter for closed fracture; S52.501A Unspecified fracture of the lower end of right radius, initial encounter for closed fracture | CPT/HCPCS: 73110 ==

== ENCOUNTER 2025-02-14 09:11 | Outpatient (REF) | payer MEDICARE, MEDICAID, SELFPAY ==
--- NOTE | ~2025-02-14 | XR_ITS ---
CLINICAL HISTORY: M25.531 - Pain in right wrist 3 view right wrist Comparison: 12/19/2024 Findings: There is healing of the distal radial fracture. There is no significant change in ulnar styloid process fracture fragment displacement. No new fractures or dislocations. No significant arthritic change or erosions. No radiopaque foreign body. IMPRESSION: 1. Healing distal radial fracture This document has been electronically signed by: Dustin Whiting MD on 02/16/2025 08:57:21
--- OUTSIDE RECORDS SUMMARY | 2025-02-15 10:18 | XMS_ITS ---
Author Organization [facility] Address [address] [place] [address] Care Team Providers Care Premix Operator Concentrate Name Role Phone KATHARINA ANGEL Primary Care Provider [phone] REASON FOR VISIT referral to Dr. Moy Encounters Encounter Location Date Provider Diagnosis [facility] [address] [address] 12/22/2024 KATHARINA ANGEL Plan Of Treatment Next Appt Details Provider Name:KATHARINA ANGEL , 06/14/2025 09:45:00 AM, [address] [place] [address] [address], [place], [address], Progress Notes * Rex BOSWELLB: (69 yo F)Acc No.[id number]:12/22/2024 Patient:?ELBERT, Fabianka :1955???Age:69 Y???Sex:Female Address:[address], [place] [address] * true * Date:? Generated for Printi ng/Triciag/eTransmitting on:?02/15/2025 10:18 AM EDT
--- OUTSIDE RECORDS SUMMARY | 2025-02-15 10:18 | XMS_ITS | Clinical Summary ---
Author Organization [facility] Address [address] [place] [phone] Phone Care Team Providers Care Sack Sorter Name Role Phone Yang Fernando MD Primary Care Provider [phone] Allergies No known active allergies Medications Trulicity [...] MG tablet 2 Active ergocalciferol 1.25 MG (64641 UT) capsule Take 50,000 Units by mouth [...] 08/24/2019 Overview (11/24/2021): 08/19/19 - seen at [facility] ED c/o vaginal bleeding. Pelvis U/S: [...] Near syncope 01/11/2018 Overview (11/24/2021): 12/21-12/22/17 - [facility] Ed for episode of [...] Office Visit [facility] [address] [address] Taqueria Cordero MD [address] [address] Health Maintenance Due Date Last [...] Creatinine, Ur 113.6 Not Estab. mg/dL [facility] Albumin, Urine 225.2 Not Estab. ug/mL [facility] Albumin/Creatin ine Ratio 198(H) 0 - 29 mg/g creat [facility] Comment: ? Normal: ?0 - ??29 ? Moderately increased: 30 - 300 ? Severely increased: ? >300 Urine (Urine, Clean Catch) 12/11/2024 10:35 AM EST 12/11/2024 us Taqueria Cordero MD LAB URINE ORDERABLES Final Resul t [facility] [place] [address] [place] [address] * (ABNORMAL) Vit D 25 hydroxy (12/11/2024 10:35 AM EST) Vitamin D, 25-OH, Total 24.0(L) 30.0 - 100.0 ng/mL [facility] Comment: Vitamin D deficiency has been defined by the [place] of Medicine and an Endocrine Society practice guideline as a level of serum 25-OH vitamin D less than 20 ng/mL (1,2). The Endocrine Society went on to further define vitamin D insufficiency as a level between 21 and 29 ng/mL (2). 1. IOM ([place] of Medicine). 2010. Dietary reference ?? intakes for calcium and D. [place]: The ?? National [employer]. 2. Shari MF, Lillian WALLACE, Nathan FERRELL, et al. ?? Evaluation, treatment, and prevention of vitamin D ?? deficiency: an Endocrine Society clinical practice ?? guideline. JCEM. 2010; 96(7):1911-30. Blood (Blood, Venous) 12/11/2024 10:35 AM EST 12/11/2024 Taqueria Cordero MD LAB BLOOD ORDERABLES Final Resul t Performing Organization Address City/[facility] Co de Phone Number [facility]vent[facility] [place] [address] [place] [address] * (ABNORMAL) PTH, intact (12/11/2024 10:35 AM EST) PTH 96(H) 15 - 65 pg/mL [facility] Blood (Blood, Venous) 12/11/2024 10:35 AM EST 12/11/2024 Taqueria Cordero MD LAB BLOOD ORDERABLES Final Resul t Performing Organization Address City/[facility] Co de Phone Number [email or web address] [facility] [place] [address] [place] [address] * (ABNORMAL) Renal funtion panel (12/11/2024 10:35 AM EST) Glucose 190(H) 70 - 99 mg/dL [facility] BUN 35(H) 8 - 27 mg/dL [facility] Creatinine 1.57(H) 0.57 - 1.00 mg/dL [facility] eGFR CKD-EPI CR 2020 35(L) >59 mL/min/1.7 3 [facility] BUN/Creatinine Ratio 22 12 - 28 [facility] Sodium 139 134 - 144 mmol/L [facility] Potassium 4.8 3.5 - 5.2 mmol/L [facility] Chloride 104 96 - 106 mmol/L [facility] Bicarbonate (CO2) 19(L) 20 - 29 mmol/L [facility] Calcium 9.8 8.7 - 10.3 mg/dL [facility] Albumin 4.4 3.9 - 4.9 g/dL [facility] Phosphorus 3.6 3.0 - 4.3 mg/dL [facility] Blood (Blood, Venous) 12/11/2024 10:35 AM EST 12/11/2024 Taqueria Cordero MD LAB BLOOD ORDERABLES Final Resul t [facility] [address] [place] [address] * (ABNORMAL) Hemoglobin A1c (06/02/2022 2:46 PM EDT) Hemoglobin A1C 7.5(H) (4.0-5.6) % [facility] Comment: MONITORING: In known diabetic patients, hemoglobin A1c targets should be discussed with health care provider. DIAGNOSTIC USE: ??The [place] Diabetes Association (ADA) and the World Health [...] Supplement 1 Testing performed or reported by [facility], a Service of [facility], [address] [place] [id number] Khanh Lopez MD, Campaign Consultant [facility]# [id number] Blood (Blood, Venous) 06/02/2022 2:46 PM EDT 06/02/2022 2:49 PM EDT Kartik Ureña MD LAB BLOOD ORDERABLES Final Re sult [facility] from Last 3 Months or Most Recently Relevant to Health Maintenance Insurance Medicare Medicaid [place] Medicare [place] Care Teams Sack Sorter Relationship Specialty Start Date End Date Yang Fernando MD [address] [place] [address] PCP - General Internal Medicine 12/02/21
--- OUTSIDE RECORDS SUMMARY | 2025-02-15 10:18 | XMS_ITS | Patient Health Record ---
Author Organization [facility] Address [address] [place] [address] Care Team Providers Care Product Steward Name Role Phone KATHARINA ANGEL Primary Care Provider Allergies No Known Allergies Results Component Value Reference Range Notes Comp. Metabolic Panel [id number] Reviewed date:12/13/2024 07:46:01 AM Interpretation: Performing Lab:[facility], [address] [facility], Phone - [phone], Director - MDJodry Notes/Report: Glucose 189 70-99 [...] 0-40 IU/L ALT (SGPT) 19 0-32 IU/L Lipid Panel-[id number] Reviewed date:12/13/2024 07:45:56 AM Interpretation: Performing Lab:[facility], [address], [place], Phone - [phone], Director - MDJodry Notes/Report: Cholesterol, Total 157 100-199 mg/dL Triglycerides 165 0-149 mg/dL HDL Cholesterol 57 >39 mg/dL VLDL Cholesterol Deric 28 5-40 mg/dL LDL Chol Calc ([facility]) 72 0-99 mg/dL Albumin/Creatinine Ratio,Daniel [id number] Reviewed date:12/13/2024 07:46:09 AM Interpretation: Performing Lab:[facility] [place], [address] [facility], [place], Phone - [phone], Director - MDJodry Notes/Report: Creatinine, Urine 113.6 Not Estab. mg/dL Albumin, Urine 218.3 Not Estab. ug/mL Alb/Creat Ratio 192 0-29 mg/g creat Normal: 0 - 29 Moderately increased: 30 - 300 Severely increased: >300 Hemoglobin [id number] Reviewed date:12/13/2024 07:46:17 AM Interpretation: Performing Lab:[facility] [place], [address] [facility], [place], Phone - [phone], Director - MDJodry Notes/Report: Hemoglobin A1c 8.0 4.8-5.6 % . Prediabetes: 5.7 - 6.4 Diabetes: >6.4 Glycemic control for adults with diabetes: <7.0 Reason For Referral Reason bleeding issues Diagnosis 1 Abnormal uterine and vaginal bleeding, unspecified (N93.9) Referral Organization [facility] Referring Provider First Name [facility] Referring Provider Last Name [facility] Referred Provider Specialty OB - Gynecol ogy General Notes Please contact the p atient for scheduling Referral Priority Routine Reason EUN- Dr Moy Diagnosis 1 Anxiety disorder, un specified (F41.9) Referral Organization [facility] Referring Provider First Name [facility] Referring Provider Last Name [facility] Referring Provider [facility] Referred Provider Specialty Psychiatry General [...] Active Diclofenac Sodium 1 % as directed Protection Consultant ally daily for 30 days Active hydroCHLOROthiazide 25 MG 1 tablet in th e morning Orally Once a day for 30 days Active Tradjenta 5 MG TAKE 1 TABLET BY GALINDO TH EVERY DAY for 90 Active Vitamin D (Ergocalciferol) 1.25 MG (65264 UT) TAKE 1 CAPSULE BY MOUTH ONE [...] Disorder due to type 2 diabetes mellitus (316623297) Type 2 diabetes mellitus with unspecified complications (E11.8) Active confirmed Problem Vitamin D deficiency (17445718) Vitamin D deficiency, unspecified (E55.9) Active confirmed Problem Obesity due to excess calories (066268455) Other obesity due to excess calories (E66.09) Active confirmed Problem Mixed hyperlipidemia (252543722) Mixed hyperlipidemia (E78.2) Active confirmed Problem Mild recurrent major depression (14503126) Major depressive disorder, recurrent, mild (F33.0) Active confirmed Problem Anxiety disorder (688719835) Anxiety disorder, unspecified (F41.9) Active confirmed Problem Essential hypertension (03842226) Essential (primary) hypertension (I10) Active confirmed Problem Constipation (54855625) Constipation, unspecified (K59.00) Active confirmed Problem Polyarthritis (979422219) 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) Active confirmed Problem Degeneration of thoracolumbar intervertebral disc (77847131) Other intervertebral disc degeneration, 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) Active confirmed Problem Age-related osteoporosis (611718226) Age-related osteoporosis without current pathological fracture (M81.0) Active confirmed Problem Chronic kidney disease stage 3 (disorder) (437704821) Chronic kidney disease, stage 3 (moderate) (N18.3) Active confirmed Problem Abnormal uterine bleeding (32847631753558) Abnormal uterine and vaginal bleeding, unspecified (N93.9) Active confirmed Problem Abnormal gait (51414889) Other abnormalities of gait and mobility (R26.89) Active confirmed Problem Chronic kidney disease stage 3B (disorder) (574147496) Chronic kidney disease, stage 3b (N18.32) Active confirmed Problem History of disease caused by Severe acute respiratory syndrome coronavirus 2 (situation) (5532005954570506 05) Personal history of COVID-19 (Z86.16) Active confirmed Problem Anxiety state (418124377) Anxiety state, unspecified (F41.1) Active confirmed Problem Abnormal gait (99192651) Gait instability (R26.81) Active confirmed Vital Signs Heart Rate 80 /min 12/13/2024 Temperature 97.3 degrees Fahrenheit 12/13/2024 Blood pressure diastolic 80 mm Hg 12/13/2024 Oximetry 98 % 12/13/2024 Height 61 in 12/13/2024 Blood pressure systolic 130 mm Hg 12/13/2024 Weight 175.2 lbs 12/13/2024 BMI 33.1 kg/m2 12/13/2024 Encounters Encounter Location Date Provider Diagnosis [address] [place] [address] 02/23/2024 KATHARINA ANGEL Type 2 diabetes bo itus with unspecified complications E11.8 ; Abnormal uterine and vaginal bleeding, unspecified N93.9 ; Essential (primary) hypertension I10 and Chronic kidney disease, stage 3 (moderate) N18.[address] [place] [address] 06/12/2024 KATHARINA ANGEL Type 2 diabetes bo itus with unspecified complications E11.8 ; Essential (primary) hypertension I10 ; Mixed hyperlipidemia E78.2 and Chronic kidney disease, stage 3 (moderate) N18.[address] [place] [address] 12/13/2024 KATHARINA ANGEL Encounter for genera l adult medical examination without abnormal findings Z00.00 ; Type 2 diabetes mellitus with unspecified complications E11.8 ; Essential (primary) hypertension I10 ; Mixed hyperlipidemia E78.2 ; Chronic kidney disease, stage 3b N18.32 ; Age-related osteoporosis without current pathological fracture M81.0 ; Other obesity due to excess calories E66.09 and Dietary counseling and surveillance Z71.[address] [place] [address] 04/25/[address] [place] [address] [place] [address] 06/13/[address] [place] [address] 12/13/[address] [place] [address] 12/22/2024 [place] [address] [place] [address] 01/04/2025 KATHARINA ANGEL Assessments Encounter Date Diagnosis [...] on right medications. She has seen her online user experience strategist in the past 1 year. Foot care discussed. Check A1c. Hypertension with kidney disease. Blood pressure well controlled on current regimen. Advised appropriate hydration. Check basic panel. Chronic kidney disease stage 3. She does not appear to be in volume overload. Advised appropriate hydration. Avoid NSAIDs.She follows up with fitness leader General health concerns discussed with patient. Scribe services used to formulate this note under HIPAA compliance and under [place] law mandated for scribe services. Patient aware [...] on right medications. She has seen her online user experience strategist in the past 1 year. Foot care discussed. Check A1c. Hypertension with kidney disease. Blood pressure well controlled on current regimen. Advised appropriate hydration. Check basic panel. Chronic kidney disease stage 3. She does not appear to be in volume overload. Advised appropriate hydration. Avoid NSAIDs.She follows up with fitness leader General health concerns discussed with patient. Scribe services used to formulate this note under HIPAA compliance and under [place] law mandated for scribe services. Patient aware of service. Verbal consent and written consent taken from the patient. Patient understands and verbalizes understanding of the scribes services and all questions answered regarding scribes services. Patient agrees to use of scribes services. 12/13/2024 Type 2 diabetes mellitus with unspecified complications (ICD-10 - E11.8) is 69 years old German speaking lady is accompanied by her daughter [...] lisinopril, atorvastatin and Zetia. She is seen online user experience strategist in the past 1 year. Foot care [...] Dr. Camarillo. Multiple joint osteoarthritis. She takes xfro-kkz-bxszkdc Tylenol and also takes tizanidine 2 mg [...] (ICD-10 - Z00.00) is 69 years old German speaking lady is accompanied by her daughter [...] lisinopril, atorvastatin and Zetia. She is seen online user experience strategist in the past 1 year. Foot care [...] Dr. Camarillo. Multiple joint osteoarthritis. She takes tmhk-ovs-zsrydbn Tylenol and also takes tizanidine 2 mg [...] MOLST form discussed with the patient. 06/12/2024 Type 2 diabetes mellitus with unspecified complications (ICD-10 - E11.8) Mrs. Boswell is a 68-year-old lady with hypertension, hyperlipidemia, CKD stage 3, diabetes mellitus type 2, anxiety/depression and polyosteoarthritis and she follows up with [facility] here for follow up. Plan is as follows: Type II diabetes mellitus. Last A1c 6.6. She checks his blood sugar at home and denies hypoglycemic and hyperglycemic episodes. She is on right medications. She has seen her online user experience strategist in the past 1 year. Foot care [...] appropriate hydration. Avoid NSAIDs.She follows up with fitness leader Class 1 obesity. Advised dietary restrictions and [...] this note under HIPAA compliance and under [place] law mandated for scribe services. Patient aware of service. Verbal consent and written consent taken from the patient. Patient understands and verbalizes understanding of the scribes services and all questions answered regarding scribes services. Patient agrees to use of scribes services. 06/12/2024 Essential (primary) hypertension (ICD-10 - I10) [...] on right medications. She has seen her online user experience strategist in the past 1 year. Foot care [...] appropriate hydration. Avoid NSAIDs.She follows up with fitness leader Class 1 obesity. Advised dietary restrictions and [...] this note under HIPAA compliance and under [place] law mandated for scribe services. Patient aware of service. Verbal consent and written consent taken from the patient. Patient understands and verbalizes understanding of the scribes services and all questions answered regarding scribes services. Patient agrees to use of scribes services. 12/13/2024 Essential (primary) hypertension (ICD-10 - I10) is 69 years old German speaking lady is accompanied by her daughter [...] lisinopril, atorvastatin and Zetia. She is seen online user experience strategist in the past 1 year. Foot care [...] Dr. Camarillo. Multiple joint osteoarthritis. She takes nmzh-qbs-nhcbkkx Tylenol and also takes tizanidine 2 mg [...] and MOLST form discussed with the patient. 02/23/2024 Essential (primary) hypertension (ICD-10 - I10) [...] on right medications. She has seen her online user experience strategist in the past 1 year. Foot care discussed. Check A1c. Hypertension with kidney disease. Blood pressure well controlled on current regimen. Advised appropriate hydration. Check basic panel. Chronic kidney disease stage 3. She does not appear to be in volume overload. Advised appropriate hydration. Avoid NSAIDs.She follows up with fitness leader General health concerns discussed with patient. Scribe services used to formulate this note under HIPAA compliance and under [place] law mandated for scribe services. Patient aware [...] on right medications. She has seen her online user experience strategist in the past 1 year. Foot care discussed. Check A1c. Hypertension with kidney disease. Blood pressure well controlled on current regimen. Advised appropriate hydration. Check basic panel. Chronic kidney disease stage 3. She does not appear to be in volume overload. Advised appropriate hydration. Avoid NSAIDs.She follows up with fitness leader General health concerns discussed with patient. Scribe services used to formulate this note under HIPAA compliance and under [place] law mandated for scribe services. Patient aware of service. Verbal consent and written consent taken from the patient. Patient understands and verbalizes understanding of the scribes services and all questions answered regarding scribes services. Patient agrees to use of scribes services. 12/13/2024 Mixed hyperlipidemia (ICD-10 - E78.2) is 69 years old German speaking lady is accompanied by her daughter [...] lisinopril, atorvastatin and Zetia. She is seen online user experience strategist in the past 1 year. Foot care [...] Dr. Camarillo. Multiple joint osteoarthritis. She takes kuhs-mty-cqqexwc Tylenol and also takes tizanidine 2 mg [...] MOLST form discussed with the patient. 06/12/2024 Mixed hyperlipidemia (ICD-10 - E78.2) Mrs. [...] on right medications. She has seen her online user experience strategist in the past 1 year. Foot care [...] appropriate hydration. Avoid NSAIDs.She follows up with fitness leader Class 1 obesity. Advised dietary restrictions and [...] this note under HIPAA compliance and under [place] law mandated for scribe services. Patient aware of service. Verbal consent and written consent taken from the patient. Patient understands and verbalizes understanding of the scribes services and all questions answered regarding scribes services. Patient agrees to use of scribes services. 12/13/2024 Chronic kidney disease, stage 3b (ICD-10 - N18.32) is 69 years old German speaking lady is accompanied by her daughter [...] lisinopril, atorvastatin and Zetia. She is seen online user experience strategist in the past 1 year. Foot care [...] Dr. Camarillo. Multiple joint osteoarthritis. She takes zmos-znc-pfmxyym Tylenol and also takes tizanidine 2 mg [...] on right medications. She has seen her online user experience strategist in the past 1 year. Foot care [...] appropriate hydration. Avoid NSAIDs.She follows up with fitness leader Class 1 obesity. Advised dietary restrictions and [...] this note under HIPAA compliance and under [place] law mandated for scribe services. Patient aware of service. Verbal consent and written consent taken from the patient. Patient understands and verbalizes understanding of the scribes services and all questions answered regarding scribes services. Patient agrees to use of scribes services. 12/13/2024 Age-related osteoporosis without current pathological fracture (ICD-10 - M81.0) is 69 years old German speaking lady is accompanied by her daughter [...] lisinopril, atorvastatin and Zetia. She is seen online user experience strategist in the past 1 year. Foot care [...] Dr. Camarillo. Multiple joint osteoarthritis. She takes glfn-wfi-fxmuuzy Tylenol and also takes tizanidine 2 mg [...] (ICD-10 - E66.09) is 69 years old German speaking lady is accompanied by her daughter [...] lisinopril, atorvastatin and Zetia. She is seen online user experience strategist in the past 1 year. Foot care [...] Dr. Camarillo. Multiple joint osteoarthritis. She takes tpah-ouw-efyrdjb Tylenol and also takes tizanidine 2 mg [...] (ICD-10 - Z71.3) is 69 years old German speaking lady is accompanied by her daughter [...] lisinopril, atorvastatin and Zetia. She is seen online user experience strategist in the past 1 year. Foot care [...] Dr. Camarillo. Multiple joint osteoarthritis. She takes slgv-erh-mvmdfzj Tylenol and also takes tizanidine 2 mg [...] Future Test Test Name Order Date Hemoglobin [id number] 12/13/2024 Next Appt Details Provider Name:KATHARINA ANGEL , 06/14/2025 09:45:00 AM, [address] [place] [address] [address], [place], [address], Insurance Providers Payer Name Payer Address Payer Phone Subscriber Number Group Number Insured Name Patient Relationship to Insured Coverage Start Date Coverage End Date Medicare [address] [id number] Ben Boswell Self - patient is the insured 1 [place] Medicaid [address] [place] [address] [id number] Ben Boswell Self - patient is the insured A[employer] Supplement [address] [place] [address] [id number] Ben Boswell Self - patient is the insured Medical (General) History Medical History History ICD Code hypertension hyperlipidemia CKD stage 3 see Renal diabetes mellitus type 2 anxiety/depression and see Therapist Personal history of COVID-19 10/[address] Hanna Surgical History Surgery Date(Month/Year) hysterectomy
--- OUTSIDE RECORDS SUMMARY | 2025-02-15 10:18 | XMS_ITS ---
Author Organization [facility] Address [address] [place] [address] Care Team Providers Care Barber Instructor Name Role Phone KATHARINA ANGEL Primary Care Provider [phone] REASON FOR VISIT Psych referral Encounters Encounter Location Date Provider Diagnosis [address] [address] 01/04/2025 KATHARINA ANGEL Plan Of Treatment Next Appt Details Provider Name:KATHARINA ANGEL , 06/14/2025 09:45:00 AM, [address] [place] [address], [place], [address], Progress Notes * Rex BOSWELLB: (69 yo F)Acc No.[id number]:01/04/2025 Patient:?Susanna BOSWELLbianka :1955???Age:69 Y???Sex:Female [place] [address] * true * Date:? Generated for Constanzai gloria/Abhay/eTransmitting on:?02/15/2025 10:18 AM EDT
--- OUTSIDE RECORDS SUMMARY | 2025-02-15 10:18 | XMS_ITS | Clinical Summary ---
Author Organization [facility] Address [address] [place] [address] Care Team Providers Care Last Ironer Name Role Phone Vandana Goode NP Primary Care Provider [phone] Source Comments PLEASE NOTE, if this patient [...] complication, without long-term current use of insulin ([facility]) 1 Strip as needed for high blood sugar Dx.: E11.9 Use tid as directed for dm 100 Each 11 09/19/20 18 Active blood-glucose meter (FREESTYLE LITE METER) monitoring kitIndications:T ype 2 diabetes mellitus without complication, without long-term current use of insulin ([facility]) as needed for blood glucose monitoring 1 Each 09/19/20 18 Active lancetsIndicatio ns:Type 2 diabetes mellitus without complication, without long-term current use of insulin ([facility]) Freestyle lite lancets Dx.: [...] complication, without long-term current use of insulin ([facility]),Essent ial hypertension TAKE 1 TABLET BY MOUTH EVERY DAY 30 Tablet 11 12/02/19 21 Active DULoxetine (CYMBALTA) [address] capsuleIndicatio ns:Current severe episode of major depressive disorder without psychotic features without prior episode ([facility]) Take 1 Capsule by mouth once [...] complication, without long-term current use of insulin ([facility]) TAKE 1 TABLET BY MOUTH ONCE [...] complication, without long-term current use of insulin ([facility]) TAKE 1 TABLET BY MOUTH ONCE DAILY WITH BREAKFAST 30 Tablet 2 10/12/20 22 Active Active Problems Problem Noted Date Diagnosed Date Class 1 obesity due to exces s calories with serious comorbidity and body mass index (BMI) of 31.0 to 31.9 in adult 03/25/2021 Current severe episode of ma alis depressive disorder without psychotic features without prior episode ([facility]) 02/27/2021 Endometrial polyp 08/20/2020 Overview (08/20/2020): 07/22/[address] Bolton Post-menopausal bleeding 08/24/2019 Overview (08/24/2019): 08/19/19 - seen at [facility] ED c/o vaginal bleeding. Pelvis U/S: [...] kidney disease) stage 3, GFR 30-59 ml/min ([facility]) 01/16/2018 Overview (11/06/2024): 11/06/24 f/u Dr [...] episode 12/21/17 01/11/2018 Overview (01/11/2018): 12/21-12/22/17 [place] [facility] for episode of syncope/ unreponsivenss following an emotional conversation with son who is in [place]. She had NIH score of 3 initially for being nonverbal but otherwise normal. CT and CTA h/n of head neg, tele monitoring without any cardiac arrthymias. Discharged next day. Outpatient ECHO and Holter monitor recommended Pap smear of cervix declined 12/30/2016 Colonoscopy refused 12/30/2016 Non-Serbian speaking patient 10/13/2016 Non compliance with medical [...] c3-4 foramen. Coronary artery disease invo lving [place] heart with angina pectoris ([facility]) 09/05/2015 Left shoulder pain 09/04/2015 Overview [...] complication, without long-term current use of insulin ([facility]) 06/01/2013 Resolved Problems Problem Noted Date [...] 06/02/2022, 08/0 12/2021, 12/15/2021, Additional history exists [id number] ( season) 2024 021, 12/28/2020 Imm-Influenza (#1) [...] complication, without long-term current use of insulin ([facility]) LIPID PANEL Routine 01/14/2021 12:00 PM EDT Type 2 diabetes mellitus without complication, without long-term current use of insulin ([facility]) HEMOGLOBIN GLYCOSYLATED A1C Routine 01/14/2021 12:00 PM EDT Type 2 diabetes mellitus without complication, without long-term current use of insulin ([facility]) MICROALBUMIN/CREATININ E RATIO, URINE, RANDOM Routine 01/14/2021 11:54 AM EDT Type 2 diabetes mellitus without complication, without long-term current use of insulin ([facility]) MAMMOGRAM, ABSTRACTED DISCRETE Routine 06/23/2019 8:55 AM EDT DILATED RETINAL EXAM W/EVIDENCE OF RETINOPATHY Routine 07/21/2018 8:36 AM EDT HEPATITIS A,B,C PANEL Routine 01/14/2018 10:53 AM EDT Encounter to establish care from Last 3 Months or Most Recently Relevant to Health Maintenance Results * (ABNORMAL) HEMOGLOBIN, GLYCOSYLATED (A1C) (01/14/2021 12:00 PM EDT) GLYCATED HEMOGLOBIN A1C 8.4(H) <6.5 % [facility] EST[facility] AVERAGE GLUCOSE 194 mg/dL [facility] Blood Blood / Unknown 01/14/2021 1 2:00 PM EDT 01/14/2021 4:23 PM EDT [facility] - 01/14/2021 8:07 PM EDT [facility], [place] [address] Underground Foreman - Leandra Anderson MD PT ID [id number] ORD# [id number] Melissa Reyes [facility] LAB - BLOOD DRAW Final Re sult Performing Organization Address City/[facility]/ZIP Co de Phone Number [address] [address], * (ABNORMAL) LIPID PANEL (01/14/2021 12:00 PM EDT) CHOLESTEROL 168 0 - 200 mg/dL [facility] TRIGLYCERIDES 198(H) 0 - 150 mg/dL [facility] HDL CHOLESTEROL 62 >40 mg/dL [facility] LDL CALCULATED 67 0 - 100 mg/dL [facility] TC-HDLC RATIO 2.7 0 - 4.4 mg/dL [facility] Blood Blood / Unknown 01/14/2021 1 2:00 PM EDT 01/14/2021 4:23 PM EDT Narrative [facility] - 01/14/2021 5:10 PM EDT [facility], [place] [address] Underground Foreman - Leandra Anderson MD PT ID [id number] ORD# [id number] Melissa Reyes [facility] LAB - BLOOD DRAW Final Re sult Performing Organization Address City/[facility]/ZIP Co de Phone Number [address] [address], * (ABNORMAL) COMPRE METAB PANEL (01/14/2021 12:00 PM EDT) GLUCOSE 260(H) 70 - 100 mg/dL [facility] Comment:Reference range appl icable to fasting specimens only BUN 54(H) 5 - 25 mg/dL [facility] CREAT 1.49(H) 0.5 - 1.1 mg/dL [facility] GLOMERULAR FILTRATION RATE 35 [facility] Comment: If patient is -Moroccan, multiply result by 1.21 Chronic Kidney Disease: < 60 ml/min/1.73 square meters Kidney Failure: < 15 ml/min/1.73 square meters SODIUM 137 135 - 145 mEq/L [facility] POTASSIUM 4.1 3.5 - 5.5 mmol/L [facility] CHLORIDE 104 96 - 110 mmol/L [facility] CO2 24 21 - 32 mmol/L [facility] ANION GAP 9 3 - 11 [facility] CALCIUM 10.0 8.5 - 10.5 mg/dL [facility] TOTAL PROTEIN 7.6 6.0 - 8.0 G/dL [facility] ALBUMIN 4.0 3.2 - 5.0 G/dL [facility] BILI, TOTAL 0.5 0.0 - 1.4 mg/dL [facility] SGOT 12 10 - 42 U/L [facility] SGPT 28 10 - 60 U/L [facility] ALK PHOS 137(H) 42 - 121 U/L [facility] Blood Blood / Unknown 01/14/2021 1 2:00 PM EDT 01/14/2021 4:[address] [facility] - 01/14/2021 5:10 PM EDT [facility], [place] [address] Underground Foreman - Leandra Anderson MD PT ID [id number] ORD# [id number] Melissa Reyes [facility] LAB - BLOOD [place] [address], * MICROALBUMIN/CREATININE RATIO, URINE, RANDOM (01/14/2021 11:54 AM EDT) CREATININE, RANDOM URINE 113 mg/dL [facility] MICROALBUMIN, RANDOM 15.7 0.0 - 29.0 mg/L [facility] MICROALB/CRE RATIO RANDOM 13.8 0.0 - 30.0 mg/G [facility] Urine Urine specimen / Unknown 01/14/2021 11:54 AM EDT 01/14/2021 4:23 PM EDT Narrative [facility] - 01/14/2021 5:24 PM EDT [facility], a member of [address] [address] Underground Foreman - Leandra Anderson MD PT ID [id number] ORD# [id number] Melissa Reyes [facility] LAB - NO BLOOD DRAW Edite d Result - Final [address] [address], * MAMMOGRAM, ABSTRACTED (06/23/2019 8:55 AM EDT) MAMMOGRAM NEGATIVE NEGATIVE Anatomical Region Laterality Modality Other Impressions 06/23/2019 8:55 AM EDT No mammogramic evidence of malignancy BIRADS - 1 negative repeat 1 year Provider [facility] Final Result * DILATED RETINAL EYE EXAM WITH INTERPRETATION BY AN RN DIALYSIS OR CAN FILLING ROOM SWEEPER DOCUMENTED AND REVIEWED (DM)4 (07/21/2018 8:36 AM EDT) Impressions Danielle Neumann MA - 07/21/2018 8:36 AM EDT DM diabetes with mild, non-proliferative diabetic retinopathy noted- both eyes Repeat 1 year Provider [facility] OTHER Final Result * (ABNORMAL) HEPATITIS A,B,C PANEL (01/14/2018 10:53 AM EDT) HEPATITIS B SURFACE ANTIBODY NEGATIVE NEGATIVE [facility] HEPATITIS B SURFACE ANTIGEN NEGATIVE NEGATIVE [facility] Comment: Over the counter supplements containing high doses of biotin may interfere with this assay. ??If interference is suspected, patients shoud be retested after refraining from biotin supplements for 72 hours. HEPATITIS C VIRUS DIAGNOSTIC NEGATIVE NEGATIVE [facility] HEPATITIS A ANTIBODY TOTAL POSITIVE(A) NEGATIVE [facility] Comment: Over the counter supplements containing high doses of biotin may interfere with this assay. ??If interference is suspected, patients shoud be retested after refraining from biotin supplements for 72 hours. HEPATITIS B CORE ANTIBODY NEGATIVE NEGATIVE [facility] Blood specimen (specimen) Blood / Unknown 01/14/2018 10:53 AM EDT 01/14/2018 10:56 AM EDT Narrative [facility] - 01/14/2018 12:46 PM EDT [facility] [address] [place] [address] PT ID [id number] ORD# [id number] us Sujey Alfaro PA-C LAB - BLOOD DRAW Edited R esult - Final [facility] [address] [place] [address], from Last 3 Months or Most Recently Relevant to Health Maintenance Insurance [facility] MEDICARE - [place] Care Teams Last Ironer Relationship Specialty Start Date End Date Vandana Goode NP [facility] [place] [address] PCP - General Family Medicine, PROJECT CONSTRUCTION MANAGER 08/28/24
--- OUTSIDE RECORDS SUMMARY | 2025-02-15 10:18 | XMS_ITS ---
Author Organization [facility] Address [address] [place] [id number] Care Team Providers Care Upholstery Mechanic Name Role Phone KATHARINA ANGEL Primary Care Provider REASON FOR VISIT Test Strips Refills Medications Medication SIG (Take, Route, Fr equency, Duration) Notes Start Date End Date Status FreeStyle Lite Test - 1 strip once a day Dx: E11.8 for 90 days Active Encounters Encounter Location Date Provider Diagnosis [facility] [address] [address] 12/13/2024 KATHARINA ANGEL Plan Of Treatment Medication Medication Name Sig Start Date Stop Date Notes FreeStyle Lite Test - 1 strip once a day Dx: E11.8 for 90 days Next Appt Details Provider Name:KATHARINA ANGEL , 06/14/2025 09:45:00 AM, [address] [place] [address], [place], [address], Progress Notes * Amado BOSWELLaDOB: (69 yo F)Acc No.[id number]:12/13/2024 Patient:?ELBERT, Fabianka :1955???Age:69 Y???Sex:Female [facility] [address] * Refills? Refill FreeStyle Lite Test Strip, -, 90, 1 strip once a day Dx: E11.8, 90 days, Refills=11 * true * Date:? Generated for Nelly castro/Abhay/eTransmitting on:?02/15/2025 10:17 AM EDT
--- OUTSIDE RECORDS SUMMARY | 2025-02-15 10:18 | XMS_ITS | Encounter Summary ---
Author Organization [facility] Address [address] [place] [address] Care Team Providers Care Site Worker Name Role Phone Vandana Goode SERVER ENGINEER Primary Care Provider [phone] Encounter Details Date Type Department Care Team (Late st Contact Info) Description 10/21/2015 Interim Notes [facility] [address] [place] [phone] Kerrie Wooten, COUNSELOR [address] [place] [address] Social History Tobacco Use Types Packs/Day Years [...] documented as of this encounter Care Teams Site Worker Relationship Specialty Start Date End Date Vandana Goode NP [address] [place] [address] PCP - General Family Medicine, SERVER ENGINEER 08/28/24 documented as of this encounter
== END 2025-02-14 09:12 | disposition home or self-care (01) ==
LOC: HO.HOSX 09:11
PROVIDERS: Visit Provider Orthopaedic Surgery
DX: M25.531 Pain in right wrist (principal); S52.611A Displaced fracture of right ulna styloid process, initial encounter for closed fracture; S52.501A Unspecified fracture of the lower end of right radius, initial encounter for closed fracture; W00.0XXA Fall on same level due to ice and snow, initial encounter; Y93.01 Activity, walking, marching and hiking; Y92.9 Unspecified place or not applicable; Y99.9 Unspecified external cause status; R20.0 Anesthesia of skin; R20.2 Paresthesia of skin
CPT/HCPCS: 73110; 99212

== ENCOUNTER 2025-02-14 14:49 | Outpatient (AMB) | payer MEDICARE, MEDICAID, SELFPAY ==
--- NOTE | 2025-02-14 14:58 | MHC.OFFVIS ---
Vital Signs 02/14/25 15:21 Height 5 ft 2 in Weight 173 lb BMI 31.6 Intake Visit Reasons: RT distal radial & ulnar styloid 12/20/24 w/xray Intake Note: Ben is a 69 year old right hand dominant female who presents today with her son Kinza for a follow up visit of her right distal radius fracture s/p fall DOI: 12/20/24 ROM check. States she is still limited when when bending her wrist but is doing well over. She continues to wear her brace. Allergies No Known Allergies [No Known Allergies*] Allergy (Verified 02/14/25 15:28) HPI HPI RT distal radial & ulnar styloid 12/20/24 w/xray: Details: Ben is a 69 year old right hand dominant Japanese speaking woman who returns for her right distal radius & ulnar styloid fractures, S/P fall, DOI: 12/19/24. She is here for a ROM check. She was here with her grandson, who acted as a gas engine repairer. She says she is doing well overall and her pain has improved. She continues to have some difficulty bending her wrist but she has been working on her ROM at home. She continues to wear her wrist brace. She complains of some numbness in the small and ring fingers. She denies any elbow pain. [facility] Surgical History Hx of removal of cyst Social History Alcohol intake: never Patient Tobacco Use Status: Never used Tobacco Current occupational status: unemployed Current occupation: right hand dominant Review of Systems Const All systems reviewed & are unremarkable except as noted in HPI and below Physical Exam Vital Signs: BMI result Body Mass Index 31.6 Const General: no acute distress and alert Orientation/consciousness: patient oriented x3 Neuro General: patient oriented x3 Extrem Other: Evaluation of Right Upper Extremity: The patient is alert, oriented, and in no acute distress Neuro: She has some numbness in the small finger today. She says that it is constant. She has more occasional numbness and tingling in her right thumb No intrinsic or thenar wasting Vascular: Cap refill brisk ROM: With encouragement she can bring her fingers closed to a fist and back into full extension Pronation: ~60 degrees Supination: ~20 degrees Flexion: ~20 degrees Extension: ~30 degrees Her fracture was nontender today. She was again apprehensive to have her fracture touched or to move her wrist DRUJ stable Resolved swelling & ecchymosis Radiographs: 3 views of the right wrist were taken and viewed by me today in clinic. They show a distal radius fracture, intra-articular. There is a transverse component to the fracture, and an intra-articular split at the scapholunate interval, with ~5 degrees apex volar angulation. and an ulnar styloid base fracture. Satisfactory fracture alignment and good evidence of interval bony healing. Treated non-operatively in a cast. Psych Appearance: grossly normal Affect: normal affect Attitude: cooperative Assessment & Plan Assessment & Plan (1) Distal radius fracture, right: Code(s): S52.501A - Unspecified fracture of the lower end of right radius, initial encounter for closed fracture Category: Medical (2) Fracture of right ulnar styloid: Code(s): S52.611A - Displaced fracture of right ulna styloid process, initial encounter for closed fracture Category: Medical (3) Numbness and tingling in right hand: Code(s): R20.0 - Anesthesia of skin; R20.2 - Paresthesia of skin Category: Medical Plan Assessment & Plan: 1. Right distal radius fracture, comminuted, intra-articular, minimally displaced From a fall, DOI: 12/19/24 2. Right ulnar styloid base fracture From a fall, DOI: 12/19/24 These fractures were managed non operatively I educated her and her son about this condition She will discontinue her velcro wrist splint at this time I discussed activity modifications, she is to use her hand for normal daily activities. She should slowly increase to heavier activities over the next 4 weeks. She should avoid any impact activities or falls for the next few weeks She will continue to work on ROM exercises at home I ordered OT hand therapy to work on stretching & ROM exercises She will follow up in 4-6 weeks with GORGE Wood for a ROM check, no X-rays unless she has a new injury. Be sure to assess sensation at her next appointment. 3. Right hand numbness In the ulnar nerve distribution Symptoms intermittent & occasional This seems to have began following her distal radius fracture We will monitor this and manage this conservatively at this time If her symptoms do not improve by her next appointment, we may consider ordering a NCS to assess for peripheral nerve compression Scribed for Addie Riley MD by Cliff Ryan, medical billing service, on 02/14/25 at 3:45 PM, EST. Orders: Orders XR wrist RT min 3V Today M25.531 - Pain in right wrist OT Evaluation and Treatment Today S52.501A - Unspecified fracture of the lower end of right radius, initial encounter for closed fracture, S52.611A - Displaced fracture of right ulna styloid process, initial encounter for closed fracture Coding Level of Care Code Global (15853) Diagnoses Distal radius fracture, right S52.501A Fracture of right ulnar styloid S52.611A Numbness and tingling in right hand R20.0; R20.2
[2025-02-14 15:21] VITALS: BMI 31.6
--- OUTSIDE RECORDS SUMMARY | 2025-02-14 17:32 | XMS_ITS | Encounter Summary ---
Author Organization [facility] Address [address] [place] [address] Care Team Providers Care Indian Trader Name Role Phone Vandana Goode BARREL REPAIRER Primary Care Provider [phone] Encounter Details Date Type Department Care Team (Late st Contact Info) Description 10/21/2015 Interim Notes [facility] [address] [place] [phone] Kerrie Wooten, COUNSELOR [address] [place] [address] Social History Tobacco Use Types Packs/Day Years [...] documented as of this encounter Care Teams Indian Trader Relationship Specialty Start Date End Date Vandana Goode NP [address] [place] [address] PCP - General Family Medicine, BARREL REPAIRER 08/28/24 documented as of this encounter
--- OUTSIDE RECORDS SUMMARY | 2025-02-14 17:32 | XMS_ITS ---
Author Organization [facility] Address [address] [place] [phone] Care Team Providers Care Urgent Care Physician Assistant Name Role Phone KATHARINA ANGEL Primary Care Provider REASON FOR VISIT Test Strips Refills Medications Medication SIG (Take, Route, Fr equency, Duration) Notes Start Date End Date Status FreeStyle Lite Test - 1 strip once a day Dx: E11.8 for 90 days Active Encounters Encounter Location Date Provider Diagnosis [facility] [address] [phone] 12/13/2024 KATHARINA ANGEL Plan Of Treatment Medication Medication Name Sig Start Date Stop Date Notes FreeStyle Lite Test - 1 strip once a day Dx: E11.8 for 90 days Next Appt Details Provider Name:KATHARINA ANGEL , 06/14/2025 09:45:00 AM, [address] [place] [address], [place], [phone], Progress Notes * Amado BOSWELLaDOB: (69 yo F)Acc No.[id number]:12/13/2024 Patient:?ELBERT, Fabianka :1955???Age:69 Y???Sex:Female [facility] [address] * Refills? Refill FreeStyle Lite Test Strip, -, 90, 1 strip once a day Dx: E11.8, 90 days, Refills=11 * true * Date:? Generated for Nelly castro/Abhay/eTransmitting on:?02/14/2025 05:32 PM EDT
--- OUTSIDE RECORDS SUMMARY | 2025-02-14 17:32 | XMS_ITS | Patient Health Record ---
Author Organization [facility] Address [address] [place] [address] Care Team Providers Care Other Sports Official Name Role Phone KATHARINA ANGEL Primary Care Provider Allergies No Known Allergies Results Component Value Reference Range Notes Lipid Panel-[id number] Reviewed date:12/13/2024 07:45:56 AM Interpretation: Performing Lab:[facility], [address] [facility], Phone - [phone], Director - MDJodry Notes/Report: Cholesterol, Total 157 100-199 mg/dL Triglycerides 165 0-149 mg/dL HDL Cholesterol 57 >39 mg/dL VLDL Cholesterol Deric 28 5-40 mg/dL LDL Chol Calc (NIH) 72 0-99 mg/dL Comp. Metabolic Panel (14)-3 [id number] Reviewed date:12/13/2024 07:46:01 AM Interpretation: Performing Lab:[facility], [address] [facility], Phone - [phone], Director - MDJodry Notes/Report: Glucose 189 70-99 [...] ALT (SGPT) 19 0-32 IU/L Albumin/Creatinine Ratio,Uri ne-[id number] Reviewed date:12/13/2024 07:46:09 AM Interpretation: Performing Lab:[facility] [place], [address] [facility], [place], Phone - [phone], Director - MDJodry Notes/Report: Creatinine, Urine 113.6 Not Estab. mg/dL Albumin, Urine 218.3 Not Estab. ug/mL Alb/Creat Ratio 192 0-29 mg/g creat Normal: 0 - 29 Moderately increased: 30 - 300 Severely increased: >300 Hemoglobin [id number]-[id number] Reviewed date:12/13/2024 07:46:17 AM Interpretation: Performing Lab:[facility] [place], [address] [facility], [place], Phone - [phone], Director - MDJodry Notes/Report: Hemoglobin A1c 8.0 4.8-5.6 % . Prediabetes: 5.7 - 6.4 Diabetes: >6.4 Glycemic control for adults with diabetes: <7.0 Reason For Referral Reason bleeding issues Diagnosis 1 Abnormal uterine and vaginal bleeding, unspecified (N93.9) Referral Organization [facility] Referring Provider First Name [facility] Referring Provider Last Name [facility] Referred Provider Specialty OB - Gynecol ogy General Notes Please contact the p atient for scheduling Referral Priority Routine Reason EUN- Dr Moy Diagnosis 1 Anxiety disorder, un specified (F41.9) Referral Organization [facility] Referring Provider First Name [facility] Referring Provider Last Name [facility] Referring [facility] Referred Provider Specialty Psychiatry General [...] Active Diclofenac Sodium 1 % as directed Permit Technician ally daily for 30 days Active hydroCHLOROthiazide 25 MG 1 tablet in th e morning Orally Once a day for 30 days Active Tradjenta 5 MG TAKE 1 TABLET BY GALINDO TH EVERY DAY for 90 Active Vitamin D (Ergocalciferol) 1.25 MG (53246 UT) TAKE 1 CAPSULE BY MOUTH ONE [...] Disorder due to type 2 diabetes mellitus (881796418) Type 2 diabetes mellitus with unspecified complications (E11.8) Active confirmed Problem Vitamin D deficiency (84797446) Vitamin D deficiency, unspecified (E55.9) Active confirmed Problem Obesity due to excess calories (962630006) Other obesity due to excess calories (E66.09) Active confirmed Problem Mixed hyperlipidemia (874400479) Mixed hyperlipidemia (E78.2) Active confirmed Problem Mild recurrent major depression (86759555) Major depressive disorder, recurrent, mild (F33.0) Active confirmed Problem Anxiety disorder (942329700) Anxiety disorder, unspecified (F41.9) Active confirmed Problem Essential hypertension (63661714) Essential (primary) hypertension (I10) Active confirmed Problem Constipation (03659950) Constipation, unspecified (K59.00) Active confirmed Problem Polyarthritis (658733804) 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) Active confirmed Problem Degeneration of thoracolumbar intervertebral disc (61277216) Other intervertebral disc degeneration, 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) Active confirmed Problem Age-related osteoporosis (609056168) Age-related osteoporosis without current pathological fracture (M81.0) Active confirmed Problem Chronic kidney disease stage 3 (disorder) (156259464) Chronic kidney disease, stage 3 (moderate) (N18.3) Active confirmed Problem Abnormal uterine bleeding (10376764738250) Abnormal uterine and vaginal bleeding, unspecified (N93.9) Active confirmed Problem Abnormal gait (20770318) Other abnormalities of gait and mobility (R26.89) Active confirmed Problem Chronic kidney disease stage 3B (disorder) (629766632) Chronic kidney disease, stage 3b (N18.32) Active confirmed Problem History of disease caused by Severe acute respiratory syndrome coronavirus 2 (situation) (2819138400785049 05) Personal history of COVID-19 (Z86.16) Active confirmed Problem Anxiety state (190708388) Anxiety state, unspecified (F41.1) Active confirmed Problem Abnormal gait (64140740) Gait instability (R26.81) Active confirmed Vital Signs Heart Rate 80 /min 12/13/2024 Temperature 97.3 degrees Fahrenheit 12/13/2024 Blood pressure diastolic 80 mm Hg 12/13/2024 Oximetry 98 % 12/13/2024 Height 61 in 12/13/2024 Blood pressure systolic 130 mm Hg 12/13/2024 Weight 175.2 lbs 12/13/2024 BMI 33.1 kg/m2 12/13/2024 Encounters Encounter Location Date Provider Diagnosis [address] [place] [address] 02/23/2024 KATHARINA ANGEL Type 2 diabetes bo itus with unspecified complications E11.8 ; Abnormal uterine and vaginal bleeding, unspecified N93.9 ; Essential (primary) hypertension I10 and Chronic kidney disease, stage 3 (moderate) N18.[address] [place] [address] 06/12/2024 KATHARINA ANGEL Type 2 diabetes bo itus with unspecified complications E11.8 ; Essential (primary) hypertension I10 ; Mixed hyperlipidemia E78.2 and Chronic kidney disease, stage 3 (moderate) N18.[address] [place] [address] 12/13/2024 KATHARINA ANGEL Encounter for genera l adult medical examination without abnormal findings Z00.00 ; Type 2 diabetes mellitus with unspecified complications E11.8 ; Essential (primary) hypertension I10 ; Mixed hyperlipidemia E78.2 ; Chronic kidney disease, stage 3b N18.32 ; Age-related osteoporosis without current pathological fracture M81.0 ; Other obesity due to excess calories E66.09 and Dietary counseling and surveillance Z71.[address] [place] [address] 04/25/[address] [place] [place] [address] 06/13/[address] [place] [address] 12/13/[address] [place] [address] 12/22/2024 [place] [address] [facility] [address] [place] [address] 01/04/2025 KATHARINA ANGEL Assessments Encounter Date Diagnosis [...] on right medications. She has seen her services manager in the past 1 year. Foot care discussed. Check A1c. Hypertension with kidney disease. Blood pressure well controlled on current regimen. Advised appropriate hydration. Check basic panel. Chronic kidney disease stage 3. She does not appear to be in volume overload. Advised appropriate hydration. Avoid NSAIDs.She follows up with office 365 consultant General health concerns discussed with patient. Scribe services used to formulate this note under HIPAA compliance and under [place] law mandated for scribe services. Patient aware [...] on right medications. She has seen her services manager in the past 1 year. Foot care discussed. Check A1c. Hypertension with kidney disease. Blood pressure well controlled on current regimen. Advised appropriate hydration. Check basic panel. Chronic kidney disease stage 3. She does not appear to be in volume overload. Advised appropriate hydration. Avoid NSAIDs.She follows up with office 365 consultant General health concerns discussed with patient. Scribe services used to formulate this note under HIPAA compliance and under [place] law mandated for scribe services. Patient aware [...] on right medications. She has seen her services manager in the past 1 year. Foot care [...] appropriate hydration. Avoid NSAIDs.She follows up with office 365 consultant Class 1 obesity. Advised dietary restrictions and [...] this note under HIPAA compliance and under [place] law mandated for scribe services. Patient aware of service. Verbal consent and written consent taken from the patient. Patient understands and verbalizes understanding of the scribes services and all questions answered regarding scribes services. Patient agrees to use of scribes services. 12/13/2024 Type 2 diabetes mellitus with unspecified complications (ICD-10 - E11.8) is 69 years old Nepali speaking lady is accompanied by her daughter [...] lisinopril, atorvastatin and Zetia. She is seen services manager in the past 1 year. Foot care [...] Dr. Camarillo. Multiple joint osteoarthritis. She takes iqnd-tgq-nxwleat Tylenol and also takes tizanidine 2 mg [...] (ICD-10 - Z00.00) is 69 years old Nepali speaking lady is accompanied by her daughter [...] lisinopril, atorvastatin and Zetia. She is seen services manager in the past 1 year. Foot care [...] Dr. Camarillo. Multiple joint osteoarthritis. She takes dkco-eip-gvuyugu Tylenol and also takes tizanidine 2 mg [...] (ICD-10 - I10) is 69 years old Nepali speaking lady is accompanied by her daughter [...] lisinopril, atorvastatin and Zetia. She is seen services manager in the past 1 year. Foot care [...] Dr. Camarillo. Multiple joint osteoarthritis. She takes nkya-hvc-qsnpylc Tylenol and also takes tizanidine 2 mg [...] on right medications. She has seen her services manager in the past 1 year. Foot care [...] appropriate hydration. Avoid NSAIDs.She follows up with office 365 consultant Class 1 obesity. Advised dietary restrictions and [...] this note under HIPAA compliance and under [place] law mandated for scribe services. Patient aware [...] on right medications. She has seen her services manager in the past 1 year. Foot care discussed. Check A1c. Hypertension with kidney disease. Blood pressure well controlled on current regimen. Advised appropriate hydration. Check basic panel. Chronic kidney disease stage 3. She does not appear to be in volume overload. Advised appropriate hydration. Avoid NSAIDs.She follows up with office 365 consultant General health concerns discussed with patient. Scribe services used to formulate this note under HIPAA compliance and under [place] law mandated for scribe services. Patient aware [...] on right medications. She has seen her services manager in the past 1 year. Foot care discussed. Check A1c. Hypertension with kidney disease. Blood pressure well controlled on current regimen. Advised appropriate hydration. Check basic panel. Chronic kidney disease stage 3. She does not appear to be in volume overload. Advised appropriate hydration. Avoid NSAIDs.She follows up with office 365 consultant General health concerns discussed with patient. Scribe services used to formulate this note under HIPAA compliance and under [place] law mandated for scribe services. Patient aware [...] on right medications. She has seen her services manager in the past 1 year. Foot care [...] appropriate hydration. Avoid NSAIDs.She follows up with office 365 consultant Class 1 obesity. Advised dietary restrictions and [...] this note under HIPAA compliance and under [place] law mandated for scribe services. Patient aware of service. Verbal consent and written consent taken from the patient. Patient understands and verbalizes understanding of the scribes services and all questions answered regarding scribes services. Patient agrees to use of scribes services. 12/13/2024 Mixed hyperlipidemia (ICD-10 - E78.2) is 69 years old Nepali speaking lady is accompanied by her daughter [...] lisinopril, atorvastatin and Zetia. She is seen services manager in the past 1 year. Foot care [...] Dr. Camarillo. Multiple joint osteoarthritis. She takes okkc-bsc-xhehvmi Tylenol and also takes tizanidine 2 mg [...] on right medications. She has seen her services manager in the past 1 year. Foot care [...] appropriate hydration. Avoid NSAIDs.She follows up with office 365 consultant Class 1 obesity. Advised dietary restrictions and [...] this note under HIPAA compliance and under [place] law mandated for scribe services. Patient aware of service. Verbal consent and written consent taken from the patient. Patient understands and verbalizes understanding of the scribes services and all questions answered regarding scribes services. Patient agrees to use of scribes services. 12/13/2024 Chronic kidney disease, stage 3b (ICD-10 - N18.32) is 69 years old Nepali speaking lady is accompanied by her daughter [...] lisinopril, atorvastatin and Zetia. She is seen services manager in the past 1 year. Foot care [...] Dr. Camarillo. Multiple joint osteoarthritis. She takes mciz-mki-juziaiq Tylenol and also takes tizanidine 2 mg [...] (ICD-10 - M81.0) is 69 years old Nepali speaking lady is accompanied by her daughter [...] lisinopril, atorvastatin and Zetia. She is seen services manager in the past 1 year. Foot care [...] Dr. Camarillo. Multiple joint osteoarthritis. She takes bljq-yre-cpgqnjw Tylenol and also takes tizanidine 2 mg [...] (ICD-10 - E66.09) is 69 years old Nepali speaking lady is accompanied by her daughter [...] lisinopril, atorvastatin and Zetia. She is seen services manager in the past 1 year. Foot care [...] Dr. Camarillo. Multiple joint osteoarthritis. She takes wimy-uql-cfvsabo Tylenol and also takes tizanidine 2 mg [...] (ICD-10 - Z71.3) is 69 years old Nepali speaking lady is accompanied by her daughter [...] lisinopril, atorvastatin and Zetia. She is seen services manager in the past 1 year. Foot care [...] Dr. Camarillo. Multiple joint osteoarthritis. She takes bchm-ehv-uotqvmh Tylenol and also takes tizanidine 2 mg [...] Future Test Test Name Order Date Hemoglobin [id number] 12/13/2024 Next Appt Details Provider Name:KATHARINA ANGEL , 06/14/2025 09:45:00 AM, [address] [place] [address] [address], [place], [address], Insurance Providers Payer Name Payer Address Payer Phone Subscriber Number Group Number Insured Name Patient Relationship to Insured Coverage Start Date Coverage End Date Medicare [address] [place] [phone] [id number] Ben Boswell Self - patient is the insured 1 [place] Medicaid [address] [place] [address] [id number] Ben Boswell Self - patient is the insured A[employer] Supplement [address] [place] [address] [id number] Ben Boswell Self - patient is the insured Medical (General) History Medical History History ICD Code hypertension hyperlipidemia CKD stage 3 see Renal diabetes mellitus type 2 anxiety/depression and see Therapist Personal history of COVID-19 10/[address] Hanna Surgical History Surgery Date(Month/Year) hysterectomy
--- OUTSIDE RECORDS SUMMARY | 2025-02-14 17:33 | XMS_ITS ---
Author Organization [facility] Address [address] [place] [address] Care Team Providers Care Associate Quality Engineer Name Role Phone KATHARINA ANGEL Primary Care Provider REASON FOR VISIT referral to Dr. Moy Encounters Encounter Location Date Provider Diagnosis [facility] [address] [address] 12/22/2024 KATHARINA ANGEL Plan Of Treatment Next Appt Details Provider Name:KATHARINA ANGEL , 06/14/2025 09:45:00 AM, [address] [place] [address] [address], [place], [address], Progress Notes * Rex BOSWELLB: (69 yo F)Acc No.[id number]:12/22/2024 Patient:?ELBERT, Fabianka :1955???Age:69 Y???Sex:Female Address:[address], [place] [address] * true * Date:? Generated for Printi gloria/Abhay/eTransmitting on:?02/14/2025 05:32 PM EDT
--- OUTSIDE RECORDS SUMMARY | 2025-02-14 17:33 | XMS_ITS | Clinical Summary ---
Author Organization [facility] Address [address] [place] [address] Phone Care Team Providers Care Blacking Machine Operator Name Role Phone Yang Fernando MD Primary Care Provider [phone] Allergies No known active allergies Medications Trulicity [...] MG tablet 2 Active ergocalciferol 1.25 MG (99954 UT) capsule Take 50,000 Units by mouth [...] 08/24/2019 Overview (11/24/2021): 08/19/19 - seen at [facility] ED c/o vaginal bleeding. Pelvis U/S: IMPRESSION: [...] Near syncope 01/11/2018 Overview (11/24/2021): 12/21-12/22/17 - [facility] Ed for episode of syncope/ unreponsivenss following [...] diabetes mellitus without complication Visual impairment 06/01/2013 Immunizations Immunization Administration Dates Next Due Influenza TIV (IM) [...] Office Visit [facility] [address] [address] Taqueria Cordero MD [address] [address] Health Maintenance Due Date Last Done Comments Breast Cancer Screening 1955 Colorectal Cancer Screening: Annual FOBT 2004 Colorectal Cancer Screening: Colonoscopy 2004 Colorectal Cancer Screening: Sigmoidoscopy 2004 Pneumococcal Vaccine: 50+ Years (3 of 3 - PPSV23, PCV20 or PCV21) 06/01/2018 12/30/2016, 06/01/2013 Diabetes: Ophthalmology Exam 03/21/2021 Diabetes: Pedal Pulse Checked 03/21/2021 Diabetes: Sensory Foot Exam 03/21/2021 Diabetes: Visual Foot Exam 03/21/2021 Diabetes: Hemoglobin A1C 09/02/2022 022, 12/15/2021, 01/14/2021 Influenza Vaccine (Season Ended) 2025 08/26/2017, 12/19/2015, 07/09/2015 Pneumococcal Vaccine: Peds ( 0 to 5 Years) and At-Risk Patients (6 to 49 Years) Discontinued 12/30/2016, 06/01/2013 Hepatitis B Vaccine Aged Out No longe [...] Creatinine, Ur 113.6 Not Estab. mg/dL [facility] Albumin, Urine 225.2 Not Estab. ug/mL [facility] Albumin/Creatin ine Ratio 198(H) 0 - 29 mg/g creat [facility] Comment: ? Normal: ?0 - ??29 ? Moderately increased: 30 - 300 ? Severely increased: ? >300 Urine (Urine, Clean Catch) 12/11/2024 10:35 AM EST 12/11/2024 us Taqueria Cordero MD LAB URINE ORDERABLES Final Resul t [facility] [place] [address] [place] [address] * (ABNORMAL) Vit D 25 hydroxy (12/11/2024 10:35 AM EST) Vitamin D, 25-OH, Total 24.0(L) 30.0 - 100.0 ng/mL [facility] Comment: Vitamin D deficiency has been defined by the [place] of Medicine and an Endocrine Society practice guideline as a level of serum 25-OH vitamin D less than 20 ng/mL (1,2). The Endocrine Society went on to further define vitamin D insufficiency as a level between 21 and 29 ng/mL (2). 1. IOM ([place] of Medicine). 2010. Dietary reference ?? intakes for calcium and D. [place]: The ?? National [employer]. 2. Shari MF, Lillian WALLACE, Nathan FERRELL, et al. ?? Evaluation, treatment, and prevention of vitamin D ?? deficiency: an Endocrine Society clinical practice ?? guideline. JCEM. 2010; 96(7):1911-30. Blood (Blood, Venous) 12/11/2024 10:35 AM EST 12/11/2024 Taqueria Cordero MD LAB BLOOD ORDERABLES Final Resul t Performing Organization Address City[facility] Co de Phone Number [facility] [place] [address] [place] [address] * (ABNORMAL) PTH, intact (12/11/2024 10:35 AM EST) PTH 96(H) 15 - 65 pg/mL [facility] Blood (Blood, Venous) 12/11/2024 10:35 AM EST 12/11/2024 Taqueria Cordero MD LAB BLOOD ORDERABLES Final Resul t Performing Organization Address [facility] Co de Phone Number [facility] [place] [address] [place] [address] * (ABNORMAL) Renal funtion panel (12/11/2024 10:35 AM EST) Glucose 190(H) 70 - 99 mg/dL [facility] BUN 35(H) 8 - 27 mg/dL [facility] Creatinine 1.57(H) 0.57 - 1.00 mg/dL [facility] eGFR CKD-EPI CR 2020 35(L) >59 mL/min/1.7 3 [facility] BUN/Creatinine Ratio 22 12 - 28 [facility] Sodium 139 134 - 144 mmol/L [facility] Potassium 4.8 3.5 - 5.2 mmol/L [facility] Chloride 104 96 - 106 mmol/L [facility] Bicarbonate (CO2) 19(L) 20 - 29 mmol/L [facility] [place] Calcium 9.8 8.7 - 10.3 mg/dL [facility] Albumin 4.4 3.9 - 4.9 g/dL [facility] Phosphorus 3.6 3.0 - 4.3 mg/dL [facility] Blood (Blood, Venous) 12/11/2024 10:35 AM EST 12/11/2024 Taqueria Cordero MD LAB BLOOD ORDERABLES Final Resul t [facility] [address] [place] [address] * (ABNORMAL) Hemoglobin A1c (06/02/2022 2:46 PM EDT) Hemoglobin A1C 7.5(H) (4.0-5.6) % [facility] Comment: MONITORING: In known diabetic patients, hemoglobin A1c targets should be discussed with health care provider. DIAGNOSTIC USE: ??The [place] Diabetes Association (ADA) and the World Health [...] Supplement 1 Testing performed or reported by [facility], a Service of [facility], [address] [place] [address] Khanh Lopez MD, Cementer Hand [facility]# [id number] Blood (Blood, Venous) 06/02/2022 2:46 PM EDT 06/02/2022 2:49 PM EDT Kartik Ureña MD LAB BLOOD ORDERABLES Final Re sult [facility] from Last 3 Months or Most Recently Relevant to Health Maintenance Insurance Medicare Medicaid [place] Medicare Medicaid [place] Care Teams Blacking Machine Operator Relationship Specialty Start Date End Date Yang Fernando MD [address] [place] [address] PCP - General Internal Medicine 12/02/21
--- OUTSIDE RECORDS SUMMARY | 2025-02-14 17:33 | XMS_ITS ---
Author Organization [facility] Address [address] [place] [address] Care Team Providers Care Substation Operator Automatic Name Role Phone KATHARINA ANGEL Primary Care Provider [phone] REASON FOR VISIT Psych referral Encounters Encounter Location Date Provider Diagnosis [address] [address] 01/04/2025 KATHARINA ANGEL Plan Of Treatment Next Appt Details Provider Name:KATHARINA ANGEL , 06/14/2025 09:45:00 AM, [address] [place] [address], [place], [address], Progress Notes * Rex BOSWELLB: (69 yo F)Acc No.[id number]:01/04/2025 Patient:?Susanna BOSWELLbianka :1955???Age:69 Y???Sex:Female [address]:[place] [address] * true * Date:? Generated for Constanzai gloria/Abhay/eTransmitting on:?02/14/2025 05:32 PM EDT
--- OUTSIDE RECORDS SUMMARY | 2025-02-14 17:33 | XMS_ITS | Clinical Summary ---
Author Organization [facility] Address [address] [place] [address] Care Team Providers Care Waiter/Waitress Take Out Name Role Phone Vandana Goode NP Primary Care Provider [phone] Source Comments PLEASE NOTE, if this patient [...] complication, without long-term current use of insulin ([facility]) 1 Strip as needed for high blood sugar Dx.: E11.9 Use tid as directed for dm 100 Each 11 09/19/20 18 Active blood-glucose meter (FREESTYLE LITE METER) monitoring kitIndications:T ype 2 diabetes mellitus without complication, without long-term current use of insulin ([facility]) as needed for blood glucose monitoring 1 Each 09/19/20 18 Active lancetsIndicatio ns:Type 2 diabetes mellitus without complication, without long-term current use of insulin ([facility]) Freestyle lite lancets Dx.: E11.9 Use tid [...] complication, without long-term current use of insulin ([facility]),Essent ial hypertension TAKE 1 TABLET BY MOUTH EVERY DAY 30 Tablet 11 12/02/19 21 Active DULoxetine (CYMBALTA) [address] capsuleIndicatio ns:Current severe episode of major depressive disorder without psychotic features without prior episode ([facility]) Take 1 Capsule by mouth once [...] complication, without long-term current use of insulin ([facility]) TAKE 1 TABLET BY MOUTH ONCE [...] complication, without long-term current use of insulin ([facility]) TAKE 1 TABLET BY MOUTH ONCE DAILY WITH BREAKFAST 30 Tablet 2 10/12/20 22 Active Active Problems Problem Noted Date Diagnosed Date Class 1 obesity due to exces s calories with serious comorbidity and body mass index (BMI) of 31.0 to 31.9 in adult 03/25/2021 Current severe episode of ma alis depressive disorder without psychotic features without prior episode ([facility]) 02/27/2021 Endometrial polyp 08/20/2020 Overview (08/20/2020): 07/22/[address] Bolton Post-menopausal bleeding 08/24/2019 Overview (08/24/2019): 08/19/19 - seen at [facility] ED c/o vaginal bleeding. Pelvis U/S: [...] kidney disease) stage 3, GFR 30-59 ml/min ([facility]) 01/16/2018 Overview (11/06/2024): 11/06/24 f/u Dr [...] episode 12/21/17 01/11/2018 Overview (01/11/2018): 12/21-12/22/17 - [facility] Ed for episode of syncope/ unreponsivenss following an emotional conversation with son who is in [place]. She had NIH score of 3 initially for being nonverbal but otherwise normal. CT and CTA h/n of head neg, tele monitoring without any cardiac arrthymias. Discharged next day. Outpatient ECHO and Holter monitor recommended Pap smear of cervix declined 12/30/2016 Colonoscopy refused 12/30/2016 Non-Maltese speaking patient 10/13/2016 Non compliance with medical [...] c3-4 foramen. Coronary artery disease invo lving [place] heart with angina pectoris ([facility]) 09/05/2015 Left shoulder pain 09/04/2015 Overview [...] complication, without long-term current use of insulin ([facility]) 06/01/2013 Resolved Problems Problem Noted Date Diagnosed Date Resolved Date Intractable vomiting with nausea 10/15/2015 03/07/2016 Overview (12/07/2015): 11/30/15- u/s of gall bladder- fatty liver. - no cholelithiasis or Cholecystitis. Neck pain 09/04/2015 10/22/2015 Musculoskeletal chest pain 09/04/2015 0 07/07/2018 Immunizations Immunization Administration Dates Next Due Flu, Multi Dose [...] - PCV20 or PCV21) 12/30/2021 12/30/2016, 06/01/2013 Lipid Screening 01/14/2022 01/14/2021, 12/30, 12/30/2016, Additional history exists Serum Creatinine 01/14/2022 01/14/2021, , 08/01/2019, Additional history exists Urine Albumin Creatinine Rat io Screening 01/14/2022 01/14/2021, 12/07/2018, 05/01/2015 Medicare Annual Wellness Visit 02/27/2022 0 02/27/2021, 12/07/2018, 12/30/2016, Additional history exists Diabetes HbA1c 12/03/2022 06/02/2022, 08/0 12/2021, 12/15/2021, Additional history exists [id number] ( season) 2024 021, 12/28/2020 Imm-Influenza (#1) [...] complication, without long-term current use of insulin ([facility]) LIPID PANEL Routine 01/14/2021 12:00 PM EDT Type 2 diabetes mellitus without complication, without long-term current use of insulin ([facility]) HEMOGLOBIN GLYCOSYLATED A1C Routine 01/14/2021 12:00 PM EDT Type 2 diabetes mellitus without complication, without long-term current use of insulin ([facility]) MICROALBUMIN/CREATININ E RATIO, URINE, RANDOM Routine 01/14/2021 11:54 AM EDT Type 2 diabetes mellitus without complication, without long-term current use of insulin ([facility]) MAMMOGRAM, ABSTRACTED DISCRETE Routine 06/23/2019 8:55 AM EDT DILATED RETINAL EXAM W/EVIDENCE OF RETINOPATHY Routine 07/21/2018 8:36 AM EDT HEPATITIS A,B,C PANEL Routine 01/14/2018 10:53 AM EDT Encounter to establish care from Last 3 Months or Most Recently Relevant to Health Maintenance Results * (ABNORMAL) HEMOGLOBIN, GLYCOSYLATED (A1C) (01/14/2021 12:00 PM EDT) GLYCATED HEMOGLOBIN A1C 8.4(H) <6.5 % [facility] ESTIMATED AVERAGE GLUCOSE 194 mg/dL [facility] Blood Blood / Unknown 01/14/2021 1 2:00 PM EDT 01/14/2021 4:23 PM EDT [facility] - 01/14/2021 8:07 PM EDT [employer], [place] [address] Mortgage Or Loan Underwriter - Leandra Anderson MD PT ID [id number] ORD# [id number] Melissa Reyes [facility] - BLOOD DRAW Final Re sult Performing Organization Address City/[facility]/ZIP Co de Phone Number [address] [address], * (ABNORMAL) LIPID PANEL (01/14/2021 12:00 PM EDT) CHOLESTEROL 168 0 - 200 mg/dL [facility] TRIGLYCERIDES 198(H) 0 - 150 mg/dL [facility] HDL CHOLESTEROL 62 >40 mg/dL [facility] LDL CALCULATED 67 0 - 100 mg/dL [facility] TC-HDLC RATIO 2.7 0 - 4.4 mg/dL [facility] Blood Blood / Unknown 01/14/2021 1 2:00 PM EDT 01/14/2021 4:23 PM EDT Narrative [facility] - 01/14/2021 5:10 PM EDT [facility] [employer], [place] [address] Mortgage Or Loan Underwriter - Leandra Anderson MD PT ID [id number] ORD# [id number] Melissa Reyes [facility] - BLOOD DRAW Final Re sult Performing Organization Address City/[facility]/ZIP Co de Phone Number [address] [address], * (ABNORMAL) COMPRE METAB PANEL (01/14/2021 12:00 PM EDT) GLUCOSE 260(H) 70 - 100 mg/dL [facility] Comment:Reference range appl icable to fasting specimens only BUN 54(H) 5 - 25 mg/dL [facility] CREAT 1.49(H) 0.5 - 1.1 mg/dL [facility] GLOMERULAR FILTRATION RATE 35 [facility] Comment: If patient is -Bolivian, multiply result by 1.21 Chronic Kidney Disease: < 60 ml/min/1.73 square meters Kidney Failure: < 15 ml/min/1.73 square meters SODIUM 137 135 - 145 mEq/L [facility] POTASSIUM 4.1 3.5 - 5.5 mmol/L [facility] CHLORIDE 104 96 - 110 mmol/L [facility] CO2 24 21 - 32 mmol/L [facility] ANION GAP 9 3 - 11 [facility] CALCIUM 10.0 8.5 - 10.5 mg/dL [facility] TOTAL PROTEIN 7.6 6.0 - 8.0 G/dL [facility] ALBUMIN 4.0 3.2 - 5.0 G/dL [facility] BILI, TOTAL 0.5 0.0 - 1.4 mg/dL [facility] SGOT 12 10 - 42 U/L [facility] SGPT 28 10 - 60 U/L [facility] ALK PHOS 137(H) 42 - 121 U/L [facility] Blood Blood / Unknown 01/14/2021 1 2:00 PM EDT 01/14/2021 4:[address] [facility] - 01/14/2021 5:10 PM EDT [facility], [place] [address] Mortgage Or Loan Underwriter - Leandra Anderson MD PT ID [id number] ORD# [id number] Melissa Reyes [facility] - [place] [address], * MICROALBUMIN/CREATININE RATIO, URINE, RANDOM (01/14/2021 11:54 AM EDT) CREATININE, RANDOM URINE 113 mg/dL [facility] MICROALBUMIN, RANDOM 15.7 0.0 - 29.0 mg/L [facility] MICROALB/CRE RATIO RANDOM 13.8 0.0 - 30.0 mg/G [facility] Urine Urine specimen / Unknown 01/14/2021 11:54 AM EDT 01/14/2021 4:23 PM EDT Narrative [facility] - 01/14/2021 5:24 PM EDT [facility] [employer], a member of [address] [address] Mortgage Or Loan Underwriter - Leandra Anderson MD PT ID [id number] ORD# [id number] Melissa Reyes [facility] - NO BLOOD DRAW Edite d Result - Final [address] [address], * MAMMOGRAM, ABSTRACTED (06/23/2019 8:55 AM EDT) MAMMOGRAM NEGATIVE NEGATIVE Anatomical Region Laterality Modality Other Impressions 06/23/2019 8:55 AM EDT No mammogramic evidence of malignancy BIRADS - 1 negative repeat 1 year Provider [facility] Final Result * DILATED RETINAL EYE EXAM WITH INTERPRETATION BY AN FULL STACK SOFTWARE DEVELOPER OR POST TENSIONING IRONWORKER DOCUMENTED AND REVIEWED (DM)4 (07/21/2018 8:36 AM EDT) Impressions Danielle Neumann MA - 07/21/2018 8:36 AM EDT DM diabetes with mild, non-proliferative diabetic retinopathy noted- both eyes Repeat 1 year Provider [facility] OTHER Final Result * (ABNORMAL) HEPATITIS A,B,C PANEL (01/14/2018 10:53 AM EDT) HEPATITIS B SURFACE ANTIBODY NEGATIVE NEGATIVE [facility] HEPATITIS B SURFACE ANTIGEN NEGATIVE NEGATIVE [facility] Comment: Over the counter supplements containing high doses of biotin may interfere with this assay. ??If interference is suspected, patients shoud be retested after refraining from biotin supplements for 72 hours. HEPATITIS C VIRUS DIAGNOSTIC NEGATIVE NEGATIVE [facility] HEPATITIS A ANTIBODY TOTAL POSITIVE(A) NEGATIVE [facility] Comment: Over the counter supplements containing high doses of biotin may interfere with this assay. ??If interference is suspected, patients shoud be retested after refraining from biotin supplements for 72 hours. HEPATITIS B CORE ANTIBODY NEGATIVE NEGATIVE [facility] Blood specimen (specimen) Blood / Unknown 01/14/2018 10:53 AM EDT 01/14/2018 10:56 AM EDT Narrative [facility] - 01/14/2018 12:46 PM EDT [employer] [address] [place] [address] PT ID [id number] ORD# [id number] us Sujey Alfaro PA-C LAB - BLOOD DRAW Edited R esult - Final [facility] [address] [place] [address], from Last 3 Months or Most Recently Relevant to Health Maintenance Insurance [facility] MEDICAID MEDICARE - [place] Care Teams Waiter/Waitress Take Out Relationship Specialty Start Date End Date Vandana Goode NP [facility] [place] [address] PCP - General Family Medicine, SR. MANAGER 08/28/24
== END 2025-02-14 16:03 | disposition home or self-care (01) ==
LOC: HO.HOS 14:49
PROVIDERS: Visit Provider Orthopaedic Surgery
DX: S52.501A Unspecified fracture of the lower end of right radius, initial encounter for closed fracture (principal); S52.611A Displaced fracture of right ulna styloid process, initial encounter for closed fracture; R20.0 Anesthesia of skin; R20.2 Paresthesia of skin
CPT/HCPCS: 99024

== ENCOUNTER → 2025-02-14 15:08 | Outpatient (BNV) | payer MEDICARE, MEDICAID, SELFPAY | PROVIDERS: Visit Provider Specialist | DX: M25.531 Pain in right wrist (principal); S52.501D Unspecified fracture of the lower end of right radius, subsequent encounter for closed fracture with routine healing | CPT/HCPCS: 73110 ==

== ENCOUNTER 2025-02-24 11:12 | Emergency (ER) | payer MEDICARE, MEDICAID, SELFPAY ==
--- NOTE | ~2025-02-24 | XR_ITS ---
CLINICAL HISTORY: pain 3 view right ankle Comparison: None Findings: Bones intact. No dislocations. No significant loss of joint space, osteophytes, or erosions. No ankle effusion. There is soft tissue edema. No radiopaque foreign body. IMPRESSION: No acute fracture. This document has been electronically signed by: Concetta Montgomery MD on 02/24/2025 13:17:51
--- NOTE | ~2025-02-24 | US_ITS ---
CLINICAL HISTORY: pain Venous duplex ultrasound right lower extremity Comparison: None Findings: The visualized deep veins are fully compressible with normal Doppler color flow and spectral tracings. No popliteal cyst. IMPRESSION: 1. Negative for right lower extremity deep vein thrombosis. This document has been electronically signed by: Shemar Lawson MD on 02/24/2025 12:09:28
--- NOTE | ~2025-02-24 | XR_ITS ---
CLINICAL HISTORY: Proximal dorsal Pain, swelling 3 view right foot Comparison: None Findings: No fractures or dislocations. Mild degenerative change of the 1st metatarsophalangeal joint. Hallux valgus. Calcaneal enthesophytes. Degenerative changes of the midfoot with osteophytes. No ankle effusion. Soft tissue edema of the foot. No radiopaque foreign body. IMPRESSION: No acute fracture. This document has been electronically signed by: Concetta Montgomery MD on 02/24/2025 14:08:02
[2025-02-24 11:23] VITALS: BP 136/66; PULSE 84; RESP 18; TEMP 36.8; O2SAT 97; BMI 28.1
--- NOTE | 2025-02-24 11:25 | ED_ITS ---
HPI - General Adult General Chief complaint: Extremity Injury, Lower Stated complaint: r foot inj Time Seen by Provider: 02/24/25 11:33 Source: patient Mode of arrival: ambulatory Limitations: language barrier (chinese speaking) History of Present Illness ED Provider: Gabby Baldwin NP HPI narrative: Patient is a 69-year-old female who presents emergency department for evaluation of atraumatic right ankle/foot and swelling for 2 days. Primarily localized to the proximal dorsum of the foot and diffusely throughout the ankle. Not certain whether there was any precipitating injury. Pain has progressively worsened. Has tried topical diclofenac gel with only minimal change. Feel she is unable to walk/weightbear on the foot at this time. No numbness or tingling to the extremity. Denies any shortness of breath, chest pain, difficulty breathing. Denies history of VTE/malignancy. Related Data Home Medications ?Medication ?Instructions ?Recorded ?Confirmed amlodipine 5 mg tablet mg PO DAILY 12/26/24 atorvastatin 20 mg tablet mg PO DAILY 12/26/24 cholecalciferol (vitamin D3) 25 25 mcg PO DAILY 12/26/24 mcg (1,000 unit) tablet dulaglutide 3 mg/0.5 mL mg subcut QWEEK 12/26/24 subcutaneous pen injector (Trulicity) ezetimibe 10 mg tablet mg PO DAILY 12/26/24 insulin glargine 100 unit/mL (3 unit subcut 12/26/24 mL) subcutaneous pen (Lantus Solostar U-100 Insulin) linagliptin 5 mg tablet (Tradjenta) mg PO DAILY 12/26/24 lisinopril 40 mg tablet mg PO DAILY 12/26/24 sertraline 100 mg tablet 100 mg PO DAILY 12/26/24 Allergies Allergy/AdvReac Type Severity Reaction Status Date / Time No Known Allergies Allergy Verified 02/24/25 11:24 [No Known Allergies*] Review of Systems Review of Systems: Yes all other systems are reviewed and are negative PMFSH Past Medical History Attestation statement: The following information was validated with the patient. Source: old records reviewed Surgical History Hx of removal of cyst Social History Social History Alcohol intake: never Patient Tobacco Use Status: Never used Tobacco Advance Directives: No Advance Directives Information Provided: No Current occupational status: unemployed Current occupation: right hand dominant Physical Exam ED Vital Signs: Vital Signs - 24 hr 02/24/25 11:23 02/24/25 12:12 02/24/25 14:06 Temperature 98.3 F 98.3 F 98.2 F Pulse Rate 84 78 77 Respiratory Rate 18 18 16 Blood Pressure 136/66 119/62 143/54 H Pulse Oximetry 97 99 100 Oxygen Delivery Method Room Air Room Air Room Air BMI result Body Mass Index 28.1 Appearance: Alert.?Oriented to person, place and time. No acute distress.?Normal affect. CVS: Heart sounds normal. Normal heart rate and rhythm.? Pulses normal.?? Respiratory: No respiratory distress.? Lung sounds clear to auscultation bilaterally?? Abdomen: Soft and non-tender. Normoactive bowel sounds. Skin: Skin warm and dry.? Normal skin color.? Extremities: There is localized swelling to the dorsum of the right foot throughout the ankle with tenderness upon palpation. 2+ DP/PT pulse. No calf tenderness. No obvious deformity. Neuro: Moves all extremities spontaneously. Sensation intact bilaterally. No focal neuro deficits. Ambulates with antalgia gait. Course Course Course Narrative: RME, this is a rapid medical exam performed by Ean Vasquez please refer to primary provider for complete H&P- 69-year-old female who is primarily Chinese speaking presents for evaluation right ankle pain and swelling. She denies any injury to ankle or foot. The pain seemed to started yesterday but worsened today and she was now unable to walk. Plan for x-ray of the right ankle and ultrasound of the right lower extremity Reevaluation(s) Reevaluation #1: XR of the ankle and foot without acute pathology. Venous duplex ultrasound without evidence of DVT. Reviewed conservative treatment, rest, ice, compression elevation, use of acetaminophen, outpatient follow-up with PCP. Medical Decision Making Medical Decision Making MDM Narrative: Patient is a 69-year-old female who presents to the emergency department for evaluation of atraumatic right foot/ankle pain and swelling over the past 2 days as per HPI. The extremities neurovascularly intact distally at the time of my evaluation. She has decreased AROM secondary to pain. Pending venous duplex ultrasound to evaluate for possible DVT, and XR imaging to evaluate for possible fracture, lower suspicion for dislocation. She was not certain whether there was any precipitating injury, may be secondary to possible sprain or contusion. There is no erythema or warmth, not consistent with septic joint. Not consistent with gout presentation. Differential Diagnosis Differential Diagnoses: The differential diagnosis associated with the presentation includes (See narrative above) Admission/Observation Consideration of admission/observation: Escalation of care including admission/observation considered Radiology Impression Discussion of test interpretation with radiology: I have reviewed the radiologist's reading. Radiologist Impression: Venous duplex ultrasound right lower extremity Comparison: None Findings: The visualized deep veins are fully compressible with normal Doppler color flow and spectral tracings. No popliteal cyst. IMPRESSION: 1. Negative for right lower extremity deep vein thrombosis. 3 view right ankle Comparison: None Findings: Bones intact. No dislocations. No significant loss of joint space, osteophytes, or erosions. No ankle effusion. There is soft tissue edema. No radiopaque foreign body. IMPRESSION: No acute fracture. 3 view right foot Comparison: None Findings: No fractures or dislocations. Mild degenerative change of the 1st metatarsophalangeal joint. Hallux valgus. Calcaneal enthesophytes. Degenerative changes of the midfoot with osteophytes. No ankle effusion. Soft tissue edema of the foot. No radiopaque foreign body. IMPRESSION: No acute fracture. Independent Historian Clinical information obtained from an independent historian. History obtained from or confirmed by: Other (Son) Discharge Plan Discharge Clinical Impression: Acute ankle pain Patient Disposition: Home, Self-Care Instructions: Arthralgia (ED), Crutch Instructions (ED) Additional Instructions: X-ray imaging of the ankle and foot does not show any evidence of fracture dislocation of the bones. The ultrasound does not show evidence of a blood clot in the leg It is possible that you may have twisted it and/or injured it without noticeable pain at the time. Be sure to rest over the next few days, apply ice for 10-15 4-6 times daily, use elastic bandage as provided for compression to the ankle, elevate the foot above the level of your chest. Use crutches to facilitate weight-bearing You can take Tylenol 500 mg, 2 tablets (1,000mg) every 4-6 hours as needed for pain, but not to exceed 3 doses daily (3,000mg).? Follow-up with primary care doctor. Prescriptions: No Action insulin glargine [Lantus Solostar U-100 Insulin] 100 unit/mL (3 mL) insulin pen subcut Tradjenta 5 mg tablet PO DAILY lisinopril 40 mg tablet PO DAILY ezetimibe 10 mg tablet PO DAILY amlodipine 5 mg tablet PO DAILY atorvastatin 20 mg tablet PO DAILY cholecalciferol (vitamin D3) 25 mcg (1,000 unit) tablet 25 mcg PO DAILY Trulicity 3 mg/0.5 mL pen injector subcut QWEEK sertraline 100 mg tablet 100 mg PO DAILY Referrals: Ras Fernando MD [Primary Care Provider] - Print Language: Chinese
--- NOTE | 2025-02-24 11:45 | PC.NURSE ---
Patient is a 69-year-old female who presents emergency department for evaluation of atraumatic right ankle/foot and swelling for 2 days. Unable to weight bear at this time. Alert and oriented, primarily mongolian speaking. Respirations even and non-labored. Abdomen soft, non-tender with positive bowel sounds. Positive pedal pulses bilat. Swelling and pain noted to right foot and ankle.
--- OUTSIDE RECORDS SUMMARY | 2025-02-24 12:07 | XMS_ITS | Clinical Summary ---
Author Organization [facility] Address [address] [place] [address] Care Team Providers Care User Support Specialist Name Role Phone Vandana Goode NP Primary Care Provider [phone] Source Comments PLEASE NOTE, if this patient [...] complication, without long-term current use of insulin ([facility]) 1 Strip as needed for high blood sugar Dx.: E11.9 Use tid as directed for dm 100 Each 11 09/19/20 18 Active blood-glucose meter (FREESTYLE LITE METER) monitoring kitIndications:T ype 2 diabetes mellitus without complication, without long-term current use of insulin ([facility]) as needed for blood glucose monitoring 1 Each 09/19/20 18 Active lancetsIndicatio ns:Type 2 diabetes mellitus without complication, without long-term current use of insulin ([facility]) Freestyle lite lancets Dx.: E11.9 [...] 08/24/2019 Overview (08/24/2019): 08/19/19 - seen at [facility] ED c/o vaginal bleeding. Pelvis U/S: IMPRESSION: [...] 12/21/17 01/11/2018 Overview (01/11/2018): 12/21-12/22/17 [place] [facility] [place] episode of syncope/ unreponsivenss following an emotional conversation with son who is in [place]. She had NIH score of 3 initially for being nonverbal but otherwise normal. CT and CTA h/n of head neg, tele monitoring without any cardiac arrthymias. Discharged next day. Outpatient ECHO and Holter monitor recommended Pap smear of cervix declined 12/30/2016 Colonoscopy refused 12/30/2016 Non-Macedonian speaking patient 10/13/2016 Non compliance with medical [...] foramen. Coronary artery disease invo lving [place] heart with angina pectoris ([facility]) [...] 06/02/2022, 08/0 12/2021, 12/15/2021, Additional history exists Idx-[id number] ( season) 2024 021, 12/28/2020 Imm-Influenza (#1) [...] complication, without long-term current use of insulin ([facility]) LIPID PANEL Routine 01/14/2021 12:00 PM [...] GLYCATED HEMOGLOBIN A1C 8.4(H) <6.5 % [facility] ESTIMATED AVERAGE GLUCOSE 194 mg/dL [facility] Blood Blood / Unknown 01/14/2021 1 2:00 PM EDT 01/14/2021 4:23 PM EDT [facility] - 01/14/2021 8:07 PM EDT [employer], [place] [address] Emergency Medicine Physician - Leandra Anderson MD PT ID [id number] ORD# [id number] Melissa Reyes [facility] - BLOOD DRAW Final Re sult Performing Organization Address City/[facility]/ZIP Co de Phone Number [address] [address], * (ABNORMAL) LIPID PANEL (01/14/2021 12:00 PM EDT) CHOLESTEROL 168 0 - 200 mg/dL [facility] TRIGLYCERIDES 198(H) 0 - 150 mg/dL [facility] HDL CHOLESTEROL 62 >40 mg/dL [facility] LDL CALCULATED 67 0 - 100 mg/dL [facility] TC-HDLC RATIO 2.7 0 - 4.4 mg/dL [facility] Blood Blood / Unknown 01/14/2021 1 2:00 PM EDT 01/14/2021 4:23 PM EDT Narrative [facility] - 01/14/2021 5:10 PM EDT [facility], [place] [address] Emergency Medicine Physician - Leandra Anderson MD PT ID [id number] ORD# [id number] Melissa Reyes [facility] - BLOOD DRAW Final Re sult Performing Organization Address City/[facility]/ZIP Co de Phone Number [address] [address], * (ABNORMAL) COMPRE METAB PANEL (01/14/2021 12:00 PM EDT) GLUCOSE 260(H) 70 - 100 mg/dL [facility] Comment:Reference range appl icable to fasting specimens only BUN 54(H) 5 - 25 mg/dL [facility] CREAT 1.49(H) 0.5 - 1.1 mg/dL [facility] GLOMERULAR FILTRATION RATE 35 [facility] Comment: If patient is -Lebanese, multiply result by 1.21 Chronic Kidney Disease: < 60 ml/min/1.73 square meters Kidney Failure: < 15 ml/min/1.73 square meters SODIUM 137 135 - 145 mEq/L [facility] POTASSIUM 4.1 3.5 - 5.5 mmol/L [facility] CHLORIDE 104 96 - 110 mmol/L [facility] CO2 24 21 - 32 mmol/L [facility] ANION GAP 9 3 - 11 [facility] CALCIUM 10.0 8.5 - 10.5 mg/dL [facility] TOTAL PROTEIN 7.6 6.0 - 8.0 G/dL [facility] ALBUMIN 4.0 3.2 - 5.0 G/dL [facility] BILI, TOTAL 0.5 0.0 - 1.4 mg/dL [facility] SGOT 12 10 - 42 U/L [facility] SGPT 28 10 - 60 U/L [facility] ALK PHOS 137(H) 42 - 121 U/L [facility] Blood Blood / Unknown 01/14/2021 1 2:00 PM EDT 01/14/2021 4:23 PM EDT [facility] - 01/14/2021 5:10 PM EDT [facility], [place] [address] Emergency Medicine Physician - Leandra Anderson MD PT ID [id number] ORD# [id number] Melissa Reyes [employer] LAB - BLOOD [place]RAW [place] [address], * MICROALBUMIN/CREATININE RATIO, URINE, RANDOM (01/14/2021 11:54 AM EDT) CREATININE, RANDOM URINE 113 mg/dL [facility] MICROALBUMIN, RANDOM 15.7 0.0 - 29.0 mg/L [facility] MICROALB/CRE RATIO RANDOM 13.8 0.0 - 30.0 mg/G [facility] Urine Urine specimen / Unknown 01/14/2021 11:54 AM EDT 01/14/2021 4:23 PM EDT Narrative [facility] - 01/14/2021 5:24 PM EDT [facility], a member of [address] [address] Emergency Medicine Physician - Leandra Anderson MD PT ID [id number] ORD# [id number] Melissa Reyes [employer] [facility] LAB - NO BLOOD DRAW Edite d Result - Final [address] [address], * MAMMOGRAM, ABSTRACTED (06/23/2019 8:55 AM EDT) MAMMOGRAM NEGATIVE NEGATIVE Anatomical Region Laterality Modality Other Impressions 06/23/2019 8:55 AM EDT No mammogramic evidence of malignancy BIRADS - 1 negative repeat 1 year Provider [facility] Final Result * DILATED RETINAL EYE EXAM WITH INTERPRETATION BY AN FABRIC AND ACCESSORIES ESTIMATOR OR HAND BOOTMAKER DOCUMENTED AND REVIEWED (DM)4 (07/21/2018 8:36 AM EDT) Impressions Danielle Neumann MA - 07/21/2018 8:36 AM EDT DM diabetes with mild, non-proliferative diabetic retinopathy noted- both eyes Repeat 1 year Provider [facility] OTHER Final Result * (ABNORMAL) HEPATITIS A,B,C PANEL (01/14/2018 10:53 AM EDT) HEPATITIS B SURFACE ANTIBODY NEGATIVE NEGATIVE [facility] HEPATITIS B SURFACE ANTIGEN NEGATIVE NEGATIVE [facility] Comment: Over the counter supplements containing high doses of biotin may interfere with this assay. ??If interference is suspected, patients shoud be retested after refraining from biotin supplements for 72 hours. HEPATITIS C VIRUS DIAGNOSTIC NEGATIVE NEGATIVE [facility] HEPATITIS A ANTIBODY TOTAL POSITIVE(A) NEGATIVE [facility] Comment: Over the counter supplements containing high doses of biotin may interfere with this assay. ??If interference is suspected, patients shoud be retested after refraining from biotin supplements for 72 hours. HEPATITIS B CORE ANTIBODY NEGATIVE NEGATIVE [facility] Blood specimen (specimen) Blood / Unknown 01/14/2018 10:53 AM EDT 01/14/2018 10:56 AM EDT Narrative [facility] - 01/14/2018 12:46 PM EDT [employer] [address] [place] [address] PT ID [id number] ORD# [id number] us Sujey Alfaro PA-C LAB - BLOOD DRAW Edited R esult - Final [facility] [address] [place] [address], from Last 3 Months or Most Recently Relevant to Health Maintenance Insurance [facility] D[facility] MEDICAID MEDICARE - [place] Care Teams User Support Specialist Relationship Specialty Start Date End Date Vandana Goode NP [facility] [place] [address] PCP - General Family Medicine, SENIOR INTERIOR DESIGNER 08/28/24
--- OUTSIDE RECORDS SUMMARY | 2025-02-24 12:07 | XMS_ITS ---
Author Organization [facility] Address [address] [place] [address] Care Team Providers Care Brush Filler Hand Name Role Phone KATHARINA ANGEL Primary Care Provider [phone] REASON FOR VISIT referral to Dr. Moy Encounters Encounter Location Date Provider Diagnosis [facility] [address] [address] 12/22/2024 KATHARINA ANGEL Plan Of Treatment Next Appt Details Provider Name:KATHARINA ANGEL , 06/14/2025 09:45:00 AM, [address] [place] [address] [address], [place], [address], Progress Notes * Rex BOSWELLB: (69 yo F)Acc No.[id number]:12/22/2024 Patient:?ELBERT, Fabianka :1955???Age:69 Y???Sex:Female Address:[address], [place] [address] * true * Date:? Generated for Printi ng/Triciag/eTransmitting on:?02/24/2025 12:06 PM EDT
--- OUTSIDE RECORDS SUMMARY | 2025-02-24 12:07 | XMS_ITS | Clinical Summary ---
Author Organization [facility] Address [address] [place] [phone] Phone Care Team Providers Care Survey Party Chief Name Role Phone Yang Fernando MD Primary Care Provider [phone] Allergies No known active allergies Medications Trulicity [...] MG tablet 2 Active ergocalciferol 1.25 MG (18490 UT) capsule Take 50,000 Units by mouth [...] 08/24/2019 Overview (11/24/2021): 08/19/19 - seen at [facility] ED c/o vaginal bleeding. Pelvis U/S: [...] Near syncope 01/11/2018 Overview (11/24/2021): 12/21-12/22/17 - [facility] Ed for episode of syncope/ unreponsivenss following [...] Office Visit [facility] [address] [address] [place]ordero [place] [address] [address] Health Maintenance Due Date Last [...] Creatinine, Ur 113.6 Not Estab. mg/dL [facility] Albumin, Urine 225.2 Not Estab. ug/mL [facility] Albumin/Creatin ine Ratio 198(H) 0 - 29 mg/g creat [facility] Comment: ? Normal: ?0 - ??29 ? Moderately increased: 30 - 300 ? Severely increased: ? >300 Urine (Urine, Clean Catch) 12/11/2024 10:35 AM EST 12/11/2024 us Taqueria Cordero MD LAB URINE ORDERABLES Final Resul t [facility] [place] [address] [place] [address] * (ABNORMAL) Vit D 25 hydroxy (12/11/2024 10:35 AM EST) Vitamin D, 25-OH, Total 24.0(L) 30.0 - 100.0 ng/mL [facility] Comment: Vitamin D deficiency has been defined by the [place] of Medicine and an Endocrine Society practice guideline as a level of serum 25-OH vitamin D less than 20 ng/mL (1,2). The Endocrine Society went on to further define vitamin D insufficiency as a level between 21 and 29 ng/mL (2). 1. IOM ([place] of Medicine). 2010. Dietary reference ?? intakes for calcium and D. [place]: The ?? National [employer]. 2. Shari MF, Lillian WALLACE, Nathan FERRELL, et al. ?? Evaluation, treatment, and prevention of vitamin D ?? deficiency: an Endocrine Society clinical practice ?? guideline. JCEM. 2010; 96(7):1911-30. Blood (Blood, Venous) 12/11/2024 10:35 AM EST 12/11/2024 Taqueria Cordero MD LAB BLOOD ORDERABLES Final Resul t Performing Organization Address City/[facility] Co de Phone Number [facility] CENTERTeng[facility] [place] [address] [place] [address] * (ABNORMAL) PTH, intact (12/11/2024 10:35 AM EST) PTH 96(H) 15 - 65 pg/mL [facility] Blood (Blood, Venous) 12/11/2024 10:35 AM EST 12/11/2024 Taqueria Cordero MD LAB BLOOD ORDERABLES Final Resul t Performing Organization Address City/[facility] Co de Phone Number [employer] [place] [address] [place] [address] * (ABNORMAL) Renal funtion panel (12/11/2024 10:35 AM EST) Glucose 190(H) 70 - 99 mg/dL [facility] BUN 35(H) 8 - 27 mg/dL [facility] Creatinine 1.57(H) 0.57 - 1.00 mg/dL [facility] eGFR CKD-EPI CR 2020 35(L) >59 mL/min/1.7 3 [facility] BUN/Creatinine Ratio 22 12 - 28 [facility] Sodium 139 134 - 144 mmol/L [facility] Potassium 4.8 3.5 - 5.2 mmol/L [facility] Chloride 104 96 - 106 mmol/L [facility] Bicarbonate (CO2) 19(L) 20 - 29 mmol/L [facility] Calcium 9.8 8.7 - 10.3 mg/dL [facility] Albumin 4.4 3.9 - 4.9 g/dL [facility] Phosphorus 3.6 3.0 - 4.3 mg/dL [facility] Blood (Blood, Venous) 12/11/2024 10:35 AM EST 12/11/2024 Taqueria Cordero MD LAB BLOOD ORDERABLES Final Resul t [facility] [address] [place] [address] * (ABNORMAL) Hemoglobin A1c (06/02/2022 2:46 PM EDT) Hemoglobin A1C 7.5(H) (4.0-5.6) % [facility] Comment: MONITORING: In known diabetic patients, hemoglobin A1c targets should be discussed with health care provider. DIAGNOSTIC USE: ??The [place] Diabetes Association (ADA) and the World Health [...] Supplement 1 Testing performed or reported by [facility], a Service of [facility], [address] [place] [address] Khanh Lopez MD, Roundhouse Supervisor [facility]# [id number] Blood (Blood, Venous) 06/02/2022 2:46 PM EDT 06/02/2022 2:49 PM EDT Kartik Ureña MD LAB BLOOD ORDERABLES Final Re sult [facility] from Last 3 Months or Most Recently Relevant to Health Maintenance Insurance Medicare Medicaid [place] Medicare Medicaid [place] Care Teams Survey Party Chief Relationship Specialty Start Date End Date Yang Fernando MD [address] [place] [address] PCP - General Internal Medicine 12/02/21
--- OUTSIDE RECORDS SUMMARY | 2025-02-24 12:07 | XMS_ITS | Patient Health Record ---
Author Organization [facility] Address [address] [facility] [address] [place] [address] Care Team Providers Care Test And Turn Up Technician Name Role Phone KATHARINA ANGEL Primary Care Provider Allergies No Known Allergies Results Component Value Reference Range Notes Comp. Metabolic Panel [id number] Reviewed date:12/13/2024 07:46:01 AM Interpretation: Performing Lab:[facility], [address] [facility], Phone - [phone], Director - MDJodry Notes/Report: Glucose 189 70-99 [...] IU/L ALT (SGPT) 19 0-32 IU/L Lipid Panel-[id number] Reviewed date:12/13/2024 07:45:56 AM Interpretation: Performing Lab:[facility], [address] [facility] [employer] [place], [place], Phone - [phone], Director - MDJodry Notes/Report: Cholesterol, Total 157 100-199 mg/dL Triglycerides 165 0-149 mg/dL HDL Cholesterol 57 >39 mg/dL VLDL Cholesterol Deric 28 5-40 mg/dL LDL Chol Calc ([facility]) 72 0-99 mg/dL Albumin/Creatinine Ratio,Daniel ne-[id number] Reviewed date:12/13/2024 07:46:09 AM Interpretation: Performing Lab:[facility] [place], [address] [facility], [place], Phone - [phone], Director - MDJodry Notes/Report: Creatinine, Urine 113.6 Not Estab. mg/dL Albumin, Urine 218.3 Not Estab. ug/mL Alb/Creat Ratio 192 0-29 mg/g creat Normal: 0 - 29 Moderately increased: 30 - 300 Severely increased: >300 Hemoglobin [id number] Reviewed date:12/13/2024 07:46:17 AM Interpretation: Performing Lab:[facility] [place], [address] [facility], [place], Phone - [phone], Director - MDJoy Notes/Report: Hemoglobin A1c 8.0 4.8-5.6 % . Prediabetes: 5.7 - 6.4 Diabetes: >6.4 Glycemic control for adults with diabetes: <7.0 Reason For Referral Reason EUN- Dr Moy Diagnosis 1 Anxiety disorder, un specified (F41.9) Referral Organization [facility] Referring Provider First Name KATHARINA Referring Provider [...] Active Diclofenac Sodium 1 % as directed Showroom Salesperson ally daily for 30 days Active hydroCHLOROthiazide 25 MG 1 tablet in th e morning Orally Once a day for 30 days Active Tradjenta 5 MG TAKE 1 TABLET BY GALINDO TH EVERY DAY for 90 Active Vitamin D (Ergocalciferol) 1.25 MG (04901 UT) TAKE 1 CAPSULE BY MOUTH ONE [...] Disorder due to type 2 diabetes mellitus (411546978) Type 2 diabetes mellitus with unspecified complications (E11.8) Active confirmed Problem Vitamin D deficiency (81270427) Vitamin D deficiency, unspecified (E55.9) Active confirmed Problem Obesity due to excess calories (405544791) Other obesity due to excess calories (E66.09) Active confirmed Problem Mixed hyperlipidemia (426907407) Mixed hyperlipidemia (E78.2) Active confirmed Problem Mild recurrent major depression (59604705) Major depressive disorder, recurrent, mild (F33.0) Active confirmed Problem Anxiety disorder (428108120) Anxiety disorder, unspecified (F41.9) Active confirmed Problem Essential hypertension (81011232) Essential (primary) hypertension (I10) Active confirmed Problem Constipation (04525774) Constipation, unspecified (K59.00) Active confirmed Problem Polyarthritis (239688144) 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) Active confirmed Problem Degeneration of thoracolumbar intervertebral disc (63452466) Other intervertebral disc degeneration, 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) Active confirmed Problem Age-related osteoporosis (334401452) Age-related osteoporosis without current pathological fracture (M81.0) Active confirmed Problem Chronic kidney disease stage 3 (disorder) (270785021) Chronic kidney disease, stage 3 (moderate) (N18.3) Active confirmed Problem Abnormal uterine bleeding (78217004931489) Abnormal uterine and vaginal bleeding, unspecified (N93.9) Active confirmed Problem Abnormal gait (63781721) Other abnormalities of gait and mobility (R26.89) Active confirmed Problem Chronic kidney disease stage 3B (disorder) (586886330) Chronic kidney disease, stage 3b (N18.32) Active confirmed Problem History of disease caused by Severe acute respiratory syndrome coronavirus 2 (situation) (0877631850283951 05) Personal history of COVID-19 (Z86.16) Active confirmed Problem Anxiety state (410061647) Anxiety state, unspecified (F41.1) Active confirmed Problem Abnormal gait (37208447) Gait instability (R26.81) Active confirmed Vital Signs Heart Rate 80 /min 12/13/2024 Temperature 97.3 degrees Fahrenheit 12/13/2024 Oximetry 98 % 12/13/2024 Blood pressure diastolic 80 mm Hg 12/13/2024 Height 61 in 12/13/2024 Blood pressure systolic 130 mm Hg 12/13/2024 Weight 175.2 lbs 12/13/2024 BMI 33.1 kg/m2 12/13/2024 Encounters Encounter Location Date Provider Diagnosis [address] [place] [address] 06/12/2024 [facility] Type 2 diabetes bo itus with unspecified complications E11.8 ; Essential (primary) hypertension I10 ; Mixed hyperlipidemia E78.2 and Chronic kidney disease, stage 3 (moderate) N18.[address] [place] [address] 12/13/2024 KATHARINA CHAVEZ Encounter for genera l adult medical examination without abnormal findings Z00.00 ; Type 2 diabetes mellitus with unspecified complications E11.8 ; Essential (primary) hypertension I10 ; Mixed hyperlipidemia E78.2 ; Chronic kidney disease, stage 3b N18.32 ; Age-related osteoporosis without current pathological fracture M81.0 ; Other obesity due to excess calories E66.09 and Dietary counseling and surveillance Z71.[address] [place] [address] 04/25/[address] [place] [address] 06/13/[address] [place] [address] 12/13/[address] [place] [address] 12/22/[address] [place] [address] 01/04/2025 [facility] Assessments Encounter Date Diagnosis (ICD Code) Assessment Notes Treatment Notes Treatment Clinical Notes Section Notes 12/13/2024 Type 2 diabetes mellitus with unspecified complications (ICD-10 - E11.8) is 69 years old Pashto speaking lady is accompanied by her daughter [...] lisinopril, atorvastatin and Zetia. She is seen bundle collector in the past 1 year. Foot care [...] Dr. Camarillo. Multiple joint osteoarthritis. She takes kiue-xlb-fttmoom Tylenol and also takes tizanidine 2 mg [...] (ICD-10 - Z00.00) is 69 years old Pashto speaking lady is accompanied by her daughter [...] lisinopril, atorvastatin and Zetia. She is seen bundle collector in the past 1 year. Foot care [...] Dr. Camarillo. Multiple joint osteoarthritis. She takes wqhi-elx-nnkvtua Tylenol and also takes tizanidine 2 mg [...] on right medications. She has seen her bundle collector in the past 1 year. Foot care [...] appropriate hydration. Avoid NSAIDs.She follows up with entertainment production professional Class 1 obesity. Advised dietary restrictions and [...] this note under HIPAA compliance and under [place] law mandated for scribe services. Patient aware [...] on right medications. She has seen her bundle collector in the past 1 year. Foot care [...] appropriate hydration. Avoid NSAIDs.She follows up with entertainment production professional Class 1 obesity. Advised dietary restrictions and [...] this note under HIPAA compliance and under [place] law mandated for scribe services. Patient aware of service. Verbal consent and written consent taken from the patient. Patient understands and verbalizes understanding of the scribes services and all questions answered regarding scribes services. Patient agrees to use of scribes services. 12/13/2024 Essential (primary) hypertension (ICD-10 - I10) is 69 years old Pashto speaking lady is accompanied by her daughter [...] lisinopril, atorvastatin and Zetia. She is seen bundle collector in the past 1 year. Foot care [...] Dr. Camarillo. Multiple joint osteoarthritis. She takes ypit-fyi-bvxsfnd Tylenol and also takes tizanidine 2 mg [...] (ICD-10 - E78.2) is 69 years old Pashto speaking lady is accompanied by her daughter [...] lisinopril, atorvastatin and Zetia. She is seen bundle collector in the past 1 year. Foot care [...] Dr. Camarillo. Multiple joint osteoarthritis. She takes binp-qge-hiyrsbt Tylenol and also takes tizanidine 2 mg [...] on right medications. She has seen her bundle collector in the past 1 year. Foot care [...] appropriate hydration. Avoid NSAIDs.She follows up with entertainment production professional Class 1 obesity. Advised dietary restrictions and [...] this note under HIPAA compliance and under [place] law mandated for scribe services. Patient aware of service. Verbal consent and written consent taken from the patient. Patient understands and verbalizes understanding of the scribes services and all questions answered regarding scribes services. Patient agrees to use of scribes services. 06/12/2024 Chronic kidney disease, stage 3 (moderate) [...] on right medications. She has seen her bundle collector in the past 1 year. Foot care [...] appropriate hydration. Avoid NSAIDs.She follows up with entertainment production professional Class 1 obesity. Advised dietary restrictions and [...] this note under HIPAA compliance and under [place] law mandated for scribe services. Patient aware of service. Verbal consent and written consent taken from the patient. Patient understands and verbalizes understanding of the scribes services and all questions answered regarding scribes services. Patient agrees to use of scribes services. 12/13/2024 Chronic kidney disease, stage 3b (ICD-10 - N18.32) is 69 years old Pashto speaking lady is accompanied by her daughter [...] lisinopril, atorvastatin and Zetia. She is seen bundle collector in the past 1 year. Foot care [...] Dr. Camarillo. Multiple joint osteoarthritis. She takes cfbh-ost-hdqeakh Tylenol and also takes tizanidine 2 mg [...] (ICD-10 - M81.0) is 69 years old Pashto speaking lady is accompanied by her daughter [...] lisinopril, atorvastatin and Zetia. She is seen bundle collector in the past 1 year. Foot care [...] Dr. Camarillo. Multiple joint osteoarthritis. She takes aksp-xyc-jyofkgj Tylenol and also takes tizanidine 2 mg [...] (ICD-10 - E66.09) is 69 years old Pashto speaking lady is accompanied by her daughter [...] lisinopril, atorvastatin and Zetia. She is seen bundle collector in the past 1 year. Foot care [...] Dr. Camarillo. Multiple joint osteoarthritis. She takes jjgx-kpp-zzlgupa Tylenol and also takes tizanidine 2 mg [...] (ICD-10 - Z71.3) is 69 years old Pashto speaking lady is accompanied by her daughter [...] lisinopril, atorvastatin and Zetia. She is seen bundle collector in the past 1 year. Foot care [...] Dr. Camarillo. Multiple joint osteoarthritis. She takes dxur-okw-ymfhuch Tylenol and also takes tizanidine 2 mg [...] PANEL 08/12/2022 RESPIRATORY PATHOGEN PANEL, PCR 09/29/20 22 US Transvaginal 02/23/2024 Future Test Test Name Order Date Hemoglobin [id number] 12/13/2024 Next Appt Details Provider Name:KATHARINA ANGEL , 06/14/2025 09:45:00 AM, [address] [place] [address], [phone], Insurance Providers Payer Name Payer Address Payer Phone Subscriber Number Group Number Insured Name Patient Relationship to Insured Coverage Start Date Coverage End Date Medicare [address] [place] [id number] ElbertBen bowles Self - patient is the insured 1 [place] [address] [place] [id number] Ben Boswell Self - patient is the insured [facility] Supplement [address] [place] [address] [id number] Ben Boswell Self - patient is the insured Medical (General) History Medical History History ICD Code hypertension hyperlipidemia CKD stage 3 see Renal diabetes mellitus type 2 anxiety/depression and see Therapist Personal history of COVID-19 10/[address] Hanna Surgical History Surgery Date(Month/Year) hysterectomy
--- OUTSIDE RECORDS SUMMARY | 2025-02-24 12:07 | XMS_ITS ---
Author Organization [facility] Address [address] [place] [address] Care Team Providers Care Staff Readiness Officer Name Role Phone KATHARINA ANGEL Primary Care Provider REASON FOR VISIT Psych referral Encounters Encounter Location Date Provider Diagnosis [address] [address] 01/04/2025 KATHARINA ANGEL Plan Of Treatment Next Appt Details Provider Name:KATHARINA ANGEL , 06/14/2025 09:45:00 AM, [address] [place] [address], [place], [address], Progress Notes * Rex BOSWELLB: (69 yo F)Acc No.[id number]:01/04/2025 Patient:?Susanna BOSWELLbianka :1955???Age:69 Y???Sex:Female Address:[place] [address] * true * Date:? Generated for Constanzai gloria/Abhay/eTransmitting on:?02/24/2025 12:06 PM EDT
--- OUTSIDE RECORDS SUMMARY | 2025-02-24 12:07 | XMS_ITS | Encounter Summary ---
Author Organization [facility] Address [address] [place] [address] Care Team Providers Care Anthropologist Physical Name Role Phone Vandana Goode SENIOR SOFTWARE TESTER Primary Care Provider [phone] Encounter Details Date Type Department Care Team (Late st Contact Info) Description 10/21/2015 Interim Notes [facility] [address] [place] [phone] Kerrie Wooten, COUNSELOR [address] [place] [address] Social History Tobacco Use Types Packs/Day Years [...] documented as of this encounter Care Teams Anthropologist Physical Relationship Specialty Start Date End Date Vandana Goode NP [address] [place] [address] PCP - General Family Medicine, SENIOR SOFTWARE TESTER 08/28/24 documented as of this encounter
[2025-02-24 12:12] VITALS: BP 119/62; PULSE 78; RESP 18; TEMP 36.8; O2SAT 99
[2025-02-24 14:06] VITALS: BP 143/54; PULSE 77; RESP 16; TEMP 36.8; O2SAT 100
[2025-02-24 16:06] VITALS: BP 149/55; PULSE 82; RESP 18; O2SAT 98
[2025-02-24 17:01] VITALS: BP 149/55; PULSE 82; RESP 18; TEMP 36.7; O2SAT 98
== END 2025-02-24 16:30 | disposition home or self-care (01) ==
PROVIDERS: Emergency Provider Emergency Medicine; PCP Hospitalist
DX: M25.571 Pain in right ankle and joints of right foot (principal); R60.0 Localized edema; M79.671 Pain in right foot; Z79.899 Other long term (current) drug therapy
CPT/HCPCS: 73610; 73620; 93971; 99284

== ENCOUNTER → 2025-02-24 11:25 | Outpatient (BNV) | payer MEDICARE, MEDICAID, SELFPAY | PROVIDERS: Emergency Provider Emergency Medicine; PCP Hospitalist; Visit Provider Radiology Diagnostic Radiology | DX: M79.661 Pain in right lower leg (principal); M25.571 Pain in right ankle and joints of right foot; M79.671 Pain in right foot | CPT/HCPCS: 73610; 73620 ==